=== PATIENT | male | born 1950 | race Caucasian/White ===

== ENCOUNTER 2023-12-10 13:59 | Outpatient (AMB) | payer OTHER, SELFPAY ==
--- NOTE | 2023-12-10 14:03 | HO.NEPHOV ---
Vital Signs 12/10/23 14:15 Height 5 ft 7 in Weight 185 lb BMI 29.0 Intake Visit Reasons: Gorge'carlos 12/02 missed appt Allergies No Known Allergies Allergy (Verified 12/10/23 14:18) HPI Comments Details: I had the privilege of seeing Thomas by tele health in of his chronic kidney disease and nephrolithiasis. He has not had any renal function blood work done for some time. His blood sugar control is not optimal. He follows up with Urology for his renal stone disease. He denies any nausea, vomiting, diarrhea hematuria, chest pain, shortness of, pedal edema or orthostatic symptoms. [facility] He maintains good hydration and avoids nonsteroidal anti-inflammatories. There were no new active issues at the time this tele health visit. [facility]LY [facility] Medical History (Updated 12/10/23 @ 14:32 by Ramy Diaz MD) Essential (primary) hypertension Chronic kidney disease, stage 3a Renal stone Surgical History (Updated 12/10/23 @ 14:17 by Aneta Fletcher MA) H/O hemorrhoidectomy H/O colonoscopy Family History (Updated 12/10/23 @ 14:18 by Aneta Fletcher MA) Mother Cancer Father Heart disease Brother Heart disease Social History (Updated 12/10/23 @ 14:16 by Aneta Fletcher MA) Alcohol intake: never Patient Tobacco Use Status: Former Tobacco user Use of substances other than those prescribed or required for medical reasons: No Physical Exam Vital Signs: BMI result Body Mass Index 29.0 Telehealth Telehealth Telehealth Platform: Telephone Location of provider rendering services: practice address Location of patient: address on file Patient Identification confirmed using: Name, : Yes Telehealth method: voice only Patient verbally consented to treatment: Yes Patient verbally consented to billing insurance company: Yes Patient informed of any privacy concerns related to visit: No Minutes spent on Phone/Video with Pt.: 10 Results Reviewed Nephrology Results: No Data to Display Assessment & Plan Assessment & Plan (1) Renal stone: Code(s): N20.0 - Calculus of kidney Category: Medical (2) Chronic kidney disease, stage 3a: Code(s): N18.31 - Chronic kidney disease, stage 3a Category: Medical Plan Thomas has CKD stage 3 at baseline. His renal functions had been stable as per the patient. He has not had any renal function blood work for some time which I ordered. He avoids nonsteroidal anti-inflammatories. His blood pressure has been at goal. He should maintain better blood sugar control. He is not on any thiazides. He was encouraged to maintain good hydration and avoid nonsteroidal anti-inflammatories. I did not make any medication changes today but rather ordered follow-up blood work and urine studies. Answered all questions. Follow-up appointment given. Orders: Orders Electrolytes Today I10 - Essential (primary) hypertension, N18.31 - Chronic kidney disease, stage 3a, N20.0 - Calculus of kidney Calcium Today I10 - Essential (primary) hypertension, N18.31 - Chronic kidney disease, stage 3a, N20.0 - Calculus of kidney Blood Urea Nitrogen Today I10 - Essential (primary) hypertension, N18.31 - Chronic kidney disease, stage 3a, N20.0 - Calculus of kidney Complete Blood Count Auto Diff Today I10 - Essential (primary) hypertension, N18.31 - Chronic kidney disease, stage 3a, N20.0 - Calculus of kidney Protein Creatinine Ratio, Ur Today I10 - Essential (primary) hypertension, N18.31 - Chronic kidney disease, stage 3a, N20.0 - Calculus of kidney Creatinine Today I10 - Essential (primary) hypertension, N18.31 - Chronic kidney disease, stage 3a, N20.0 - Calculus of kidney Hemoglobin A1c Today I10 - Essential (primary) hypertension, N18.31 - Chronic kidney disease, stage 3a, N20.0 - Calculus of kidney Coding Level of Care Code Tele Est Pt Level 4 (70976) Diagnoses Renal stone N20.0 Chronic kidney disease, stage 3a N18.31
[2023-12-10 14:15] VITALS: BMI 29.0
== END 2023-12-10 15:22 | disposition home or self-care (01) ==
PROVIDERS: Visit Provider Internal Medicine Nephrology
DX: N20.0 Calculus of kidney (principal); N18.31 Chronic kidney disease, stage 3a
CPT/HCPCS: 99214

== ENCOUNTER → 2023-12-10 13:59 | Outpatient (BNVA) | payer OTHER, SELFPAY | PROVIDERS: Visit Provider Internal Medicine Nephrology ==

== ENCOUNTER 2024-03-25 09:17 | Outpatient (REF) | payer OTHER, SELFPAY ==
[2024-03-25 17:35] LABS: MANUAL DIFF FLAG NO
[2024-03-25 17:38] LABS: Basophils Percent Auto 0.6 % (0-2); Eosinophils Absolute Auto 0.2 X10*3/uL (0.0-0.4); Eosinophils Percent Auto 3.1 % (0-4); Hematocrit 36.7 % (42.0-52.0); Hemoglobin 12.5 g/dl (14.0-18.0); Imm Gran Abs Auto 0.01 X10*3/uL (0.00-0.03); Imm Gran Pct Auto 0.2 % (0.0-0.4); Lymphocytes Absolute Auto 1.4 X10*3/uL (1.2-4.9); Lymphocytes Percent Auto 27.3 % (20-40); Mean Corpuscular HGB Conc 34.1 g/dl (31.0-36.0); Mean Corpuscular Hemoglobin 31.5 pg (27.0-33.0); Mean Corpuscular Volume 92.4 fL (80.0-98.0); Mean Platelet Volume 10.4 fL (9.4-12.4); Monocytes Absolute Auto 0.3 X10*3/uL (0.1-1.2); Monocytes Percent Auto 6.6 % (2-11); Neutrophils Absolute Auto 3.2 x10*3/uL (2.0-8.3); Neutrophils Percent Auto 62.2 % (45-73); Platelet Count 211 X10*3/uL (160-400); Red Blood Count 3.97 X10*6/uL (4.60-5.80); White Blood Count 5.2 X10*3/uL (4.8-10.8)
[2024-03-25 17:49] LABS: Anion Gap 12 (12-20); Blood Urea Nitrogen 19 mg/dL (9-16); Calcium 9.2 mg/dL (8.4-10.2); Carbon Dioxide 26 mmol/L (22-29); Chloride 106 mmol/L (96-108); Estimated Glomerular Filt Rate 51; Potassium 4.1 mmol/L (3.3-5.1); Sodium 140 mmol/L (135-145)
[2024-03-25 18:06] LABS: Creatinine Urine 188.73 mg/dL; Protein/Creatinine Ratio, Ur 0.12 (<0.2); Total Protein Urine Random 22 mg/dL (<12)
[2024-03-26 07:29] LABS: Estimated Average Glucose 128 mg/dL; Hemoglobin A1c % 6.1 % (<6.0)
== END 2024-03-25 09:18 | disposition home or self-care (01) ==
LOC: HO.HKASLDS 09:17
PROVIDERS: Visit Provider Internal Medicine Nephrology
DX: I12.9 Hypertensive chronic kidney disease with stage 1 through stage 4 chronic kidney disease, or unspecified chronic kidney disease (principal); N18.31 Chronic kidney disease, stage 3a; N20.0 Calculus of kidney
CPT/HCPCS: 36415; 80051; 82310; 82565; 82570; 83036; 84156; 84520; 85025

== ENCOUNTER 2024-03-31 10:55 | Outpatient (AMB) | payer OTHER, SELFPAY ==
[2024-03-31 11:05] VITALS: BP 130/64; PULSE 74; O2SAT 98; BMI 27.4
--- NOTE | 2024-03-31 11:05 | HO.NEPHOV_ITS ---
Vital Signs 03/31/24 11:05 Height 5 ft 7 in Weight 175 lb BMI 27.4 BP 130/64 Blood Pressure Location Lt brachial Position Sitting Pulse 74 Pulse Source Pulse Oximeter Pulse Oximetry (%) 98 Oxygen Delivery Method Room Air Intake Visit Reasons: 4 Months- Conf Tug Master Required: No Accompanied by: Self / Same As Patient Allergies No Known Allergies Allergy (Verified 03/31/24 11:07) HPI Comments Details: I had the privilege of seeing Thomas in of his chronic kidney disease and nephrolithiasis. His blood sugar control is not optimal. He used to follow up with Urology for his renal stone disease. He denies any nausea, vomiting, diarrhea hematuria, chest pain, shortness of, pedal edema or orthostatic symptoms. [facility] He maintains good hydration and avoids nonsteroidal anti-inflammatories. There were no new active issues at the time PENDING SALE TO [facility] Medical History (Updated 12/10/23 @ 14:32 by Ramy Diaz MD) Essential (primary) hypertension Chronic kidney disease, stage 3a Renal stone Surgical History H/O hemorrhoidectomy H/O colonoscopy Family History Mother Cancer Father Heart disease Brother Heart disease Social History Alcohol intake: never Patient Tobacco Use Status: Former Tobacco user Review of Systems Const All systems reviewed & are unremarkable except as noted in HPI and below Physical Exam Vital Signs: Last Vital Signs Pulse 74 03/31/24 11:05 BP 130/64 03/31/24 11:05 Pulse Ox 98 03/31/24 11:05 Oxygen Delivery Method Room Air 03/31/24 11:05 BMI result Body Mass Index 27.4 Const General: comfortable and no acute distress Orientation/consciousness: patient oriented x3 HEENT Head: Yes normocephalic Mouth: Normal oral and palatal mucosa present Eyes EOM: EOMs intact bilaterally Neck Neck: Yes supple Resp Auscultation: clear to auscultation bilaterally Cardio Jugular venous distension: no JVD Rate: regular rate GI Palpation (GI): Soft to palpation Auscultation: normal bowel sounds General: Yes no CVA tenderness Back/Spine/Pelvis Back: no CVA tenderness Skin General skin exam: no rashes or lesions noted Neuro General: patient oriented x3 and moves all extremities Extrem General: Yes no pedal edema Results Reviewed Nephrology Results: Hgb 12.5 g/dl (14.0-18.0) L 03/25/24 WBC 5.2 X10*3/uL (4.8-10.8) 03/25/24 Plt Count 211 X10*3/uL (160-400) 03/25/24 Sodium 140 mmol/L (135-145) 03/25/24 Potassium 4.1 mmol/L (3.3-5.1) 03/25/24 Chloride 106 mmol/L (96-108) 03/25/24 Carbon Dioxide 26 mmol/L (22-29) 03/25/24 BUN 19 mg/dL (9-16) H 03/25/24 Creatinine 1.37 mg/dL (0.5-1.4) 03/25/24 Calcium 9.2 mg/dL (8.4-10.2) 03/25/24 Urine Creatinine 188.73 mg/dL 03/25/24 Protein/Creatinin Ratio 0.12 (<0.2) 03/25/24 Assessment & Plan Assessment & Plan (1) Chronic kidney disease, stage 3a: Code(s): N18.31 - Chronic kidney disease, stage 3a Category: Medical (2) Essential (primary) hypertension: Code(s): I10 - Essential (primary) hypertension Category: Medical (3) Renal stone: Code(s): N20.0 - Calculus of kidney Category: Medical Plan Thomas has CKD stage 3 at baseline. His renal functions had been stable. He is a great candidate for SGLT2 i. He avoids nonsteroidal anti-inflammatories. His blood pressure has been at goal. He should maintain better blood sugar control. He was encouraged to maintain good hydration and avoid nonsteroidal anti- inflammatories. I did not make any medication changes today but rather ordered follow-up blood work and urine studies. Answered all questions. Follow-up appointment given. Orders: Orders Electrolytes Today I10 - Essential (primary) hypertension, N18.31 - Chronic kidney disease, stage 3a, N20.0 - Calculus of kidney Creatinine Today I10 - Essential (primary) hypertension, N18.31 - Chronic ki dney disease, stage 3a, N20.0 - Calculus of kidney Blood Urea Nitrogen Today I10 - Essential (primary) hypertension, N18.31 - Chronic kidney disease, stage 3a, N20.0 - Calculus of kidney Coding Level of Care Code Est Pt Level 4 (21791) Diagnoses Chronic kidney disease, stage 3a N18.31 Essential (primary) hypertension I10 Renal stone N20.0
== END 2024-03-31 11:19 | disposition home or self-care (01) ==
PROVIDERS: Visit Provider Internal Medicine Nephrology
DX: N18.31 Chronic kidney disease, stage 3a (principal); I10 Essential (primary) hypertension; N20.0 Calculus of kidney
CPT/HCPCS: 99214

== ENCOUNTER → 2024-03-31 10:55 | Outpatient (BNVA) | payer OTHER, SELFPAY | PROVIDERS: Visit Provider Internal Medicine Nephrology | DX: I12.9 Hypertensive chronic kidney disease with stage 1 through stage 4 chronic kidney disease, or unspecified chronic kidney disease (principal); N18.31 Chronic kidney disease, stage 3a; N20.0 Calculus of kidney | CPT/HCPCS: 99212 ==

== ENCOUNTER 2024-09-10 10:23 | Outpatient (REF) | payer OTHER, SELFPAY ==
--- OUTSIDE RECORDS SUMMARY | 2024-09-10 11:32 | XMS_ITS | Encounter Summary ---
Author Name [facility] Organization [facility] Address [address] [place] [address] Care Team Providers Care Chief Compliance Officer Name Role Phone FIDENCIO RUSH Primary Care Provider Unavailabl e Insurance Providers: All historical and current Section Date Range: From patient's date of to the date document was created. This section includes the names of all active insurance providers for the patient. Insurance Provider Type of Coverage Plan Name Start of Policy Coverage End of Policy Coverage Group Number Member ID Insurance Provider's Telephone Number Policy Harden's Name Patient's Relationship to Policy Harden [employer] [facility] MEDICARE ADVANTAGE [place] ID[place] Oct 21, 2023 [id number] [phone] Thelma GERMAN PATIENT [facility]UARDO [facility] ([place]) MEDICARE ADVANTAGE [facility] Jul 22, 2020 [id number] Thelma GERMAN PATIENT MEDICAID MEDICAID [facility] Jul 22, 2012 MEDICAI D [id number] Thelma GERMAN PATIENT Selected Encounter This section includes the information on record at [place] for the Encounter. Date/Time Encounter Type Encounter Description Reason Provider Source Jun 26, 2024 08:30 AM OFFICE O/P EST MOD 30 MIN PRIMARY CARE/MEDICINE ICD-10-CM G31.84 Mild cognitive impairment of uncertain or unknown etiology FIDENCIO RUSH [place] Encounter Template Text not used by [facility] Assessments - Encounter Diagnoses This section includes the primary and secondary diagnoses documented for the Encounter. Date/Time Primary/Secondary Diagnosis Diagnosis Name Provider Source Jun 30, 2024 02:04 PM PRIMARY Mild cognitive impairment of uncertain or unknown etiology FIDENCIO RUSH [place] Jun 30, 2024 02:04 PM SECONDARY Chronic kidney disease, stage 3 unspecified FIDENCIO RUSH [place] Jun 30, 2024 02:04 PM SECONDARY Essential (primary) hypertension FIDENCIO RUSH [place] Jun 30, 2024 02:04 PM SECONDARY Mixed hyperlipidemia FIDENCIO RUSH [place] Jun 30, 2024 02:04 PM SECONDARY Type 2 diabetes mellitus without complications FIDENCIO RUSH [place] Jun 30, 2024 02:04 PM SECONDARY Ulcerative colitis, unspecified with other complication NIMA RUSHRA Ledezma [place] Plan of Treatment: Future Appointments (+ 6 months) and Future Tests (+/- 45 days) The Plan of Treatment section includes [facility] care [facility] the [facility] This section includes future appointments and future orders which are active, pending or scheduled. Future Appointments This section includes appointments that were scheduled to occur 6 months from the date of the Encounter, up to a maximum of 20 appointments. The data comes from all [place] treatment facilities. Appointment Date/Time Appointment Type Appointme nt Facility Name Jul 17, 2024 09:45 AM AMBULATORY - MEDICINE [facility] Sep 17, 2024 09:30 AM AMBULATORY MEDICINE [facility] Dec 25, 2024 09:30 AM AM[facility]ORY - MEDICINE [facility] Lab Results: +/- 30 days of the encounter This section includes the Chemistry and Hematology Lab Results on record with [place] for the patient. Radiology Reports and Pathology Reports are provided separately, in subsequent sections. Lab Results This section contains the Chemistry/Hematology Results that were resulted 30 days before or 30 daysafter the date of the Encounter. Date/Time Source Result Type Result - Unit Interpretation Reference Range Comment Jun 22, 2024 09:11 AM [place] HEMOGLOBIN A1C PANEL Specimen Type: BLOOD Comment: Values obtained from A1C measurements can vary. For atypical A1C assays, a reported value of 7.0 could actually be between 6.72 and 7.28 if measured by a reference method. A reported value of 9.0 could actually be between 8.73 and 9.27. Ref: http://www.ngs p.org/CAPdata. asp Ordering Provider: HIPOLITO HECK Report Released Date/Time: Mar 30, 2024 07:54 AM Reporting Lab: [address] [address] Performing Lab: [facility] [address] [address] HEMOGLOBIN A1C 5.8 H 4.0-5.6 Jun 22, 2024 09:11 AM [place] TSH Specimen Type: SERUM No comment entered. Ordering Provider: HIPOLITO HECK Report Released Date/Time: Mar 30, 2024 07:54 AM Reporting Lab: [address] [address] Performing Lab: [address] [address] TSH 1.83 u[IU]/mL 0.35-5.00 Jun 22, 2024 09:11 AM [facility] LIPID PANEL FASTING Specimen Type: SERUM No comment entered. Ordering Provider: HIPOLITO HECK Report Released Date/Time: Mar 30, 2024 07:54 AM Reporting Lab: [address] [address] Performing Lab: [address] [address] CHOLESTEROL 161 mg/dL TRIGLYCERIDE 74 mg/dL 0-150 LDL calculated 101 mg/dL 0-129 CHOL/HDL 3.6 HDL CHOLESTEROL 45 mg/dL 40-60 Jun 22, 2024 09:11 AM [facility] BASIC METABOLIC PANEL (fasting) Specime n Type: SERUM No comment entered. Ordering Provider: HIPOLITO HECK Report Released Date/Time: Mar 30, 2024 07:54 AM Reporting Lab: [address] [address] Performing Lab: [address] [address] UREA NITROGEN 20 mg/dL 7-25 GLUCOSE 137 mg/dL H 65-100 SODIUM 140 mmol/L 135-145 POTASSIUM 4.5 mmol/L 3.5-5.0 CHLORIDE 106 mmol/L 100-110 CO2 24 meq/L 20-30 CREATININE, Serum 1.41 mg/dL H 0.50-1.40 eGFR(CKD-EPI 2020) 53 mL/min L >60 Jun 22, 2024 09:11 AM [place] LIVER FUNCTION Specimen Type: SERUM No comment entered. Ordering Provider: HIPOLITO HECK Report Released Date/Time: Mar 30, 2024 07:54 AM Reporting Lab: [address] [address] Performing Lab: [address] [address] PROTEIN,TOTAL 6.6 g/dL 6.0-8.3 ALBUMIN 3.6 g/dL 3.5-5.0 ALKALINE PHOSPHATASE 78 U/L 40-150 AST 12 U/L 5-34 ALT 15 U/L BILIRUBIN, TOTAL 0.5 mg/dL 0.2-1.2 Jun 22, 2024 09:11 AM [place] MICROALBUMIN CREATININE RATIO PANEL Spe cimen Type: URINE No comment entered. Ordering Provider: HIPOLITO HECK Report Released Date/Time: Mar 30, 2024 07:54 AM Reporting Lab: [address] [address] Performing Lab: [address] [address] MICROALBUMIN/C REATININE RATIO 6.2 mg/g 0-29.9 MICROALBUMIN,Q UANTITATIVE 0.9 mg/dL RR UNAVAIL CREATININE URINE 146.34 mg/dL Jun 22, 2024 09:11 AM [place] CBC AND DIFF (AUTO) Specimen Type: BLOOD No comment entered. Ordering Provider: HIPOLITO HECK Report Released Date/Time: Mar 30, 2024 07:54 AM Reporting Lab: [address] [phone] Performing Lab: [address] [address] WBC 4.72 10*3/uL 4.50-11.00 RBC 3.61 10*6/uL [...] 0.4 0.0-0.7 IMMATURE GRAN, ABS 0.02 10*3/uL 0.00-0.06 NRBC % 0.0 0.0-0.0 NRBC, ABS 0.00 10*3/uL 0.00-0.00 Jun 22, 2024 09:10 AM [place] VITAMIN D (25-OH) Specimen Type: SERUM No comment entered. Ordering Provider: FIDENCIO RUSH Report Released Date/Time: Jun 09, 2024 10:10 AM Reporting Lab: [facility] [address] [facility] [address] Performing Lab: [address] [address] VITAMIN D (25-OH) 46 ng/mL 20-50 Vital [...] and tobacco- related health factors from the [place] facility where the Encounter took place. Current Smoking Status This section includes the most current smoking, or tobacco-related health factor, from the [place] facility where the Encounter took place. Date/Time Current Smoking Status Comment Josie ity Nov 04, 2023 08:30 AM VA-TOBACCO FORMER USER [facility] Tobacco Use History This section includes a history of the smoking, or tobacco-related health factors, that were collected on or before the date of the Encounter. The data comes from the [place] facility where the Encounter took place. Date/Time Smoking Status/Tobacco Use Comment F acyesenia Nov 04, 2023 08:30 AM VA-TOBACCO QUIT 15 YRS OR MORE [place] November 30, 2022 10:00 AM VA-TOBACCO FORMER USER [place] November 30, 2022 10:00 AM VA-TOBACCO QUIT 15 YRS OR MORE [place] Aug 24, 2021 01:00 PM VA-TOBACCO FORMER USER [place] Aug 24, 2021 01:00 PM VA-TOBACCO QUIT 15 YRS OR MORE [place] Aug 23, 2020 10:00 AM VA-TOBACCO FORMER USER [place] Aug 23, 2020 10:00 AM VA-TOBACCO QUIT 15 YRS OR MORE [place] Feb 02, 2019 10:41 AM VA-TOBACCO FORMER USER [place] Feb 02, 2019 10:41 AM VA-TOBACCO QUIT 15 YRS OR MORE [place] Jun 16, 2018 02:13 PM VA-TOBACCO FORMER USER [place] Jun 16, 2018 02:13 PM VA-TOBACCO QUIT 15 YRS OR MORE [place] Jan 23, 2017 09:31 AM QUIT TOBACCO USE > 7 YEARS AGO reports quitting 25/30 years ago [place] Jan 19, 2016 01:51 PM QUIT TOBACCO USE > 7 YEARS AGO [place] Apr 14, 2010 08:37 AM QUIT TOBACCO USE > 7 YEARS AGO stopped tobacco 30 years ago [place] Advance Directives: All historical and current Section Date Range: From patient's date of to the date document was created. This section includes ALL of a patient's completed or amended [place] Advance and Rescinded Directives. The entries below indicate that a directive exists for the patient, but an actual copy is not included with this document. The data comes from all [facility]. Date Advance Directives Provider Source November 19, [...] LPN LPN Signed: 06/26/2024 08:41 PERLA BELL Jun 26, 2024 08:17 AM PRIMARY CARE NURSE PRACTITIONER OUTPATIENT NOTE: LOCAL TITLE: NURSE PRACTITIONER OUTPATIENT NOTE STANDARD TITLE: PRIMARY CARE NURSE PRACTITIONER OUTPATIENT NOTE DATE OF NOTE: JUN 26, 2024@08:17 ENTRY DATE: JUN 26, 2024@08:17:25 AUTHOR: FIDENCIO RUSH EXP COSIGNER: URGENCY: STATUS: COMPLETED PRIMARY CARE VISIT DAWIT GERMAN, is a 74 y/o WHITE MALE who presents today at the [facility]. TYPE OF VISIT: Face to face [...] PCP GI HISTORY: PERIOD OF SERVICE - [facility] FROM Jul TO Jul COMBAT SERVICE INDICATED: [...] diet. Continue Rx 4. Hypertension (SNOMED CT [id number]) - stable, continue Rx 5. Mixed hyperlipidaemia [...] Home Information Source: FROM PATIENT'S RECALL Comment: [facility] provided vaccine Medication Reconciliation: Outpatient: Has the patient been taking medications as documented in the EMLR? YES: The patient has been taking medications as documented in the EMLR. Essential Medication List for Review used to complete this medication reconciliation. INCLUDED IN THIS LIST: Alphabetical list of active outpatient prescriptions dispensed from this [place] (local) and dispensed from another [place] or [facility] facility (remote) as well as inpatient orders [...] CERTIFIED NURSE PRACTITIONER Signed: 06/30/2024 14:04 FIDENCIO RUSHFIELD
--- OUTSIDE RECORDS SUMMARY | 2024-09-10 11:33 | XMS_ITS | Encounter Summary ---
Author Name [facility] [place] [facility] [place] Address [address] [place] [address] Care Team Providers Care Salvage Engineering Technician Name Role Phone FIDENCIO RUSH Primary Care [...] Name Patient's Relationship to Policy H[place] AETNA [facility] MEDICARE [place]VANTAGE [place] IDUAL [place] Oct 21, 2023 [id number] [phone] Thelma GERMAN PATIENT EDUARDO MCR (R) MEDICARE ADVANTAGE [facility] Jul 22, 2020 [id number] Thelma GERMAN PATIENT MEDICAID MEDICAID [facility] Jul 22, 2012 MEDICAI D [id number] Thelma GERMAN PATIENT Selected Encounter This section includes the information on record at [place] for the Encounter. Date/Time Encounter Type Encounter Description Reason Provider Source Nov 04, 2023 08:30 AM OFFICE O/P EST MOD 30 MIN PRIMARY CARE/MEDICINE ICD-10-CM I10 Essential (primary) hypertension HIPOLITO HECK Encounter Template Text not used by [facility] Assessments - Encounter Diagnoses This section includes the primary and secondary diagnoses documented for the Encounter. Date/Time Primary/Secondary Diagnosis Diagnosis Name Provider Source Nov 04, 2023 09:28 AM PRIMARY Essential (primary) hypertension HIPOLITO HECK [facility] Nov 04, 2023 09:28 AM SECONDARY Hyperlipidemia, unspecified HIPOLITO HECK [facility] Nov 04, 2023 09:28 AM SECONDARY Type 2 diabetes mellitus without complications HIPOLITO HECK [facility] Nov 04, 2023 09:28 AM SECONDARY Ulcerative colitis, unspecified with other complication HIPOLITO HECK [facility] Plan of Treatment: Future Appointments (+ 6 months) and Future Tests (+/- 45 days) The Plan of Treatment section includes future care activities for the [facility] [place] [facility] This section includes future appointments and future orders which are active, pending or scheduled. Future Appointments This section includes appointments that were scheduled to occur 6 months from the date of the Encounter, up to a maximum of 20 appointments. The data comes from all [place] treatment facilities. Appointment Date/Time Appointment Type Appointme nt Facility Name November 27, 2023 09:00 AM AMBULATORY - MEDICINE [facility] November 27, 2023 09:15 AM AMBULATORY - MEDICINE [facility] December 02, 2023 10:00 AM AMBULATORY MEDICINE [facility] December 10, 2023 02:15 PM [facility] MEDICINE [facility] Jan 28, 2024 01:00 PM AMBULATORY - MEDICINE [facility] Lab Results: +/- 30 days of the encounter This section includes the Chemistry and Hematology Lab Results on record with [place] for the patient. Radiology Reports and Pathology Reports are provided separately, in subsequent sections. Lab Results This section contains the Chemistry/Hematology Results that were resulted 30 days before or 30 daysafter the date of the Encounter. Date/Time Source Result Type Result - Unit Interpretation Reference Range Comment November 27, 2023 09:53 AM [facility] VITAMIN K, PLASMA Specimen Type: PLASMA Comment: This test was developed and its analytical performance characteristics have been determined by [employer]. It has not been cleared or approved by the U.S. Food and Drug Administration. This assay has been validated pursuant to the CLIA regulations and is used for clinical purposes. Test Performed by Lakeisha Nye, [facility], [address] [place], [place] Thomas Pinzon M.D., Ph.D., Director of Laboratories , [place] [id number] TEST PERFORMED AT: , Ordering Provider: FIDENCIO RUSH Report Released Date/Time: November 27, 2023 09:48 AM Reporting Lab: [facility] [address] [facility] [address] Performing Lab: [facility] [address] [facility], [address] [place] [address] VITAMIN K, PLASMA 646 pg/mL 130-1500 November 27, 2023 09:53 AM [facility] FOLATE (WROX) Specimen Type: SERUM No comment entered. Ordering Provider: FIDENCIO RUSH Report Released Date/Time: November 27, 2023 09:48 AM Reporting Lab: [facility] [address] [facility] [address] Performing Lab: [facility] [address] [facility] [address] FOLATE (WROX) 7.95 ng/mL >5.2 November 27, 2023 09:53 AM [facility] FERRITIN Specimen Type: SERUM No comment entered. Ordering Provider: FIDENCIO RUSH Report Released Date/Time: November 27, 2023 09:48 AM Reporting Lab: [facility] [address] [facility] [address] Performing Lab: [facility] [address] [address] FERRITIN 24 ng/mL 20-300 November 27, 2023 09:53 AM [facility] PTT Specimen Type: PLASMA No comment entered. Ordering Provider: FIDENCIO RUSH Report Released Date/Time: November 27, 2023 09:48 AM Reporting Lab: [facility] [address] [facility] [address] Performing Lab: [facility] [address] [facility] [address] PTT 32.6 s 26.0-36.0 November 27, 2023 09:53 AM [facility] IRON & TIBC PANEL Specimen Type: SERUM No comment entered. Ordering Provider: FIDENCIO RUSH Report Released Date/Time: November 27, 2023 09:48 AM Reporting Lab: [address] [address] Performing Lab: [address] [address] TIBC 286 ug/dL 204-475 IRON 64 ug/dL 40-160 Transferrin Saturation 22.3 20.0-50.0 November 27, 2023 09:53 AM [facility] VITAMIN B12 Specimen Type: SERUM No comment entered. Ordering Provider: FIDENCIO RUSH Report Released Date/Time: November 27, 2023 09:48 AM Reporting Lab: [address] [address] Performing Lab: [address] [address] VITAMIN B12 872 pg/mL 200-900 November 27, 2023 09:53 AM [facility] PT & INR (PROTIME) Specimen Type: PLASMA No comment entered. Ordering Provider: FIDENCIO RUSH Report Released Date/Time: November 27, 2023 09:48 AM Reporting Lab: [address] [address] Performing Lab: [address] [address] INR 1.0 PROTIME 11.7 s 10.0-13.1 November 27, 2023 09:53 AM [facility] CBC AND DIFF (AUTO) Specimen Type: BLOOD No comment entered. Ordering Provider: FIDENCIO RUSH Report Released Date/Time: November 27, 2023 09:48 AM Reporting Lab: [address] [address] Performing Lab: [address] [address] WBC 5.32 10*3/uL 4.50-11.00 RBC 3.73 10*6/uL L 4.23-5.66 HGB 11.4 g/dL L 12.8-17 HCT 33.8 L 39.2-50.4 MCV 90.6 fL 82-99 MCHC 33.7 g/dL 30.8-35.1 PLT 247 10*3/uL 140-360 RDW-CV 13.0 12.0-16.0 [place], Abs 0.30 10*3/uL 0.30-1.10 MCH 30.6 pg 26.2-32.6 Neut % 63.1 43.7-75.8 Lymph % 26.7 14.0-42.3 [place] % 5.6 5.1-13.7 Eos % 3.6 0.4-6.8 Baso % 0.6 0.1-2.0 Neut, Abs 3.36 10*3/uL 2.20-7.60 Lymph, Abs 1.42 10*3/uL 1.00-3.20 Eos, Abs 0.19 10*3/uL 0.03-0.44 Baso, Abs 0.03 10*3/uL 0.01-0.13 Immature Gran % 0.4 0.0-0.7 Immature Gran, Abs 0.02 10*3/uL 0.00-0.06 Nov 04, 2023 09:10 AM [facility] VITAMIN D 25-OH (Therapy monitor) Speci men Type: SERUM Comment: Vitamin D, 25-Hydroxy reports concentrations of two common forms, 25-OHD2 and 25-OHD3. 25-OHD3 indicates both endogenous production and supplementation. 25-OHD2 is an indicator of exogenous sources such as diet or supplementation. Therapy is based on measurement of Total 25-OHD, with levels <20 ng/mL indicative of Vitamin D deficiency, while levels between 20 ng/mL and 30 ng/mL suggest insufficiency. Optimal levels are > or = 30 ng/mL. For additional information, please refer to http://education .[employer].[facility]/faq/ZYN269 (This link is being provided for informational/ educational purposes only.) This test was developed and its analytical performance characteristics have been determined by [employer] [place], [place]. It has not been cleared or approved by the U.S. Food and Drug Administration. This assay has been validated pursuant to the CLIA regulations and is used for clinical purposes. This test was developed and its analytical performance characteristics have been determined by [employer]. It has not been cleared or approved by the U.S. Food and Drug Administration. This assay has been validated pursuant to the CLIA regulations and is used for clinical purposes. Test Performed by [facility], [facility], [address] [place] [address] Thomas Pinzon M.D., Ph.D., Director of Laboratories , CLIA [id number] TEST PERFORMED AT: , Ordering Provider: HIPOLITO HECK Report Released Date/Time: Sep 26, 2023 09:36 AM Reporting Lab: [facility] [address] [facility] [address] Performing Lab: [facility] [address] [address] VITAMIN D, 25-OH, TOTAL 41 ng/mL 30-100 VITAMIN D, 25-OH, D3 41 ng/mL VITAMIN D, 25-OH, D2 <4 ng/mL Nov 04, 2023 09:10 AM [facility] HEMOGLOBIN A1C PANEL Specimen Type: BLOOD Comment: Values obtained from A1C measurements can vary. For atypical A1C assays, a reported value of 7.0 could actually be between 6.72 and 7.28 if measured by a reference method. A reported value of 9.0 could actually be between 8.73 and 9.27. Ref: http://www.ngsp. org/CAPdata.asp Ordering Provider: HIPOLITO HECK Report Released Date/Time: Sep 26, 2023 09:36 AM Reporting Lab: [facility] [address] [facility] [address] Performing Lab: [facility] [address] [facility] [address] HEMOGLOBIN A1C 6.4 H 4.0-5.6 Nov 04, 2023 09:10 AM [facility] BASIC METABOLIC PANEL (fasting) Specime n Type: SERUM No comment entered. Ordering Provider: HIPOLITO HECK Report Released Date/Time: Sep 26, 2023 09:36 AM Reporting Lab: [address] [address] Performing Lab: [facility] [address] [facility] [address] UREA NITROGEN 13 mg/dL 7-25 GLUCOSE 153 mg/dL H 65-100 SODIUM 138 mmol/L 135-145 POTASSIUM 4.2 mmol/L 3.5-5.0 CHLORIDE 104 mmol/L 100-110 CO2 23 meq/L 20-30 CREATININE, Serum 1.37 mg/dL 0.50-1.40 eGFR(CKD-EPI 2020) 54 mL/min L >60 Nov 04, 2023 09:10 AM [facility] VITAMIN B12 Specimen Type: SERUM No comment entered. Ordering Provider: HIPOLITO HECK Report Released Date/Time: Sep 26, 2023 09:36 AM Reporting Lab: [address] [address] Performing Lab: [address] [address] VITAMIN B12 779 pg/mL 200-900 Nov 04, 2023 09:10 AM [facility] LIPID PANEL FASTING Specimen Type: SERUM No comment entered. Ordering Provider: HIPOLITO HECK Report Released Date/Time: Sep 26, 2023 09:36 AM Reporting Lab: [address] [address] Performing Lab: [address] [address] CHOLESTEROL 224 mg/dL H TRIGLYCERIDE 154 mg/dL H 0-150 LDL calculated 146 mg/dL H 0-129 CHOL/HDL 4.8 HDL CHOLESTEROL 47 mg/dL 40-60 Nov 04, 2023 09:10 AM [facility] LIVER FUNCTION Specimen Type: SERUM No comment entered. Ordering Provider: HIPOLITO HECK Report Released Date/Time: Sep 26, 2023 09:36 AM Reporting Lab: [address] [address] Performing Lab: [address] [address] PROTEIN,TOTAL 7.1 g/dL 6.0-8.3 ALBUMIN 3.9 g/dL 3.5-5.0 ALKALINE PHOSPHATASE 75 U/L 40-150 AST 9 U/L 5-34 ALT 11 U/L BILIRUBIN, TOTAL 0.7 mg/dL 0.2-1.2 Vital Signs: All taken on the encounter date This section contains inpatient and outpatient Vital Signs collected on the date of the Encounter. Date/Time Temperature Pulse Blood Pressure Respiratory Rate SP02 Pain Height Weight Body Mass Index Source Nov 04, 2023 08:32 AM 69 137/80 93 178 29 [place] Social History: Smoking Status (Most current) and Tobacco Use (All prior to encounter date) This section includes the most current, and the historical, smoking and tobacco- related health factors from the [place] facility where the Encounter took place. Current Smoking Status This section includes the most current smoking, or tobacco-related health factor, from the [place] facility where the Encounter took place. Date/Time Current Smoking Status Comment Facil ity Nov 04, 2023 08:30 AM VA-TOBACCO FORMER USER [facility] Tobacco Use History This section includes a history of the smoking, or tobacco-related health factors, that were collected on or before the date of the Encounter. The data comes from the [place] facility where the Encounter took place. Date/Time Smoking Status/Tobacco Use Comment F acility Nov 04, 2023 08:30 AM VA-TOBACCO QUIT 15 YRS OR MORE [facility] November 30, 2022 10:00 AM VA-TOBACCO FORMER USER [facility] November 30, 2022 10:00 AM VA-TOBACCO QUIT 15 YRS OR MORE [facility] Aug 24, 2021 01:00 PM VA-TOBACCO FORMER USER [facility] Aug 24, 2021 01:00 PM VA-TOBACCO QUIT 15 YRS OR MORE [facility] Aug 23, 2020 10:00 AM VA-TOBACCO FORMER USER [facility] Aug 23, 2020 10:00 AM VA-TOBACCO QUIT 15 YRS OR MORE [facility] Feb 02, 2019 10:41 AM VA-TOBACCO FORMER USER [facility] Feb 02, 2019 10:41 AM VA-TOBACCO QUIT 15 YRS OR MORE [facility] Jun 16, 2018 02:13 PM VA-TOBACCO FORMER USER [facility] Jun 16, 2018 02:13 PM VA-TOBACCO QUIT 15 YRS OR MORE [facility] Jan 23, 2017 09:31 AM QUIT TOBACCO USE > 7 YEARS AGO reports quitting 25/30 years ago [facility] Jan 19, 2016 01:51 PM QUIT TOBACCO USE > 7 YEARS AGO [facility] Apr 14, 2010 08:37 AM QUIT TOBACCO USE > 7 YEARS AGO stopped tobacco 30 years ago [facility] Advance Directives: All historical and current Section Date Range: From patient's date of to the date document was created. This section includes ALL of a patient's completed or amended VA Advance and Rescinded Directives. The entries below indicate that a directive exists for the patient, but an actual copy is not included with this document. The data comes from all [place] facilities. Date Advance Directives Provider Source November 19, 2017 ADVANCE DIRECTIVE [place] Encounter Notes: All associated encounter notes This section contains the clinical notes associated to the Encounter. Date/Time Encounter Note(s) Provider Source Nov 04, 2023 08:35 AM PREVENTIVE MEDICIN E NURSING NOTE: LOCAL TITLE: CLINICAL REMINDERS/NURSING STANDARD TITLE: PREVENTIVE MEDICINE NURSING NOTE DATE OF NOTE: NOV 04, 2023@08:35 ENTRY DATE: NOV 04, 2023@08:35:09 AUTHOR: ESCOBAR LIVE COSIGNER: URGENCY: STATUS: COMPLETED Advance Directive Screen MH AD: Patient has an Advance Directive on file at this [facility]. No updates are needed at this time. The patient received education about Advance Directives and written notification of his/her rights. Suicide Screen: C-SSRS Screening [place] Suicide Severity Rating Scale (C-SSRS) screener 1. Over the past month, have you wished you were or wished you could go to sleep and not wake up? No 2. Over the past month, have you had any actual thoughts of killing yourself? No 3. Over the past month, have you been thinking about how you might do this? Response not required due to responses to other questions. 4. Over the past month, have you had these thoughts and had some intention of acting on them? Response not required due to responses to other questions. 5. Over the past month, have you started to work out or worked out the details of how to kill yourself? Response not required due to responses to other questions. 6. If yes, at any time in the past month did you intend to carry out this plan? Response not required due to responses to other questions. 7. In your lifetime, have you ever done anything, started to do anything, or prepared to do anything to end your life (for example, collected pills, obtained a gun, gave away valuables, went to the roof but didn't jump)? No 8. If YES, was this within the past 3 months? Response not required due to responses to other questions. Depression Screening: Perform PHQ-2 A PHQ-2 screen was performed. The score was 0 which is a negative screen for depression. Over the past two weeks, how often have you been bothered by the following problems? 1. Little interest or pleasure in doing things Not at all 2. Feeling down, depressed, or hopeless Not at all Tobacco Use Screening: The patient is a former tobacco user. The patient quit fifteen or more years ago. Alcohol Use Screen (AUDIT-C): Alcohol Screen: SCREEN FOR ALCOHOL (AUDIT-C) An alcohol screening test (AUDIT-C) was negative (score=0). 1. How often did you have a drink containing alcohol in the past year? Consider a drink to be a 12 ounce can or bottle of regular beer, 8 ounces of malt liquor, a 5 ounce glass of table wine, or a 1.5 ounce shot of liquor (like scotch, gin, or vodka). Never 2. How many drinks containing alcohol did you have on a typical day when you were drinking in the past year? Response not required due to responses to other questions. 3. How often did you have six or more drinks on one occasion in the past year? Response not required due to responses to other questions. Sexual Orientation: The patient thinks of their sexual orientation as: Straight or Heterosexual Prefer not to answer RHS Screen: RHS Screen Environmental Check Upon inquiry, the individual reports that the environment is safe to proceed. Informed Consent to Screen and Document The individual consents to proceed with screening. The individual consents to documentation of responses. PRIMARY SCREEN: In the past 12 months, how often did a current or former intimate partner (e.g., boyfriend, girlfriend, , , sexual partner): 1. Scream or curse at you Never 2. Insult or talk down to you Never 3. Threaten you with harm Never 4. Physically hurt you Never 5. Force or pressure you to have sexual contact against your will, or when you were unable to say no Never ?? The HITS tool (items 1-4 above) is [place] copyright protected by Rosales Candelario MD, and the user has full rights to use it throughout the [place] system. PRIMARY SCREEN RESULT: The Primary Screen is NEGATIVE. The individual answered never to all forms of IPV above (i.e., answered never to all 5 items) The individual accepts education and/or resources: No EDUCATION: The individual indicated readiness to learn. Education offered during this session as noted above. The individual indicated understanding by asking relevant questions and making appropriate comments. No barriers to learning were observed or identified. PAVE Foot Check: Patient declined limb care exam. Comment: Vet DECLINED stated will book appt with The patient was advised the [place] mandates all patients with diabetes mellitus, end stage renal disease, peripheral vascular disease, or sensory neuropathy should have a complete foot check completed annually. This includes a visual exam of the skin, pedal pulses and a sensory exam. Patients with any abnormality noted during the foot check should be referred to a specialist. Colonoscopy GAP Reminder: Recommendations are needed in the clinical reminder system following the patient's most recent colorectal cancer screening/surveillance test (Colonoscopy, Sigmoidoscopy or CT Colonography) Screening is due now. Colonoscopy consult has been ordered. See orders tab for details. /harvey/ ESCOBAR LIVE LPN Licensed Practical Nurse Signed: 11/04/2023 08:52 ESCOBAR LIVE [facility] Nov 04, 2023 08:35 AM PHYSICIAN NOTE: LOCAL TITLE: MD NOTE STANDARD TITLE: PHYSICIAN NOTE DATE OF NOTE: NOV 04, 2023@08:35 ENTRY DATE: NOV 04, 2023@08:35:31 AUTHOR: HIPOLITO HECK COSIGNER: URGENCY: STATUS: COMPLETED HISTORY OF PRESENT ILLNESS: THOMAS GERMAN, is a 73 yo MALE , who presents at the [facility] for follow up visit for chronic medical conditions. labs- pending, but the will have the blood work done today prior to leave the office; the [place] states did not eat or drink anything in the morning; he states did not take his meds today Active problems - Computerized Problem List is the source for the followin- HTN 2- HLP 3- DM type 2 4- Osteopenia 5- UC The following VA and Non-VA meds were reconciled with patient: Active Outpatient Medications (including Supplies): Issue Date Status Last Fill Active Outpatient Medications Refills Expiration 1) ACCU-CHEK GUIDE (GLUCOSE) TEST STRIP ACTIVE Issu:03-28-23 Qty: 50 for 90 days Sig: USE 1 STRIP Refills: 1 Last:03-28-23 TO TEST BLOOD SUGARS EVERY OTHER DAY Expr:03-28-24 2) ALOGLIPTIN 12.5MG TAB Qty: 90 for 90 ACTIVE Issu:06-07-23 days Sig: TAKE ONE TABLET BY MOUTH Refills: 1 Last:06-17-23 ONCE DAILY Expr:06-07-24 3) AMLODIPINE BESYLATE 2.5MG TAB Qty: 90 ACTIVE Issu:05-17-23 for 90 days Sig: TAKE ONE TABLET BY Refills: 0 Last:09-04-23 MOUTH ONCE DAILY FOR HIGH BLOOD Expr:05-17-24 PRESSURE FOR BLOOD PRESSURE/HEART, DO NOT TAKE WITH GRAPEFRUIT JUICE 4) ATORVASTATIN CALCIUM 40MG TAB Qty: 45 ACTIVE Issu:12-13-22 for 90 days Sig: TAKE ONE-HALF TABLET Refills: 1 Last:06-25-23 BY MOUTH AT BEDTIME FOR HIGH Expr:12-14-23 CHOLESTEROL 5) BUDESONIDE 9MG SA TAB Qty: 30 for 30 ACTIVE Issu:06-24-23 days Sig: TAKE ONE TABLET BY MOUTH Refills: 1 Last:06-26-23 EVERY MORNING FOR 2 MONTHS Expr:06-24-24 6) CALCIUM 500MG/VITAMIN D 200 UNT TAB ACTIVE Issu:06-07-23 Qty: 60 for 60 days Sig: TAKE 1 Refills: 3 Last:06-07-23 TABLET BY MOUTH ONCE DAILY Expr:06-07-24 7) CHOLECALCIF 50MCG (D3-2,000UNIT) TAB ACTIVE Issu:11-23-22 Qty: 100 for 90 days Sig: TAKE ONE Refills: 1 Last:03-01-23 TABLET BY MOUTH ONCE DAILY FOR VITAMIN Expr:11-24-23 SUPPLEMENTATION 8) CYANOCOBALAMIN 500MCG TAB Qty: 100 for ACTIVE Issu:12-13-22 90 days Sig: TAKE ONE TABLET BY MOUTH Refills: 1 Last:03-03-23 ONCE DAILY FOR PREVENTION OF VITAMIN Expr:12-14-23 B12 DEFICIENCY 9) FERROUS SULFATE 325MG TAB Qty: 100 for ACTIVE Issu:01-15-23 90 days Sig: TAKE ONE TABLET BY MOUTH Refills: 3 Last:01-21-23 ONCE DAILY TO SUPPLEMENT IRON Expr:01-16-24 10) FEXOFENADINE HCL 180MG TAB Qty: 90 for ACTIVE Issu:04-12-23 90 days Sig: TAKE ONE TABLET BY MOUTH Refills: 2 Last:05-22-23 ONCE DAILY FOR ALLERGIES Expr:04-12-24 11) FLUTICASONE PROP 50MCG 120D NASAL INHL ACTIVE Issu:11-30-22 Qty: 3 for 90 days Sig: INSTILL 2 Refills: 2 Last:06-25-23 SPRAYS INTO EACH NOSTRIL ONCE DAILY Expr:12-01-23 FOR ALLERGIC RHINITIS 12) LANCET,SOFTCLIX Qty: 100 for 90 days ACTIVE Issu:03-28-23 Sig: USE 1 LANCET DIRECTED EVERY Refills: 3 Last:03-28-23 OTHER DAY TO TEST BLOOD SUGAR Expr:03-28-24 13) NUTR SUPL GLUCERNA THER NUTR SHAKE VAN ACTIVE Issu:03-02-23 Qty: 72 for 30 days Sig: DRINK 1 CAN Refills: 3 Last:03-06-23 BY MOUTH TWICE DAILY STRAWBERRY Expr:03-02-24 14) USTEKINUMAB 90MG/ML INJ 1ML SYR Qty: 1 ACTIVE Issu:07-04-23 for 56 days Sig: INJECT 90MG (1ML) Refills: 3 Last:08-29-23 SUBCUTANEOUSLY EVERY 8 WEEKS Expr:07-04-24 ALLERGIES: ========= [facility] LAB HISTORY: Labs pending HISTORY: PERIOD OF SERVICE - [facility] FROM Jul TO Jul COMBAT SERVICE INDICATED: No REVIEW OF SYSTEMS: No fever, chills, positive for chronic fatigue No chest pain shortness of breath or palpitations No abdominal pain nausea or vomiting; sometimes diarheea, with no blood No dysuria No joints pain No headaches or dizziness PHYSICAL EXAMINATION: WD/overweight [place] seems to be in nonacute distress at the moment of examination S1-S2 positive, RRR NIDIA, CTA bilateral Abdomen soft nontender to palpation No edema lower extremities AAO x3; ambulates without help ASSESSMENT/PLAN: 1- HTN-blood pressure controlled today in office Continue current medications He admits of not monitoring his blood pressure He admits of not watching his diet or exercising but he states I feel good 2- HLP-continue statins I advised to watch his diet for healthy choices and start exercising at least walking 150 minutes weekly 3- DM type 2-continue current medications Blood work pending See #2 4- Osteopenia- -on calcium and vitamin D DEXA scan was done in August 2022(see GI note in fall 2022) 5- UC -continue Stelara and with desonide prescribed by his GI he was supposed to have colonoscopy in 2023 based on his GI- note in fall 2022 He has upcoming appointment in November with his GI *-He will follow-up with our PACT clinical pharmacist to check all the medications-he will bring his medications bottle this week to the pharmacy FOLLOW UP: ========= RTC -6 months fu for htn, hlp, dm Today's documentation was made using voice recognition software. This note may contain spelling/grammatical errors secondary to this software. Every effort is made to correct errors, but if mistakes are found they need to be taken in context. UPCOMING APPOINTMENTS: 09/17/2024 09:30 CWM/NO/OPTOMETRY/MERHAR No barriers; Patient understands and agrees to current treatment plan. If pt has any questions, concerns, or changes in current health status he[facility]she will call [facility] Medication Reconciliation: Outpatient: Has the patient been taking medications as documented in the EMLR? YES: The patient has been taking medications as documented in the EMLR. Essential Medication List for Review used to complete this medication reconciliation. INCLUDED IN THIS LIST: Alphabetical list of active outpatient prescriptions dispensed from this [facility] (local) and dispensed from another [place] or [facility] facility (remote) as well as inpatient orders [...] whether with a VA or non-VA provider. JLV Link Data on this list may not be complete. Please check JLV. Allergies/ADRs (Tool #5) FACILITY ALLERGY/ADR -------- [facility] [place] [facility] NO KNOWN ALLERGIES Med Recon NoGlossary (Tool #1) INCLUDED IN THIS LIST: Alphabetical list of active outpatient prescriptions dispensed from this [facility] (local) and dispensed from another [place] or [facility] facility (remote) as well as inpatient orders (local pending and active), local clinic medications, locally documented non-VA medications, and local prescriptions that have or been discontinued in the past 90 days. Non-VA Meds Last Documented On: Mar 10, 2013 NOTE The display of VA prescriptions dispensed from another [place] or [facility] facility (remote) is limited to active outpatient prescription entries matched to National Drug File at the originating site and may not include some items such as investigational drugs, compounds, etc. NOT INCLUDED IN THIS LIST: Medications self-entered by the patient into personal health records (i.e. [employer]) are NOT included in this list. Non-VA medications documented outside this [place], remote inpatient orders (regardless of status) and remote clinic medications are NOT included in this list. The patient and provider must always discuss medications the patient is taking, regardless of where the medication was dispensed or obtained. OUTPT ALOGLIPTIN 12.5MG TAB (Status = Active) TAKE ONE TABLET BY MOUTH ONCE DAILY Rx# [id number] Last Released: 06/21/23 Qty/Days Supply: Rx Expiration Date: 06/07/24 Refills Remainin Indication: FOR TYPE 2 DIABETES MELLITUS OUTPT AMLODIPINE BESYLATE 2.5MG TAB (Status = Active) TAKE ONE TABLET BY MOUTH ONCE DAILY FOR HIGH BLOOD PRESSURE FOR BLOOD PRESSURE/HEART, DO NOT TAKE WITH GRAPEFRUIT JUICE Rx# [id number] Last Released: 09/09/23 Qty/Days Supply: Rx Expiration Date: 05/17/24 Refills Remainin Indication: FOR HIGH BLOOD PRESSURE OUTPT ATORVASTATIN CALCIUM 40MG TAB (Status = Active) TAKE ONE-HALF TABLET BY MOUTH AT BEDTIME FOR HIGH CHOLESTEROL Rx# [id number] Last Released: 07/01/23 Qty/Days Supply: Rx Expiration Date: 12/14/23 Refills Remainin Indication: FOR HIGH CHOLESTEROL OUTPT BUDESONIDE 9MG SA TAB (Status = Active) TAKE ONE TABLET BY MOUTH EVERY MORNING FOR 2 MONTHS Rx# [id number] Last Released: 06/27/23 Qty/Days Supply: Rx Expiration Date: 06/24/24 Refills Remainin Indication: FOR ULCERATIVE COLITIS OUTPT CALCIUM 500MG/VITAMIN D 200 UNT TAB (Status = Active) TAKE 1 TABLET BY MOUTH ONCE DAILY Rx# [id number] Last Released: 11/04/23 Qty/Days Supply: 60/60 Rx Expiration Date: 06/07/24 Refills Remainin OUTPT CHOLECALCIF 50MCG (D3-2,000UNIT) TAB (Status = Active) TAKE ONE TABLET BY MOUTH ONCE DAILY FOR VITAMIN SUPPLEMENTATION Rx# [id number] Last Released: 03/04/23 Qty/Days Supply: 100 Rx Expiration Date: 11/24/23 Refills Remainin Indication: FOR VITAMIN D DEFICIENCY OUTPT CYANOCOBALAMIN 500MCG TAB (Status = Active) TAKE ONE TABLET BY MOUTH ONCE DAILY FOR PREVENTION OF VITAMIN B12 DEFICIENCY Rx# [id number] Last Released: 03/04/23 Qty/Days Supply: 100 Rx Expiration Date: 12/14/23 Refills Remainin Indication: FOR PREVENTION OF VITAMIN B12 DEFICIENCY OUTPT FERROUS SULFATE 325MG TAB (Status = Active) TAKE ONE TABLET BY MOUTH ONCE DAILY TO SUPPLEMENT IRON Rx# [id number] Last Released: 01/28/23 Qty/Days Supply: 100 Rx Expiration Date: 01/16/24 Refills Remainin OUTPT FEXOFENADINE HCL 180MG TAB (Status = Active) TAKE ONE TABLET BY MOUTH ONCE DAILY FOR ALLERGIES Rx# [id number] Last Released: 05/15/23 Qty/Days Supply: Rx Expiration Date: 04/12/24 Refills Remainin Indication: FOR ALLERGIES OUTPT FLUTICASONE PROP 50MCG 120D NASAL INHL (Status = Active) INSTILL 2 SPRAYS INTO EACH NOSTRIL ONCE DAILY FOR ALLERGIC RHINITIS Rx# [id number] Last Released: 06/25/23 Qty/Days Supply: Rx Expiration Date: 12/01/23 Refills Remainin Indication: ALLERGIC RHINITIS OUTPT NUTR SUPL GLUCERNA THER NUTR SHAKE VAN (Status = Active) DRINK 1 CAN BY MOUTH TWICE DAILY STRAWBERRY Rx# [id number] Last Released: 03/07/23 Qty/Days Supply: Rx Expiration Date: 03/02/24 Refills Remainin OUTPT USTEKINUMAB 90MG/ML INJ 1ML SYR (Status = Active) INJECT 90MG (1ML) SUBCUTANEOUSLY EVERY 8 WEEKS Rx# [id number] Last Released: 08/20/23 Qty/Days Supply: Rx Expiration Date: 07/04/24 Refills Remainin SUPPLIES OUTPT ACCU-CHEK GUIDE (GLUCOSE) TEST STRIP (Status = Active) USE 1 STRIP TO TEST BLOOD SUGARS EVERY OTHER DAY Rx# [id number] Last Released: 03/28/23 Qty/Days Supply: 50/90 Rx Expiration Date: 03/28/24 Refills Remainin OUTPT LANCET,SOFTCLIX (Status = Active) USE 1 LANCET DIRECTED EVERY OTHER DAY TO TEST BLOOD SUGAR Rx# [id number] Last Released: 03/28/23 Qty/Days Supply: 100/90 Rx Expiration Date: 03/28/24 Refills Remainin /harvey/ HIPOLITO HECK MD PRIMARY CARE PHYSICIAN Signed: 11/04/2023 09:29 [facility]EC[facility]
--- OUTSIDE RECORDS SUMMARY | 2024-09-10 11:33 | XMS_ITS | Encounter Summary ---
Author Name [facility] [place] [facility] [place] [facility] [place] Address [address] [place] [address] Care Team Providers Care Milk Vendor Name Role Phone FIDENCIO RUSH Primary Care [...] Name Patient's Relationship to Policy Harden AETNA [facility] MEDICARE ADVANTAGE [place] INDIV IDUAL - [place] Oct 21, 2023 [id number] [phone] Thelma GERMAN PATIENT EDUARDO [facility] MEDICARE ADVANTAGE [facility] Jul 22, 2020 [id number] Thelma GERMAN PATIENT MEDICAID MEDICAID [facility] Jul 22, 2012 MEDICAI D [id number] Thelma GERMAN PATIENT Selected Encounter This section includes the information on record at [place] for the Encounter. Date/Time Encounter Type Encounter Description Reason Provider Source Jan 28, 2024 01:00 PM OFFICE O/P EST MOD 30 MIN PRIMARY CARE/MEDICINE ICD-10-CM E78.5 Hyperlipidemia, unspecified STELEA,HIPOLITO F IHE Encounter Template Text not used by VA Assessments - Encounter Diagnoses This section includes the primary and secondary diagnoses documented for the Encounter. Date/Time Primary/Secondary Diagnosis Diagnosis Name Provider Source Jan 28, 2024 01:31 PM PRIMARY Hyperlipidemia, unspecified DELONBLESSINGHIPOLITO Stanford [place] Jan 28, 2024 01:31 PM SECONDARY Essential (primary) hypertension HIPOLITO HECK [place] Jan 28, 2024 01:31 PM SECONDARY Type 2 diabetes mellitus without complications HIPOLITO HECK [place] Jan 28, 2024 01:31 PM SECONDARY Ulcerative colitis, unspecified with other complication DELONBLESSINGHIPOLITO Stanford [place] Plan of Treatment: Future Appointments (+ 6 months) and Future Tests (+/- 45 days) The Plan of Treatment section includes future care activities for the patient from all [place] treatment[facility]. This section includes future appointments and future orders which are active, pending or scheduled. Future Appointments This section includes appointments that were scheduled to occur 6 months from the date of the Encounter, up to a maximum of 20 appointments. The data comes from all [place] treatment facilities. Appointment Date/Time Appointment Type Appointme nt Facility Name Jun 26, 2024 08:30 AM AMBULATORY - MEDICINE [facility] Jul 17, 2024 09:45 AM AMBULATORY - MEDICINE [facility] Lab Results: +/- 30 days of the encounter This section includes the Chemistry and Hematology Lab Results on record with [place] for the patient. Radiology Reports and Pathology Reports are provided separately, in subsequent sections. Lab Results This section contains the Chemistry/Hematology Results that were resulted 30 days before or 30 daysafter the date of the Encounter. Date/Time Source Result Type Result - Unit Interpretation Reference Range Comment Jan 20, 2024 07:49 AM [place] LIPID PANEL FASTING Specimen Type: SERUM No comment entered. Ordering Provider: HIPOLITO HECK Report Released Date/Time: Jan 16, 2024 08:35 AM Reporting Lab: [facility] [address] [facility] [address] Performing Lab: [facility] [address] [facility] [address] CHOLESTEROL 203 mg/dL H TRIGLYCERIDE 198 mg/dL H 0-150 LDL calculated 121 mg/dL 0-129 CHOL/HDL 4.8 HDL CHOLESTEROL 42 mg/dL 40-60 Jan 20, 2024 07:49 AM [place] BASIC METABOLIC PANEL (fasting) Specime n Type: SERUM No comment entered. Ordering Provider: HIPOLITO HECK Report Released Date/Time: Jan 16, 2024 08:35 AM Reporting Lab: [address] [address] Performing Lab: [address] [address] UREA NITROGEN 16 mg/dL 7-25 GLUCOSE 151 mg/dL H 65-100 SODIUM 136 mmol/L 135-145 POTASSIUM 4.2 mmol/L 3.5-5.0 CHLORIDE 104 mmol/L 100-110 CO2 22 meq/L 20-30 CREATININE, Serum 1.32 mg/dL 0.50-1.40 eGFR(CKD-EPI 2020) 57 mL/min L >60 Jan 20, 2024 07:49 AM [place] LIVER FUNCTION Specimen Type: SERUM No comment entered. Ordering Provider: HIPOLITO HECK Report Released Date/Time: Jan 16, 2024 08:35 AM Reporting Lab: [address] [address] Performing Lab: [address] [address] PROTEIN,TOTAL 7.0 g/dL 6.0-8.3 ALBUMIN 3.9 g/dL 3.5-5.0 ALKALINE PHOSPHATASE 78 U/L 40-150 AST 10 U/L 5-34 ALT 11 U/L BILIRUBIN, TOTAL 0.8 mg/dL 0.2-1.2 Jan 20, 2024 07:49 AM [place] HEMOGLOBIN A1C PANEL Specimen Type: BLOOD Comment: Values obtained from A1C measurements can vary. For atypical A1C assays, a reported value of 7.0 could actually be between 6.72 and 7.28 if measured by a reference method. A reported value of 9.0 could actually be between 8.73 and 9.27. Ref: http://www.ngs p.org/CAPdata. asp Ordering Provider: HIPOLITO HECK Report Released Date/Time: Jan 16, 2024 08:35 AM Reporting Lab: [address] [address] Performing Lab: [address] [place] [address] HEMOGLOBIN A1C 6.0 H 4.0-5.6 Jan 20, 2024 07:49 AM [place] TSH Specimen Type: SERUM No comment entered. Ordering Provider: HIPOLITO HECK Report Released Date/Time: Jan 16, 2024 08:35 AM Reporting Lab: [facility] [address] [address] Performing Lab: [facility] [address] [address] TSH 1.97 u[IU]/mL 0.35-5.00 Jan 20, 2024 07:49 AM [place] CBC AND DIFF (AUTO) Specimen Type: BLOOD No comment entered. Ordering Provider: HIPOLITO HECK Report Released Date/Time: Jan 16, 2024 08:35 AM Reporting Lab: [address] [address] Performing Lab: [address] [address] WBC 6.21 10*3/uL 4.50-11.00 RBC 4.27 10*6/uL 4.23-5.66 HGB 13.1 g/dL 12.8-17 HCT 38.7 L 39.2-50.4 MCV 90.6 fL 82-99 MCHC 33.9 g/dL 30.8-35.1 PLT 242 10*3/uL 140-360 RDW-CV 13.1 12.0-16.0 MONO, ABS 0.35 10*3/uL 0.30-1.10 MCH 30.7 pg 26.2-32.6 NEUT % 58.9 43.7-75.8 LYMPH % 30.8 14.0-42.3 MONO % 5.6 5.1-13.7 EOS % 3.9 0.4-6.8 BASO % 0.5 0.1-2.0 NEUT, ABS 3.66 10*3/uL 2.20-7.60 LYMPH, ABS 1.91 10*3/uL 1.00-3.20 EOS, ABS 0.24 10*3/uL 0.03-0.44 BASO, ABS 0.03 10*3/uL 0.01-0.13 IMMATURE GRAN % 0.3 0.0-0.7 IMMATURE GRAN, ABS 0.02 10*3/uL 0.00-0.06 NRBC % 0.0 0.0-0.0 NRBC, ABS 0.00 10*3/uL 0.00-0.00 Vital Signs: All taken on the encounter date This section contains inpatient and outpatient Vital Signs collected on the date of the Encounter. Date/Time Temperature Pulse Blood Pressure Respiratory Rate SP02 Pain Height Weight Body Mass Index Source Jan 28, 2024 12:59 PM 70 117/80 98 174 28 [facility] Social History: Smoking Status (Most current) and Tobacco Use (All prior to encounter date) This section includes the most current, and the historical, smoking and tobacco- related health factors from the [place] facility where the Encounter took place. Current Smoking Status This section includes the most current smoking, or tobacco-related health factor, from the [place] facility where the Encounter took place. Date/Time Current Smoking Status Comment Josie dwyer Nov 04, 2023 08:30 AM VA-TOBACCO QUIT 15 YRS OR MORE [place] Tobacco Use History This section includes a history of the smoking, or tobacco-related health factors, that were collected on or before the date of the Encounter. The data comes from the [place] facility where the Encounter took place. Date/Time Smoking Status/Tobacco Use Comment F acyesenia Nov 04, 2023 08:30 AM VA-TOBACCO QUIT 15 YRS OR MORE [place] November 30, 2022 10:00 AM VA-TOBACCO FORMER USER [place] November 30, 2022 10:00 AM VA-TOBACCO QUIT 15 YRS OR MORE [place] Aug 24, 2021 01:00 PM VA-TOBACCO FORMER USER [place] Aug 24, 2021 01:00 PM VA-TOBACCO QUIT 15 YRS OR MORE [place] Aug 23, 2020 10:00 AM VA-TOBACCO FORMER USER [place] Aug 23, 2020 10:00 AM VA-TOBACCO QUIT 15 YRS OR MORE [place] Feb 02, 2019 10:41 AM VA-TOBACCO FORMER USER [place] Feb 02, 2019 10:41 AM VA-TOBACCO QUIT 15 YRS OR MORE [place] Jun 16, 2018 02:13 PM VA-TOBACCO FORMER USER [place] Jun 16, 2018 02:13 PM VA-TOBACCO QUIT 15 YRS OR MORE [place] Jan 23, 2017 09:31 AM QUIT TOBACCO USE > 7 YEARS AGO reports quitting 25/30 years ago [place] Jan 19, 2016 01:51 PM QUIT TOBACCO USE > 7 YEARS AGO [place] Apr 14, 2010 08:37 AM QUIT TOBACCO USE > 7 YEARS AGO stopped tobacco 30 years ago [place] Advance Directives: All historical and current Section Date Range: From patient's date of to the date document was created. This section includes ALL of a patient's completed or amended VA Advance and Rescinded Directives. The entries below indicate that a directive exists for the patient, but an actual copy is not included with this document. The data comes from all [place] facilities. Date Advance Directives Provider Source November 19, 2017 ADVANCE DIRECTIVE CRYSTAL BYERS IELD Encounter Notes: All associated encounter notes This section contains the clinical notes associated to the Encounter. Date/Time Encounter Note(s) Provider Source Jan 28, 2024 01:07 PM PHYSICIAN NOTE: LOCAL TITLE: MD NOTE STANDARD TITLE: PHYSICIAN NOTE DATE OF NOTE: JAN 28, 2024@13:07 ENTRY DATE: JAN 28, 2024@13:07:53 AUTHOR: HIPOLITO HECK EXP COSIGNER: URGENCY: STATUS: COMPLETED HISTORY OF PRESENT ILLNESS: DAWIT GERMAN, is a 73 yo MALE , who presents at the [facility] for follow up visit for chronic medical conditions. Non- VA providers GI- Dr Bradshaw Urology- [facility] Active problems - Computerized Problem List is the source for the following: -Essential hypertension -Hyperlipidemia -Diabetes mellitus type 2 -Ulcerative colitis -Osteopenia The following VA and Non-VA meds were [...] Sig: TAKE ONE TABLET BY MOUTH Refills: 0 Last:11-26-23 ONCE DAILY Expr:06-07-24 3) AMLODIPINE BESYLATE 2.5MG TAB Qty: 90 ACTIVE Issu:05-17-23 for 90 days Sig: TAKE ONE TABLET BY Refills: 0 Last:09-04-23 MOUTH ONCE DAILY FOR HIGH BLOOD Expr:05-17-24 PRESSURE FOR BLOOD PRESSURE/HEART, DO NOT TAKE WITH GRAPEFRUIT JUICE 4) ATORVASTATIN CALCIUM 80MG TAB Qty: 45 ACTIVE Issu:11-21-23 for 90 days Sig: TAKE ONE-HALF TABLET Refills: 3 Last:11-21-23 BY MOUTH AT BEDTIME FOR HIGH Expr:11-21-24 CHOLESTEROL WILL REPLACE THE 20 MG BY MOUTH AT BEDTIME 5) BUDESONIDE 9MG SA TAB Qty: 30 for 30 ACTIVE Issu:06-24-23 days Sig: TAKE ONE TABLET BY MOUTH Refills: 1 Last:06-26-23 EVERY MORNING FOR 2 MONTHS Expr:06-24-24 6) CALCIUM 500MG/VITAMIN D 200 UNT TAB ACTIVE Issu:06-07-23 Qty: 60 for 60 days Sig: TAKE 1 Refills: 2 Last:11-04-23 TABLET BY MOUTH ONCE DAILY Expr:06-07-24 7) FEXOFENADINE HCL 180MG TAB Qty: 90 for ACTIVE Issu:04-12-23 90 days Sig: TAKE ONE TABLET BY MOUTH Refills: 2 Last:05-22-23 ONCE DAILY FOR ALLERGIES Expr:04-12-24 8) LANCET,SOFTCLIX Qty: 100 for 90 days ACTIVE Issu:03-28-23 Sig: USE 1 LANCET DIRECTED EVERY Refills: 3 Last:03-28-23 OTHER DAY TO TEST BLOOD SUGAR Expr:03-28-24 9) NUTR SUPL GLUCERNA THER NUTR SHAKE VAN ACTIVE Issu:03-02-23 Qty: 72 for 30 days Sig: DRINK 1 CAN Refills: 3 Last:03-06-23 BY MOUTH TWICE DAILY STRAWBERRY Expr:03-02-24 10) USTEKINUMAB 90MG/ML INJ 1ML SYR Qty: 1 ACTIVE Issu:07-04-23 for 56 days Sig: INJECT 90MG (1ML) Refills: 2 Last:11-26-23 SUBCUTANEOUSLY EVERY 8 WEEKS Expr:07-04-24 ALLERGIES: ========= [facility] HISTORY: CBC, TSH, LFTsnormal limits Glucose level 151 with hemoglobin A1c 6 Triglycerides 198 with total cholesterol 203 and LDL 121 PMH: Essential hypertension, hypercholesterolemia, diabetes mellitus type 2, ulcerative colitis, vitamin D deficiency, depression, nephrolithiasis, SURGICAL HISTORY: Bilateral cataract surgery FAMILY HISTORY: mother- father- SOCIAL HISTORY: single with no children Smoking denies- quit more than 30 years ago Drugs denies Alcohol denies HISTORY: PERIOD OF SERVICE - [employer] FROM Jul TO Jul COMBAT SERVICE INDICATED: No REVIEW OF SYSTEMS: No fever, chills, No chest pain shortness of breath at rest or with exertion No cough or wheezing No abdominal pain nausea or vomiting; no diarrhea No headaches or dizziness PHYSICAL EXAMINATION: WD/overweight [place] seems to be in NAD S1-S2 positive, RRR NIDIA, CTA bilateral Abdomen soft nontender to palpation No edema lower extremities AAO x3; ambulates without help ASSESSMENT/PLAN: -Essential hypertension-blood pressure controlled today in office Continue current medications Advised to keep low-salt diet and exercise as tolerated he admits of not exercising or watching his diet He admits of not monitoring blood pressure at home and he is not interesting to start doing it -Hyperlipidemia-not at goal with worsening triglycerides and LDL Increase atorvastatin to 80 mg p.o. nightly Advised to keep healthy diet and exercise as tolerated We will repeat blood work with next appointment the end of April -Diabetes mellitus type 2-continue alogliptin Advised to decrease carbohydrates in diet and start exercising He admits of not checking his glucose level at home and he is not interesting in starting doing it -Ulcerative colitis -managed by his GI He had last colonoscopy done on December 02, 2023Next colonoscopy will be per GI recommendation -Osteopenia-continue calcium vitamin D supplements-monitor by his GI I advised him to start walking at least 150 minutes daily -The [place] states he does not take fluticasone, Halie B12 and vitamin D supplements and he would like the medications to be discontinued from his list FOLLOW UP: ========= RTC - 6 months follow up for htn, hlp, osteopenia, dm with fasting labs Today's documentation was made using voice recognition software. This note may contain spelling/grammatical errors secondary to this software. Every effort is made to correct errors, but if mistakes are found they need to be taken in context. UPCOMING APPOINTMENTS: 05/05/2024 09:00 CWM/SO/PACT EIGHT 09/17/2024 09:30 CWM/NO/OPTOMETRY/MERHAR No barriers; Patient understands [...] of active outpatient prescriptions dispensed from this [place] (local) and dispensed from another [place] or [place] facility (remote) as well as [...] FACILITY ALLERGY/ADR -------- [facility] [place] [facility] NO KNOWN ALLERGIES Med Recon NoGlossary (Tool #1) INCLUDED IN THIS LIST: Alphabetical list of active outpatient prescriptions dispensed from this [place] (local) and dispensed from another [place] or [facility] facility (remote) as well as inpatient orders (local pending and active), local clinic medications, locally documented non-VA medications, and local prescriptions that have or been discontinued in the past 90 days. Non-VA Meds Last Documented On: Mar 10, 2013 NOTE The display of VA prescriptions dispensed from another [place] or [facility] facility (remote) is limited to active outpatient prescription entries matched to National Drug File at the originating site and may not include some items such as investigational drugs, compounds, etc. NOT INCLUDED IN THIS LIST: Medications self-entered by the patient into personal health records (i.e. [employer]) are NOT included in this list. Non-VA medications documented outside this [place], remote inpatient orders (regardless of status) and remote clinic medications are NOT included in this list. The patient and provider must always discuss medications the patient is taking, regardless of where the medication was dispensed or obtained. OUTPT ALOGLIPTIN 12.5MG TAB (Status = Active) TAKE ONE TABLET BY MOUTH ONCE DAILY Rx# [id number] Last Released: 11/26/23 Qty/Days Supply: Rx Expiration Date: 06/07/24 Refills Remainin Indication: FOR TYPE 2 DIABETES MELLITUS OUTPT AMLODIPINE BESYLATE 2.5MG TAB (Status = Active) TAKE ONE TABLET BY MOUTH ONCE DAILY FOR HIGH BLOOD PRESSURE FOR BLOOD PRESSURE/HEART, DO NOT TAKE WITH GRAPEFRUIT JUICE Rx# [id number] Last Released: 09/09/23 Qty/Days Supply: 90 Rx Expiration Date: 05/17/24 Refills Remainin Indication: FOR HIGH BLOOD PRESSURE OUTPT ATORVASTATIN CALCIUM 40MG TAB (Status = Discontinued) TAKE ONE-HALF TABLET BY MOUTH AT BEDTIME FOR HIGH CHOLESTEROL Rx# [id number] Last Released: 07/01/23 Qty/Days Supply: 45 Rx Expiration Date: 12/14/23 Refills Remainin Indication: FOR HIGH CHOLESTEROL OUTPT ATORVASTATIN CALCIUM 80MG TAB (Status = Active) TAKE ONE-HALF TABLET BY MOUTH AT BEDTIME FOR HIGH CHOLESTEROL WILL REPLACE THE 20 MG BY MOUTH AT BEDTIME Rx# [id number] Last Released: 11/25/23 Qty/Days Supply: 45 Rx Expiration Date: 11/21/24 Refills Remainin Indication: FOR HIGH CHOLESTEROL OUTPT BUDESONIDE 9MG SA TAB (Status = Active) TAKE ONE TABLET BY MOUTH EVERY MORNING FOR 2 MONTHS Rx# [id number] Last Released: 06/27/23 Qty/Days Supply: Rx Expiration Date: 06/24/24 Refills Remainin Indication: FOR ULCERATIVE COLITIS OUTPT CALCIUM 500MG/VITAMIN D 200 UNT TAB (Status = Active) TAKE 1 TABLET BY MOUTH ONCE DAILY Rx# [id number] Last Released: 11/04/23 Qty/Days Supply: 60/60 Rx Expiration Date: 06/07/24 Refills Remainin OUTPT CHOLECALCIF 50MCG (D3-2,000UNIT) TAB (Status = ) TAKE ONE TABLET BY MOUTH ONCE DAILY FOR VITAMIN SUPPLEMENTATION Rx# [id number] Last Released: 03/04/23 Qty/Days Supply: 100/90 Rx Expiration Date: 11/24/23 Refills Remainin Indication: FOR VITAMIN D DEFICIENCY OUTPT CYANOCOBALAMIN 500MCG TAB (Status = ) TAKE ONE TABLET BY MOUTH ONCE DAILY FOR PREVENTION OF VITAMIN B12 DEFICIENCY Rx# [id number] Last Released: 03/04/23 Qty/Days Supply: Rx Expiration Date: 12/14/23 Refills Remainin Indication: FOR PREVENTION OF VITAMIN B12 DEFICIENCY OUTPT FERROUS SULFATE 325MG TAB (Status = ) TAKE ONE TABLET BY MOUTH ONCE DAILY TO SUPPLEMENT IRON Rx# [id number] Last Released: 01/28/23 Qty/Days Supply: Rx Expiration Date: 01/16/24 Refills Remainin OUTPT FEXOFENADINE HCL 180MG TAB (Status = Active) TAKE ONE TABLET BY MOUTH ONCE DAILY FOR ALLERGIES Rx# [id number] Last Released: 05/15/23 Qty/Days Supply: Rx Expiration Date: 04/12/24 Refills Remainin Indication: FOR ALLERGIES OUTPT FLUTICASONE PROP 50MCG 120D NASAL INHL (Status = ) INSTILL 2 SPRAYS INTO EACH NOSTRIL ONCE DAILY FOR ALLERGIC RHINITIS Rx# [id number] Last Released: 11/26/23 Qty/Days Supply: Rx Expiration Date: 12/01/23 Refills Remainin Indication: ALLERGIC RHINITIS OUTPT NUTR SUPL GLUCERNA THER NUTR SHAKE VAN (Status = Active) DRINK 1 CAN BY MOUTH TWICE DAILY STRAWBERRY Rx# [id number] Last Released: 03/07/23 Qty/Days Supply: Rx Expiration Date: 03/02/24 Refills Remainin OUTPT USTEKINUMAB 90MG/ML INJ 1ML SYR (Status = Active) INJECT 90MG (1ML) SUBCUTANEOUSLY EVERY 8 WEEKS Rx# [id number] Last Released: 11/27/23 Qty/Days Supply: Rx Expiration Date: 07/04/24 Refills Remainin SUPPLIES OUTPT ACCU-CHEK GUIDE (GLUCOSE) TEST STRIP (Status = Active) USE 1 STRIP TO TEST BLOOD SUGARS EVERY OTHER DAY Rx# [id number] Last Released: 03/28/23 Qty/Days Supply: 50/90 Rx Expiration Date: 03/28/24 Refills Remainin OUTPT LANCET,SOFTCLIX (Status = Active) USE 1 LANCET DIRECTED EVERY OTHER DAY TO TEST BLOOD SUGAR Rx# [id number] Last Released: 03/28/23 Qty/Days Supply: 100/90 Rx Expiration Date: 03/28/24 Refills Remainin Diabetes: Kidney Health Evaluation: Last eGFR: EGFR Collection DT Specimen Test Name Result Units Ref Range 01/20/2024 07:49 SERUM eGFR(CKD-EPI 2020 57 L mL/min Ref: >=60 Last uACR: No uACR found within the past year uACR (Urine Albumin-Creatinine Ratio) Quantitative urine creatinine and quantitative urine albumin lab tests were ordered. /harvey/ HIPOLITO HECK MD PRIMARY CARE PHYSICIAN Signed: 01/28/2024 13:31 HIPOLITO HECK [facility] Jan 28, 2024 12:59 PM PREVENTIVE MEDICIN E NURSING NOTE: LOCAL TITLE: CLINICAL REMINDERS/NURSING STANDARD TITLE: PREVENTIVE MEDICINE NURSING NOTE DATE OF NOTE: JAN 28, 2024@12:59 ENTRY DATE: JAN 28, 2024@12:59:44 AUTHOR: ESCOBAR LIVE COSIGNER: URGENCY: STATUS: COMPLETED Homelessness/Food Insecurity Screen: In the past 2 months, have you been living in stable housing that you own, rent, or stay in as part of a household? Yes - Living in stable housing. Are you worried or concerned that in the next 2 months you may NOT have stable housing that you own, rent, or stay in as part of a household? No - Not worried about housing near future [facility] [place] reports the following: Within the past 12 months, you worried whether your food would run out before you got money to buy more. Never true Within the past 12 months, the food you bought just didn't last and you didn't have money to get more. Never true COVID-19 Immunization: Refused Moderna Monovalent COVID-19 vaccine Immunization: COVID-19 (MODERNA), MRNA, LNP-S, PF, 50 MCG/0.5 ML (AGES 12+ YEARS) Refusal Reason: PATIENT DECISION Patient refuses all immunization(s) in the COVID-19 group Date Documented: 01/28/24 13:00 PAVE Foot Check: A complete foot check was completed at this encounter. VISUAL INSPECTION: Includes inspection for skin breaks, deformity, erythema, trauma, pallor on elevation, dependent rubor, nail deformities, extensive callus and pitting edema. Visual exam results: Normal PEDAL PULSES: Includes palpation of dorsalis and posterior tibial pulses and signs/symptoms of vascular compromise like pain, pallor, parasthesia or paralysis. Present (even if diminished) SENSORY CHECK: Includes 10 gram Monofilament ([place]-Melva) test of sensation. Intact (Greater than or equal to 80% of sites checked) Abnormal (Less than 80% of sites checked): Intact LOW-RISK: LOW RISK INFORMATION PROVIDED: 1. Advised patient not to walk barefoot. 2. Explained the importance of daily foot checks for changes. 3. Stressed the importance of daily foot hygiene, including bathing and complete drying. /harvey/ ESCOBAR LIVE LPN Licensed Practical Nurse Signed: 01/28/2024 13:00 ESCOBAR LIVE
--- OUTSIDE RECORDS SUMMARY | 2024-09-10 11:33 | XMS_ITS | Continuity of Care Document ---
Author Name [facility] Organization [facility] Care Team Providers Care Recording Studio Set Up Worker Name Role Phone [facility] Unavailable Unavailable Problems Combined list of problems from Department of Defense and Veterans Affairs facilities. It does not include entries that were removed or entered in error. Problem Status Onset Date Problem Type Date of Resolution Comments Source PEDOPHILIA Inactive 969 Condition 03/12/2012 Mar 12, 2012 Entered By: ASHLEY SPEARS Comment: Reports no current urges or activity MOBILE Allergic Rhinitis (SCT [id number]) Active Condition [place] Anaemia Active Condition Jun 19 Entered By: FIDENCIO RUSH Comment: 01/20/24 HGB 11.4Dec 2023 Entered By: FIDENCIO RUSH Comment: 06/22/24 HGB 11.4 MOBILE CKD stage 3 Active Condition Jun 19, 2024 Entered By: FIDENCIO RUSH Comment: 01/20/24 GFR 57Dec 2023 Entered By: FIDENCIO RUSH Comment: 06/22/24 GFR 53 [facility] Depression Active Condition MOBILE Diabetes mellitus type 2 Active Condition Aug 17, 2016 Entered By: BARB DE LOS SANTOS Comment: Diagnosed via HbA1c in July Entered By: FIDENCIO RUSH Comment: 01/20/24 A1c 6.0Dec 2023 Entered By: FIDENCIO RUSH Comment: 06/22/24 A1c 5.8 [place] [facility] [place] [facility] Family medical history Active Condition Apr 14, 2010 Entered By: NIKO GARRIDO Comment: CAD MOBILE History of surgery Active Condition Jun 19, 2024 Entered By: FIDENCIO RUSH Comment: bilateral cataract extractionJun 19, 2024 Entered By: FIDENCIO RUSH Comment: excision BCC 2009Jun 19, 2024 Entered By: FIDENCIO URSH Comment: hemorrhoidectomy MOBILE Hypertension (SNOMED CT 13632039) Active Condition MOBILE Mild cognitive impairment Active Condition Jun 30, 2024 Entered By: FIDENCIO RUSH Comment: lives alone, independent with ADL, IADL [facility] [place] [facility] Mixed hyperlipidaemia Active Condition [facility] [place] Pes planus Active Condition MOBILE Screening for malignant neoplasm of colon done Active Condition Jan 01, 2012 Entered By: NIKO GARRIDO Comment: 11-23-11: Polypectomy x 2: Tubular AdenomaJan 01, 2012 Entered By: NIKO GARRIDO Comment: Repeat Colonoscopy 5 yearsFe2022 Entered By: JAKY ISSA Comment: Sigmoidoscopy 2023 Entered By: FIDENCIO RUSH Comment: LAST COLONOSCOPY 12/02/23 ( #9 polyps) at [facility] - repeat 2026 MOBILE Ulcerative colitis Active Condition Jun 30, 2024 Entered By: FIDENCIO RUSH Comment: followed by GI Dr. Begum MOBILE 1979: Left middle Finger Avulsion Inactive Condition 08/01/2021 [place] 2001: Colonoscopy: Normal Inactive Condition 08/01/2021 MOBILE 12-27-08:Excision Nodular Basal Carcinoma of Back Inactive Condition 08/01/2021 [facility] IELD Bereavement Inactive Condition 08/01/2021 Mar 03, 2012 Entered By: NIKO GARRIDO Comment: Turbo Generator Oiler of 35 yrs 03-02-12 MOBILE Calculus of Kidney Inactive Condition 06/19/2024 MOBILE Fungal dermatitis Inactive Condition 06/19/2024 MOBILE Gross Hematuria Inactive Condition 08/01/2021 [facility] Hypokalaemia Inactive Condition 06/19/2024 [facility] Obesity Inactive Condition 08/01/2021 [facility] Other Malaise and Fatigue Inactive Condition 08/01/2021 MOBILE Other Seborrheic Keratosis Inactive Condition 06/19/2024 MOBILE Prediabetes Inactive Condition 08/17/2016 [facility] Proteinuria * (ICD-9-CM 791.0) Inactive Condition 06/19/2024 [facility] ELD SRB: Cristel PAZ: SRB: [id number] Inactive Condition 08/01/2021 MOBILE Diagnosis: ICD-10-CM G31.84 Mild cognitive impairment of uncertain or unknown etiology Active Diagnosis [facility] ELD Diagnosis: ICD-10-CM Z04.89 Encounter for examination and observation for oth reasons Active Diagnosis [facility] [place] [facility] Diagnosis: ICD-10-CM E78.5 Hyperlipidemia, unspecified Active Diagnosis MOBILE Diagnosis: ICD-10-CM T14.8XXA Other injury of unspecified body region, initial encounter Active Diagnosis MOBILE Diagnosis: ICD-10-CM Z91.81 History of falling Active Diagnosis MOBILE Diagnosis: ICD-10-CM E11.9 Type 2 diabetes mellitus without complications Active Diagnosis MOBILE Diagnosis: ICD-10-CM I10 Essential (primary) hypertension Active Diagnosis MOBILE Diagnosis: ICD-10-CM R05.9 Cough, unspecified Active Diagnosis MOBILE Diagnosis: ICD-10-CM Z46.0 Encounter for fit/adjst of spectacles and contact lenses Active Diagnosis [facility] [place] [facility] Diagnosis: ICD-10-CM Z23 Encounter for immunization Active Diagnosis MOBILE Medications Combined list of outpatient medications from Department of Defense and Veterans Affairs facilities.Medications provided include 1) outpatient medications from the last 15 months, and 2) patient-reported medications. Medication Details Route Status Patient Instructions Prescription Expires Prescription Number Last Dispense Date Ordering Provider Order Date Order Qty Source ALOGLIPTIN 12.5MG TAB TAKE ONE TABLET BY MOUTH ONCE DAILY ORAL DISCONT INUED BY PROVIDE R 06/07/2024 [id number] TIFFANY HECK RMDAWOOD F [address] [place] [address] IELD AMLODIPINE BESYLATE 2.5MG TAB TAKE ONE TABLET BY MOUTH ONCE DAILY FOR BLOOD PRESSURE /HEART, DO NOT TAKE WITH GRAPEFRU IT JUICE ORAL ACTIVE 06/27/2025 [id number] Pineda RUSH 2023 90 [facility] IELD AMLODIPINE BESYLATE 2.5MG TAB TAKE ONE TABLET BY MOUTH ONCE DAILY FOR BLOOD PRESSURE /HEART, DO NOT TAKE WITH GRAPEFRU IT JUICE ORAL DISCONT INUED 01/28/2025 [id number] TIFFANY HECK RMEN F 2023 90 [facility] IELD AMLODIPINE BESYLATE 2.5MG TAB TAKE ONE TABLET BY MOUTH ONCE DAILY FOR HIGH BLOOD PRESSURE FOR BLOOD PRESSURE /HEART, DO NOT TAKE WITH GRAPEFRU IT JUICE ORAL DISCONT INUED 05/17/2024 [id number] TIFFANY HECK F 2022 90 [place] ATORVASTATI N CA 40MG TAB TAKE ONE-HALF TABLET BY MOUTH AT BEDTIME FOR HIGH CHOLESTE ROL ORAL DISCONT INUED (EDIT) 12/14/2023 [id number] TIFFANY HECK F 2022 45 [place] ATORVASTATI N CA 80MG TAB TAKE ONE TABLET BY MOUTH AT BEDTIME FOR HIGH CHOLESTE ROL ORAL ACTIVE 01/28/2025 [id number] TIFFANY HECK F 2023 90 [place] ATORVASTATI N CA 80MG TAB TAKE ONE-HALF TABLET BY MOUTH AT BEDTIME FOR HIGH CHOLESTE ROL WILL REPLACE THE 20 MG BY MOUTH AT BEDTIME ORAL DISCONT INUED (EDIT) 11/21/2024 [id number] TIFFANY HECK F 2023 45 [place] BUDESONIDE 9MG TAB,SA TAKE ONE TABLET BY MOUTH EVERY MORNING FOR 2 MONTHS ORAL 06/24/2024 [id number] OTTO BEGUMIA 2022 30 [facility] CALCIUM 500MG/VITAM IN D 200UNT TAB TAKE 1 TABLET BY MOUTH ONCE DAILY ORAL ACTIVE 06/27/2025 [id number] Pineda RUSH 2023 90 [place] CALCIUM 500MG/VITAM IN D 200UNT TAB TAKE 1 TABLET BY MOUTH ONCE DAILY ORAL DISCONT INUED 06/07/2024 [id number] OTTO BEGUMIA 2022 60 [place] FLUTICASONE PROPIONATE 50MCG/SPRAY SOLN,NASAL, 16GM INSTILL 2 SPRAYS INTO EACH NOSTRIL ONCE DAILY FOR ALLERGIC RHINITIS NASAL DISCONT INUED BY PROVIDE R 12/01/2023 [id number] TIFFANY HECK F 2022 3 [place] GLUCERNA THERAPEUTIC NUTRITION SHAKE LIQUID STRAWBERRY DRINK 1 CAN BY MOUTH TWICE DAILY FOR NUTRITIO NAL SUPPLEME NTATION ORAL ACTIVE 04/25/2025 [id number] TIFFANY HECKEN F 2023 72 [place] SITAGLIPTIN (EQV-ZITUVI O) 100MG TAB TAKE ONE TABLET BY MOUTH ONCE DAILY THIS REPLACES ALOGLIPT IN ORAL ACTIVE 01/31/2025 [id number] KRISTINA LOPEZ 2023 90 [facility] USTEKINUMAB 90MG/ML INJ,SYR,1ML INJECT 90MG (1ML) SUBCUTAN EOUSLY EVERY 8 WEEKS SUBCUT ANEOUS ACTIVE 07/22/2025 [id number] 5 OTTO BEGUM BI 2024 1 [place] USTEKINUMAB 90MG/ML INJ,SYR,1ML INJECT 90MG (1ML) SUBCUTAN EOUSLY EVERY 8 WEEKS SUBCUT ANEOUS DISCONT INUED 06/27/2025 [id number] 4 Pineda RUSH 2023 1 [place] USTEKINUMAB 90MG/ML INJ,SYR,1ML INJECT 90MG (1ML) SUBCUTAN EOUSLY EVERY 8 WEEKS SUBCUT ANEOUS DISCONT INUED 07/04/2024 [id number] SHYOTTO BI 2023 1 [place] USTEKINUMAB 90MG/ML INJ,SYR,1ML INJECT 90MG (1ML) SUBCUTAN EOUSLY EVERY 8 WEEKS SUBCUT ANEOUS DISCONT INUED 11/22/2023 [id number] ERIOTTO Jnuior BI 2022 1 [facility] [employer] [facility] Allergies, Adverse Reactions, Alerts Combined list of allergies from Department of Defense and Veterans Affairs facilities. It does not include entries that were removed or entered in error. Substance Category Reaction Severity Reaction type Status Date Reported Comments Source METFORMIN Propensity to adverse reactions to drug (finding) active 1 [facility] Immunizations Combined list of available immunizations from the Department of Defense and Veterans Affairs facilities. Immunization Series Date Given Administered By Site Reaction Lot Number CVX Code Drug Behavioral Health Care Coordinator Status Comments Source INFLUENZA, UNSPECIFIED FORMULATION 2023 88 complet ed [facility] provided vaccine [facility] INFLUENZA, UNSPECIFIED FORMULATION 2023 88 complet ed [place] [facility] [place] [facility] COVID-19 (MODERNA), MRNA, LNP-S, PF, 50 MCG/0.5 ML (AGES 12+ YEARS) 1 2022 RAFAEL STILES RIGHT DELTO ID [id number] 312 complet ed [facility] IELD INFLUENZA, HIGH-DOSE, QUADRIVALENT 2022 ESCOBAR LIVE LEFT DELTO ID [id number] 197 complet ed [facility] IELD COVID-19 (MODERNA), MRNA, LNP-S, BIVALENT BOOSTER, PF, 50 MCG/0.5 ML OR 25MCG/0.25 ML DOSE 5 2022 ALBINA MARTINEZ RIGHT DELTO ID [id number] 229 complet ed [facility] IELD INFLUENZA, INJECTABLE, QUADRIVALENT, PRESERVATIVE FREE 2022 ARSH PARRISH LEFT DELTO ID [id number] 150 complet ed [facility] IELD COVID-19 (MODERNA), MRNA, LNP-S, PF, 100 MCG/0.5ML DOSE OR 50 MCG/0.25ML DOSE 3 2021 207 complet ed MOD; [id number]; 2 [facility] IELD COVID-19 (MODERNA), MRNA, LNP-S, PF, 100 MCG OR 50 MCG DOSE 3 2021 207 complet ed MOD; [id number]; 2 [facility] IELD INFLUENZA VACCINE, QUADRIVALENT, ADJUVANTED 2020 205 complet ed [place] TDAP 2020 115 complet ed [facility] IELD COVID-19 (MODERNA), MRNA, LNP-S, PF, 100 MCG/0.5 ML DOSE 2 2020 207 complet ed MOD; [id number]; 1 [facility] IELD COVID-19 (MODERNA), MRNA, LNP-S, PF, 100 MCG/0.5 ML DOSE 1 2020 207 complet ed MOD; [id number]; 1 [place] INFLUENZA, SEASONAL, INJECTABLE 2018 141 complet ed [facility] [place] [facility] INFLUENZA, INJECTABLE, QUADRIVALENT 2017 158 complet ed Site: Right Deltoid [place] ZOSTER RECOMBINANT 2 2017 187 complet ed [place] ZOSTER RECOMBINANT 1 2017 187 complet ed [place] INFLUENZA, SEASONAL, INJECTABLE 2016 141 complet ed Site: Left Deltoid [place] PNEUMOCOCCAL POLYSACCHARID E PPV23 2016 33 complet ed [place] FLU,3 YRS (HISTORICAL) 2016 88 complet ed Site: Left Deltoid [place] PNEUMOCOCCAL CONJUGATE PCV 13 2016 133 complet ed [place] FLU,3 YRS (HISTORICAL) 2014 88 complet ed Site: Left Deltoid [place] ZOSTER LIVE 2012 SIRISHA GODWIN 121 complet ed [place] FLU,3 YRS (HISTORICAL) 2011 88 complet ed Site: Left Deltoid [place] DTAP, UNSPECIFIED FORMULATION 2010 107 complet ed Site: Right Deltoid [place] FLU,3 YRS (HISTORICAL) 2010 88 complet ed Site: Left Deltoid [place] Results Combined list of recent chemistry, hematology and other laboratory results from Department of Defense and Veterans Affairs, ranging from 15 months to all on record, depending upon the facility. Order Name Results Value Reference Range Date Interpretation Specimen Comments Source HEMOGLOBI N A1C PANEL HEMOGLOBIN A1C/HEMOGLO BIN.TOTAL IN BLOOD BY HPLC 5.8 4.0 - 5.6 06/22 H Specimen Type: BLOOD Comment: Values obtained from A1C measurement s can vary. For atypical A1C assays, a reported value of 7.0 could actually be between 6.72 and 7.28 if measured by a reference method. A reported value of 9.0 could actually be between 8.73 and 9.27. Ref: [email or web address]://[email or web address] ngsp.org/[place] Pdata.asp Ordering Provider: YUMIKO HECK Report Released Date/Time: Mar 30, 2024 07:54 AM Reporting Lab: [facility] [address] [address] Performing Lab: [facility] [address] [address] [address] [place] TSH THYROTROPIN [UNITS/VOLU ME] IN SERUM OR PLASMA 1.83 u[IU]/ mL 0.35 - 5.00 06/22 Specimen Type: SERUM No comment entered. Ordering Provider: YUMIKO HECK Report Released Date/Time: Mar 30, 2024 07:54 AM Reporting Lab: [facility] [address] [address] Performing Lab: [facility] [address] [address] [address] [place] LIPID PANEL FASTING CHOLESTEROL [MASS/VOLUM E] IN SERUM OR PLASMA 161 mg/dL 06/22 Specimen Type: SERUM No comment entered. Ordering Provider: YUMIKO HECK Report Released Date/Time: Mar 30, 2024 07:54 AM Reporting Lab: [facility] [address] [address] Performing Lab: [facility] [address]ITALRR[facility]ITALN [facility]ENUSE[address] [address] [place] LIPID PANEL FASTING TRIGLYCERID E [MASS/VOLUM E] IN SERUM OR PLASMA 74 mg/dL 0 - 150 06/22 Specimen Type: SERUM No comment entered. Ordering Provider: YUMIKO HECK Report Released Date/Time: Mar 30, 2024 07:54 AM Reporting Lab: [facility]ENUSE[address] [address] Performing Lab: [facility]ITALRR[facility]ITALN [facility]ENUSE[address] [address] [place] LIPID PANEL FASTING CHOLESTEROL IN LDL [MASS/VOLUM E] IN SERUM OR PLASMA BY CALCULATION 101 mg/dL 0 - 129 06/22 Specimen Type: SERUM No comment entered. Ordering Provider: YUMIKO HECK Report Released Date/Time: Mar 30, 2024 07:54 AM Reporting Lab: [facility]ENUSE[address] [address] Performing Lab: [facility] [address]RL W[facility]N [facility]EN[facility]ETS [address] [address] [place] LIPID PANEL FASTING CHOLESTEROL .TOTAL/CHOL ESTEROL IN HDL [MASS RATIO] IN SERUM OR PLASMA 3.6 06/22 Specimen Type: SERUM No comment entered. Ordering Provider: YUMIKO HECK Report Released Date/Time: Mar 30, 2024 07:54 AM Reporting Lab: [facility] [address] [address] Performing Lab: [facility] [address] [address] [place] LIPID PANEL FASTING CHOLESTEROL IN HDL [MASS/VOLUM E] IN SERUM OR PLASMA 45 mg/dL 40 - 60 06/22 Specimen Type: SERUM No comment entered. Ordering Provider: YUMIKO HECK Report Released Date/Time: Mar 30, 2024 07:54 AM Reporting Lab: [facility] [address] [address] Performing Lab: [facility]EN[facility] [address] [address] [place] LIVER FUNCTION PROTEIN [MASS/VOLUM E] IN SERUM OR PLASMA 6.6 g/dL 6.0 - 8.3 06/22 Specimen Type: SERUM No comment entered. Ordering Provider: YUMIKO HECK Report Released Date/Time: Mar 30, 2024 07:54 AM Reporting Lab: [facility] [address] [address] Performing Lab: [facility] [address] [address] [address] [place] LIVER FUNCTION ALBUMIN [MASS/VOLUM E] IN SERUM OR PLASMA 3.6 g/dL 3.5 - 5.0 06/22 Specimen Type: SERUM No comment entered. Ordering Provider: YUMIKO HECK Report Released Date/Time: Mar 30, 2024 07:54 AM Reporting Lab: [facility] [address] [address] Performing Lab: [facility] [place] [facility] [address] [facility] [address] [place] LIVER FUNCTION ALKALINE PHOSPHATASE [ENZYMATIC ACTIVITY/VO LUME] IN SERUM OR PLASMA 78 U/L 40 - 150 06/22 Specimen Type: SERUM No comment entered. Ordering Provider: YUMIKO HECK Report Released Date/Time: Mar 30, 2024 07:54 AM Reporting Lab: [facility] [place] [address] [address] Performing Lab: [facility] [place] [address] [address] [place] LIVER FUNCTION ASPARTATE AMINOTRANSF ERASE [ENZYMATIC ACTIVITY/VO LUME] IN SERUM OR PLASMA 12 U/L 5 - 34 06/22 Specimen Type: SERUM No comment entered. Ordering Provider: YUMIKO HECK Report Released Date/Time: Mar 30, 2024 07:54 AM Reporting Lab: [facility] [place] [address] [address] Performing Lab: [facility] [place] [address] [address] [place] LIVER FUNCTION ALANINE AMINOTRANSF ERASE [ENZYMATIC ACTIVITY/VO LUME] IN SERUM OR PLASMA 15 U/L 06/22 Specimen Type: SERUM No comment entered. Ordering Provider: YUMIKO HECK Report Released Date/Time: Mar 30, 2024 07:54 AM Reporting Lab: [facility] [place] [address] [address] Performing Lab: [facility] [place] [address] [address] [place] LIVER FUNCTION BILIRUBIN.T OTAL [MASS/VOLUM E] IN SERUM OR PLASMA 0.5 mg/dL 0.2 - 1.2 06/22 Specimen Type: SERUM No comment entered. Ordering Provider: YUMIKO HECK Report Released Date/Time: Mar 30, 2024 07:54 AM Reporting Lab: [facility] [address] [address] Performing Lab: [facility]ITALRTAN[facility] ALABAMATRN [address] [address] [place] MICROALBU MIN CREATININ E RATIO PANEL MICROALBUMI N/CREATININ E [MASS RATIO] IN URINE 6.2 mg/g 0 - 29.9 06/22 Specimen Type: URINE No comment entered. Ordering Provider: YUMIKO HECK Report Released Date/Time: Mar 30, 2024 07:54 AM Reporting Lab: [facility]RT[facility] AL[facility]AMATRN [facility]ENUSE[address] [address] Performing Lab: [facility] [address]ITALRRMC [facility]N [address] [address] [place] MICROALBU MIN CREATININ E RATIO PANEL MICROALBUMI N [MASS/VOLUM E] IN URINE 0.9 mg/dL 06/22 Specimen Type: URINE No comment entered. Ordering Provider: YUMIKO HECK Report Released Date/Time: Mar 30, 2024 07:54 AM Reporting Lab: [facility] ALABAMATRN [address] [address] Performing Lab: [facility] [address]RT[facility] ALABAMATRN [address] [address] [place] MICROALBU MIN CREATININ E RATIO PANEL CREATININE [MASS/VOLUM E] IN URINE 146.34 mg/dL 06/22 Specimen Type: URINE No comment entered. Ordering Provider: YUMIKO HECK Report Released Date/Time: Mar 30, 2024 07:54 AM Reporting Lab: [facility] ALABAMATRN [address] [address] Performing Lab: [facility] [address]ITALRRMC [facility]ITALN [address] [address] [place] BASIC METABOLIC PANEL (fasting) UREA NITROGEN [MASS/VOLUM E] IN SERUM OR PLASMA 20 mg/dL 7 - 25 06/22 Specimen Type: SERUM No comment entered. Ordering Provider: YUMIKO HECK Report Released Date/Time: Mar 30, 2024 07:54 AM Reporting Lab: [facility]ITALRRMC [facility]N [address] [address] Performing Lab: [facility] [address]ITALRTAN[facility] ALABAMATRN [facility]DRENUS[facility] [address] [facility] [address] [place] BASIC METABOLIC PANEL (fasting) GLUCOSE [MASS/VOLUM E] IN SERUM OR PLASMA 137 mg/dL 65 - 100 06/22 H Specimen Type: SERUM No comment entered. Ordering Provider: YUMIKO HECK Report Released Date/Time: Mar 30, 2024 07:54 AM Reporting Lab: [facility]ITALRT[facility] AL[facility]AMATRN [facility]ENUSEGRE[facility] [address] [facility] [address] Performing Lab: [facility] [address]ITALRL TRN [facility] CHILDRENUSE[address] [address] [place] BASIC METABOLIC PANEL (fasting) SODIUM [MOLES/VOLU ME] IN SERUM OR PLASMA 140 mmol/L 135 - 145 06/22 Specimen Type: SERUM No comment entered. Ordering Provider: YUMIKO HECK Report Released Date/Time: Mar 30, 2024 07:54 AM Reporting Lab: [facility]RT[facility] ALABAMATRN [address] [address] Performing Lab: [facility]ITALRL TRN [facility] CHILDRENUSE[address] [address] [place] BASIC METABOLIC PANEL (fasting) POTASSIUM [MOLES/VOLU ME] IN SERUM OR PLASMA 4.5 mmol/L 3.5 - 5.0 06/22 Specimen Type: SERUM No comment entered. Ordering Provider: YUMIKO HECK Report Released Date/Time: Mar 30, 2024 07:54 AM Reporting Lab: [facility]N [facility]IL[facility]ENUSE[address] [address] Performing Lab: [facility]ITALRTAN[facility] EAST ALABAMATRN [facility]ILDRENUSE[address] [address] [place] BASIC METABOLIC PANEL (fasting) CHLORIDE [MOLES/VOLU ME] IN SERUM OR PLASMA 106 mmol/L 100 - 110 06/22 Specimen Type: SERUM No comment entered. Ordering Provider: YUMIKO HECK Report Released Date/Time: Mar 30, 2024 07:54 AM Reporting Lab: [facility]RT[facility] EAST ALABAMATRN [address] [address] Performing Lab: [facility] [address] [address] [place] BASIC METABOLIC PANEL (fasting) CARBON DIOXIDE, TOTAL [MOLES/VOLU ME] IN SERUM OR PLASMA 24 meq/L 20 - 30 06/22 Specimen Type: SERUM No comment entered. Ordering Provider: YUMIKO HECK Report Released Date/Time: Mar 30, 2024 07:54 AM Reporting Lab: [facility] [address] [address] Performing Lab: [address] [address] [place] BASIC METABOLIC PANEL (fasting) CREATININE [MASS/VOLUM E] IN SERUM OR PLASMA 1.41 mg/dL 0.50 - 1.40 06/22 H Specimen Type: SERUM No comment entered. Ordering Provider: YUMIKO HECK Report Released Date/Time: Mar 30, 2024 07:54 AM Reporting Lab: [facility] [address] [address] Performing Lab: [address] [address] [place] BASIC METABOLIC PANEL (fasting) GLOMERULAR FILTRATION RATE/1.73 SQ M.PREDICTED [VOLUME RATE/AREA] IN SERUM, PLASMA OR BLOOD BY CREATININE- BASED FORMULA (CKD-EPI 2020) 53 mL/min 60 06/22 L Specimen Type: SERUM No comment entered. Ordering Provider: YUMIKO HECK Report Released Date/Time: Mar 30, 2024 07:54 AM Reporting Lab: [address] [address] Performing Lab: [address] [address] [place] CBC AND DIFF (AUTO) LEUKOCYTES [#/VOLUME] IN BLOOD BY AUTOMATED COUNT 4.72 10*3/u L 4.50 - 11.00 06/22 Specimen Type: BLOOD No comment entered. Ordering Provider: YUMIKO HECK Report Released Date/Time: Mar 30, 2024 07:54 AM Reporting Lab[facility]AMATRN [address] [address] Performing Lab: [facility]ILDRENUSE[address] [address] [place] CBC AND DIFF (AUTO) ERYTHROCYTE S [#/VOLUME] IN BLOOD BY AUTOMATED COUNT 3.61 10*6/u L 4.23 - 5.66 06/22 L Specimen Type: BLOOD No comment entered. Ordering Provider: YUMIKO HECK Report Released Date/Time: Mar 30, 2024 07:54 AM Reporting Lab: [facility] [address] [address] Performing Lab: [facility] [address] [address] [place] CBC AND DIFF (AUTO) HEMOGLOBIN [MASS/VOLUM E] IN BLOOD 11.4 g/dL 12.8 - 17 06/22 L Specimen Type: BLOOD No comment entered. Ordering Provider: YUMIKO HECK Report Released Date/Time: Mar 30, 2024 07:54 AM Reporting Lab: [facility] [address] [address] Performing Lab: [facility] [address]ITALRRMC [facility]N [facility]ENUSETS [address] [address] [place] CBC AND DIFF (AUTO) HEMATOCRIT [VOLUME FRACTION] OF BLOOD BY AUTOMATED COUNT 34.1 39.2 - 50.4 06/22 L Specimen Type: BLOOD No comment entered. Ordering Provider: YUMIKO HECK Report Released Date/Time: Mar 30, 2024 07:54 AM Reporting Lab: [facility] [address] [address] Performing Lab: [facility]ILDRENUSE[address] [address] [place] CBC AND DIFF (AUTO) MCV [ENTITIC VOLUME] BY AUTOMATED COUNT 94.5 fL 82 - 99 06/22 Specimen Type: BLOOD No comment entered. Ordering Provider: STELEA,YUMIKO EN F Report Released Date/Time: Mar 30, 2024 07:54 AM Reporting Lab: [facility]ITAL[facility]ENUSETS [address] [address] Performing Lab: [facility] [address] [address] [place] CBC AND DIFF (AUTO) MCHC [MASS/VOLUM E] BY AUTOMATED COUNT 33.4 g/dL 30.8 - 35.1 06/22 Specimen Type: BLOOD No comment entered. Ordering Provider: YUMIKO HECK EN F Report Released Date/Time: Mar 30, 2024 07:54 AM Reporting Lab: [facility]ITAL[facility] [address] [address] Performing Lab: [facility] [address]OSPITALRL TRN [facility]ILDRENUSE[address] [address] [place] CBC AND DIFF (AUTO) PLATELETS [#/VOLUME] IN BLOOD BY AUTOMATED COUNT 193 10*3/u L 140 - 360 06/22 Specimen Type: BLOOD No comment entered. Ordering Provider: YUMIKO HECK EN F Report Released Date/Time: Mar 30, 2024 07:54 AM Reporting Lab: [facility]ITALRL TRN [facility] [address] [address] Performing Lab: [facility]ITALRL TRN [facility] [address] [address] [place] CBC AND DIFF (AUTO) ERYTHROCYTE DISTRIBUTIO N WIDTH [RATIO] BY AUTOMATED COUNT 12.7 12.0 - 16.0 06/22 Specimen Type: BLOOD No comment entered. Ordering Provider: YUMIKO HECK EN F Report Released Date/Time: Mar 30, 2024 07:54 AM Reporting Lab: [facility] [address] [address] Performing Lab: [facility]ITALRL [facility] [address] [address] [place] CBC AND DIFF (AUTO) MONOCYTES [#/VOLUME] IN BLOOD BY AUTOMATED COUNT 0.38 10*3/u L 0.30 - 1.10 06/22 Specimen Type: BLOOD No comment entered. Ordering Provider: YUMIKO HECK Report Released Date/Time: Mar 30, 2024 07:54 AM Reporting Lab: [facility] [place] [place] [address] [address] Performing Lab: [facility] [place] [address] [address] [place] CBC AND DIFF (AUTO) MCH [ENTITIC MASS] BY AUTOMATED COUNT 31.6 pg 26.2 - 32.6 06/22 Specimen Type: BLOOD No comment entered. Ordering Provider: YUMIKO HECK Report Released Date/Time: Mar 30, 2024 07:54 AM Reporting Lab: [facility] [place] [address] [address] Performing Lab: [facility] [place] [address] [address] [place] CBC AND DIFF (AUTO) NEUTROPHILS /100 LEUKOCYTES IN BLOOD BY AUTOMATED COUNT 57.4 43.7 - 75.8 06/22 Specimen Type: BLOOD No comment entered. Ordering Provider: YUMIKO HECK Report Released Date/Time: Mar 30, 2024 07:54 AM Reporting Lab: [facility] [place] [address] [address] Performing Lab: [facility] [place] [address] [address] [place] CBC AND DIFF (AUTO) LYMPHOCYTES /100 LEUKOCYTES IN BLOOD BY AUTOMATED COUNT 29.7 14.0 - 42.3 06/22 Specimen Type: BLOOD No comment entered. Ordering Provider: YUMIKO HECK Report Released Date/Time: Mar 30, 2024 07:54 AM Reporting Lab: [facility] [place] [address] [address] Performing Lab: [facility] [place] [address] [address] [place] CBC AND DIFF (AUTO) MONOCYTES/1 00 LEUKOCYTES IN BLOOD BY AUTOMATED COUNT 8.1 5.1 - 13.7 06/22 Specimen Type: BLOOD No comment entered. Ordering Provider: YUMIKO HECK Report Released Date/Time: Mar 30, 2024 07:54 AM Reporting Lab: [facility]ITALRL [facility]N [facility]CH[facility] [address] [address] Performing Lab: [facility]EN[facility] [address] [address] [place] CBC AND DIFF (AUTO) EOSINOPHILS /100 LEUKOCYTES IN BLOOD BY AUTOMATED COUNT 4.0 0.4 - 6.8 06/22 Specimen Type: BLOOD No comment entered. Ordering Provider: YUMIKO HECK Report Released Date/Time: Mar 30, 2024 07:54 AM Reporting Lab: [facility]ITALR [facility]ENUSE[address] [address] Performing Lab: [facility] HOSPITALRTANNER [facility]AST ALABAMATRN [address] [address] [place] CBC AND DIFF (AUTO) BASOPHILS/1 00 LEUKOCYTES IN BLOOD BY AUTOMATED COUNT 0.4 0.1 - 2.0 06/22 Specimen Type: BLOOD No comment entered. Ordering Provider: YUMIKO HECK Report Released Date/Time: Mar 30, 2024 07:54 AM Reporting Lab: [facility]OSPITALRTANNER [facility] ALABAMATRN [facility]ENUS[facility] [address] [address] Performing Lab: [facility] [address] [address] [place] CBC AND DIFF (AUTO) NEUTROPHILS [#/VOLUME] IN BLOOD BY AUTOMATED COUNT 2.71 10*3/u L 2.20 - 7.60 06/22 Specimen Type: BLOOD No comment entered. Ordering Provider: YUMIKO HECK Report Released Date/Time: Mar 30, 2024 07:54 AM Reporting Lab: [facility]ITALRL [facility]N [facility] [address] [address] Performing Lab: [facility] [address]OSPITALRL TRN [facility] [address] [address] [place] CBC AND DIFF (AUTO) LYMPHOCYTES [#/VOLUME] IN BLOOD BY AUTOMATED COUNT 1.40 10*3/u L 1.00 - 3.20 06/22 Specimen Type: BLOOD No comment entered. Ordering Provider: YUMIKO HECK Report Released Date/Time: Mar 30, 2024 07:54 AM Reporting Lab: [facility] [address] [address] Performing Lab: [facility] [address] [address] [place] CBC AND DIFF (AUTO) EOSINOPHILS [#/VOLUME] IN BLOOD BY AUTOMATED COUNT 0.19 10*3/u L 0.03 - 0.44 06/22 Specimen Type: BLOOD No comment entered. Ordering Provider: YUMIKO HECK F Report Released Date/Time: Mar 30, 2024 07:54 AM Reporting Lab: [facility] [address] [address] Performing Lab: [facility]ILDRENUSE[address] [address] [place] CBC AND DIFF (AUTO) BASOPHILS [#/VOLUME] IN BLOOD BY AUTOMATED COUNT 0.02 10*3/u L 0.01 - 0.13 06/22 Specimen Type: BLOOD No comment entered. Ordering Provider: YUMIKO HECK Report Released Date/Time: Mar 30, 2024 07:54 AM Reporting Lab: [facility] [address] [address] Performing Lab: [facility] [address] [address] [place] CBC AND DIFF (AUTO) IMMATURE GRANULOCYTE S/100 LEUKOCYTES IN BLOOD BY AUTOMATED COUNT 0.4 0.0 - 0.7 06/22 Specimen Type: BLOOD No comment entered. Ordering Provider: YUMIKO HECK Report Released Date/Time: Mar 30, 2024 07:54 AM Reporting Lab: [facility] [address] [address] Performing Lab: [facility] [address] [address] [place] CBC AND DIFF (AUTO) IMMATURE GRANULOCYTE S [#/VOLUME] IN BLOOD 0.02 10*3/u L 0.00 - 0.06 06/22 Specimen Type: BLOOD No comment entered. Ordering Provider: YUMIKO HECK Report Released Date/Time: Mar 30, 2024 07:54 AM Reporting Lab: [facility]OSPITALRRMC [facility]ITALN [address] [address] Performing Lab: [facility] [address] [address] [place] CBC AND DIFF (AUTO) NRBC % 0.0 0.0 - 0.0 06/22 Specimen Type: BLOOD No comment entered. Ordering Provider: YUMIKO HECK Report Released Date/Time: Mar 30, 2024 07:54 AM Reporting Lab: [address] [address] Performing Lab: [address] [address] [place] CBC AND DIFF (AUTO) NRBC, ABS 0.00 10*3/u L 0.00 - 0.00 06/22 Specimen Type: BLOOD No comment entered. Ordering Provider: YUMIKO HECK Report Released Date/Time: Mar 30, 2024 07:54 AM Reporting Lab: [address] [address] Performing Lab: [address] [address] [place] VITAMIN D (25-OH) 25-HYDROXYV ITAMIN D3 [MASS/VOLUM E] IN SERUM OR PLASMA 46 ng/mL 20 - 50 06/22 Specimen Type: SERUM No comment entered. Ordering Provider: THAD RUSH Report Released Date/Time: Jun 09, 2024 10:10 AM Reporting Lab: [address] [address] Performing Lab: [address] [address] [place] BASIC METABOLIC PANEL (fasting) UREA NITROGEN [MASS/VOLUM E] IN SERUM OR PLASMA 16 mg/dL 7 - 25 01/19 Specimen Type: SERUM No comment entered. Ordering Provider: YUMIKO HECK Report Released Date/Time: Jan 16, 2024 08:35 AM Reporting Lab: [facility]OSPITALRTANNER [facility] E[facility] ALABAMATRN [facility] [address] [facility] [address] Performing Lab: [facility]OSPITALRL TRN [facility] [address] [facility] [facility] [address] [place] BASIC METABOLIC PANEL (fasting) GLUCOSE [MASS/VOLUM E] IN SERUM OR PLASMA 151 mg/dL 65 - 100 01/19 H Specimen Type: SERUM No comment entered. Ordering Provider: YUMIKO HECK Report Released Date/Time: Jan 16, 2024 08:35 AM Reporting Lab: [facility]ITALRRMC [facility]OSPITALN [facility] [address] [facility] [address] Performing Lab: [facility]OSPITALRRMC [facility]ITALN [address] [address] [place] BASIC METABOLIC PANEL (fasting) SODIUM [MOLES/VOLU ME] IN SERUM OR PLASMA 136 mmol/L 135 - 145 01/19 Specimen Type: SERUM No comment entered. Ordering Provider: YUMIKO HECK Report Released Date/Time: Jan 16, 2024 08:35 AM Reporting Lab: [facility]ITALRRMC [facility]OSPITALN [facility] [address] [facility] [address] Performing Lab: [facility] HOSPITALRL TRN [facility]ILDRENUSE[address] [address] [place] BASIC METABOLIC PANEL (fasting) POTASSIUM [MOLES/VOLU ME] IN SERUM OR PLASMA 4.2 mmol/L 3.5 - 5.0 01/19 Specimen Type: SERUM No comment entered. Ordering Provider: YUMIKO HECK Report Released Date/Time: Jan 16, 2024 08:35 AM Reporting Lab: [facility]OSPITALRTANNER [facility] EAST ALABAMATRN [facility]DRENUSETS [facility] [address] [facility] [facility] [address] Performing Lab: [facility] [address] HOSPITALRL TRN [facility] CHILDRENUSE[address] [address] [place] BASIC METABOLIC PANEL (fasting) CHLORIDE [MOLES/VOLU ME] IN SERUM OR PLASMA 104 mmol/L 100 - 110 01/19 Specimen Type: SERUM No comment entered. Ordering Provider: YUMIKO HECK Report Released Date/Time: Jan 16, 2024 08:35 AM Reporting Lab: [facility]OSPITALRL WSTRN [facility]DRENUSEGRE[facility] [address] [facility] [address] Performing Lab: [facility]ENUSETS [facility] [address] [facility] [address] [place] BASIC METABOLIC PANEL (fasting) CARBON DIOXIDE, TOTAL [MOLES/VOLU ME] IN SERUM OR PLASMA 22 meq/L 20 - 30 01/19 Specimen Type: SERUM No comment entered. Ordering Provider: YUMIKO HECK Report Released Date/Time: Jan 16, 2024 08:35 AM Reporting Lab: [facility]OSPITALRL WSTRN [address] [address] Performing Lab: [facility]OSPITALRL TRN [facility]ILDRENUSE[address] [address] [place] BASIC METABOLIC PANEL (fasting) CREATININE [MASS/VOLUM E] IN SERUM OR PLASMA 1.32 mg/dL 0.50 - 1.40 01/19 Specimen Type: SERUM No comment entered. Ordering Provider: YUMIKO HECK Report Released Date/Time: Jan 16, 2024 08:35 AM Reporting Lab: [facility]OSPITALRL TRN [facility]DRENUSETS [address] [address] Performing Lab: [facility] [address]OSPITALRL TRN [facility] CHILDRENUSE[address] [address] [place] BASIC METABOLIC PANEL (fasting) GLOMERULAR FILTRATION RATE/1.73 SQ M.PREDICTED [VOLUME RATE/AREA] IN SERUM, PLASMA OR BLOOD BY CREATININE- BASED FORMULA (CKD-EPI 2020) 57 mL/min 60 01/19 L Specimen Type: SERUM No comment entered. Ordering Provider: YUMIKO HECK Report Released Date/Time: Jan 16, 2024 08:35 AM Reporting Lab: [facility]ITALRL WSTRN [facility]ENUS[facility] [address] [address] Performing Lab: [facility]OSPITALRRMC [facility] HOSPITALN [facility] CHILDRENUSE[address] [address] [place] LIPID PANEL FASTING CHOLESTEROL [MASS/VOLUM E] IN SERUM OR PLASMA 203 mg/dL 01/19 H Specimen Type: SERUM No comment entered. Ordering Provider: YUMIKO HECK Report Released Date/Time: Jan 16, 2024 08:35 AM Reporting Lab: [facility] [address] [facility] [address] Performing Lab: [address] [address] [place] LIPID PANEL FASTING TRIGLYCERID E [MASS/VOLUM E] IN SERUM OR PLASMA 198 mg/dL 0 - 150 01/19 H Specimen Type: SERUM No comment entered. Ordering Provider: YUMIKO HECK Report Released Date/Time: Jan 16, 2024 08:35 AM Reporting Lab: [address] [address] Performing Lab: [address] [address] [place] LIPID PANEL FASTING CHOLESTEROL IN LDL [MASS/VOLUM E] IN SERUM OR PLASMA BY CALCULATION 121 mg/dL 0 - 129 01/19 Specimen Type: SERUM No comment entered. Ordering Provider: YUMIKO HECK Report Released Date/Time: Jan 16, 2024 08:35 AM Reporting Lab: [address] [address] Performing Lab: [address] [address] [place] LIPID PANEL FASTING CHOLESTEROL .TOTAL/CHOL ESTEROL IN HDL [MASS RATIO] IN SERUM OR PLASMA 4.8 01/19 Specimen Type: SERUM No comment entered. Ordering Provider: YUMIKO HECK Report Released Date/Time: Jan 16, 2024 08:35 AM Reporting Lab: [address] [address] Performing Lab: [address] [address] [place] LIPID PANEL FASTING CHOLESTEROL IN HDL [MASS/VOLUM E] IN SERUM OR PLASMA 42 mg/dL 40 - 60 01/19 Specimen Type: SERUM No comment entered. Ordering Provider: YUMIKO HECK Report Released Date/Time: Jan 16, 2024 08:35 AM Reporting Lab: [facility] [address] [facility] [address] Performing Lab: [facility] [address] [facility] [facility] [address] [facility] Vital Signs Combined list of inpatient and outpatient Vital Signs from Department of Defense and Veterans Affairs, ranging from 12 months to all on record, depending upon the facility. Vital Sign Value Date Comments Source SYSTOLIC BLOOD PRESSURE 139 06/26/2024 08:39:11 MOBILE DIASTOLIC BLOOD PRESSURE 70 06/26/2024 08:39:11 MOBILE PULSE OXIMETRY 98 06/26/2024 08:39:11 [place] WEIGHT 173.2 06/26/2024 08:39:11 [place] BMI 28 kg/m2 06/26/2024 08:39:11 [place] PAIN 0 06/26/2024 08:39:11 [place] HEIGHT 66 06/26/2024 08:39:11 [place] TEMPERATURE 97.6 06/26/2024 08:39:11 [place] PULSE 67 06/26/2024 08:39:11 [place] RESPIRATION 20 06/26/2024 08:39:11 [place] SYSTOLIC BLOOD PRESSURE 117 01/28/2024 12:59:14 MOBILE DIASTOLIC BLOOD PRESSURE 80 01/28/2024 12:59:14 MOBILE PULSE OXIMETRY 98 01/28/2024 12:59:14 [place] WEIGHT 174 01/28/2024 12:59:14 [place] BMI 28 kg/m2 01/28/2024 12:59:14 [place] PULSE 70 01/28/2024 12:59:14 [place] SYSTOLIC BLOOD PRESSURE 130 11/27/2023 09:45:43 MOBILE DIASTOLIC BLOOD PRESSURE 77 11/27/2023 09:45:43 MOBILE PULSE OXIMETRY 94 11/27/2023 09:45:43 [place] TEMPERATURE 97.6 11/27/2023 09:45:43 [place] PULSE 76 11/27/2023 09:45:43 SHANEKA MACIAS SYSTOLIC BLOOD PRESSURE 137 11/04/2023 08:32:14 MOBILE DIASTOLIC BLOOD PRESSURE 80 11/04/2023 08:32:14 MOBILE PULSE OXIMETRY 93 11/04/2023 08:32:14 [place] WEIGHT 178 11/04/2023 08:32:14 SHANEKA MACIAS BMI 29 kg/m2 11/04/2023 08:32:14 SHANEKA MACIAS PULSE 69 11/04/2023 08:32:14 SHANEKA MACIAS Encounters Combined list of: 1) Encounters from Department of Veterans Affairs facilities going backup to the last 18 months, not all VA inpatient encounters are included; 2) Encounters from the Department of [facility] facilities going backup to 280 months. Location Location Details Encounter Type Encounter Number Reason For Visit Attending Provider ADM Date DC Date Status Disposition Source [facility] Encounter [id number] 03/15 [facility] En[facility] [id number] CAROL SHAH SA, RN 03/21 [facility] En[facility] [id number] 03/21 [facility] Encounter [id number] 03/21 [facility] Encounter [id number] DOUGLAS CONNOR 03/21 [facility] En[facility] [id number] 03/22 [facility] En[facility] [id number] 03/27 [facility] [place] MTMS BY PHARM ADDL 15 MIN [id number] Diagnos is: ICD-10- CM E11.9 Type 2 diabete s mellitu s without complic ations MIRNA,WILL CHANTAL VILLARREAL 03/28 [place] [facility] Encounter [id number] 03/29 [facility] En[facility] [id number] 04/08 [facility] [place] MTMS BY PHARM ADDL 15 MIN [id number] Diagnos is: ICD-10- CM E11.9 Type 2 diabete s mellitu s without complic ations MIRNA,WILL CHANTAL VILLARREAL 04/11 [place] [facility] En[facility] [id number] 04/12 [facility] [place] OFF[place] O/P EST MOD 30-39 MIN [id number] Diagnos is: ICD-10- CM I10 Essenti al (primar y) hyperte nsion STELEA,CAR MEN F 04/12 [place] [facility] En[facility] [id number] 04/12 [facility] [place] QNHP OL DIG ASSMT&MGMT 5-10 [id number] Diagnos is: ICD-10- CM E11.9 Type 2 diabete s mellitu s without complic ations MIRNA,WILL CHANTAL VILLARREAL 04/17 [place] [facility] En[facility] [id number] 04/18 [facility] En[facility] [id number] 04/18 [facility] En[facility] [id number] 04/18 [facility] [id number] 04/19 [facility] En[facility] [id number] 04/22 [facility] En[facility] [id number] 05/09 [facility] En[facility] [id number] 05/09 [facility]P EST LOW 20-29 MIN [id number] Diagnos is: ICD-10- CM I10 Essenti al (primar y) hyperte nsion STELEA,CAR MEN F 05/17 [place] [facility] En[facility] [id number] 05/21 [facility] En[facility] [id number] 05/22 [facility] En[facility] [id number] 05/26 [facility] En[facility] [id number] 06/02 [facility] En[facility] [id number] 06/03 [facility] En[facility] [id number] 06/03 [facility] [id number] 06/03 [facility] En[facility] [id number] 06/04 [facility] [place]/OP EST NOVEMBER X REQ PHY/QHP [id number] Diagnos is: ICD-10- CM Z23 Encount er for immuniz ation LINSEY,NI JOSHUA R 06/04 [place] [facility] Encounter [id number] 06/06 [facility] En[facility] [id number] 06/06 [facility] En[facility] [id number] 06/10 [facility] En[facility] [id number] 06/12 [facility] [id number] 06/14 [facility] [id number] 06/14 [facility] [id number] 06/18 [facility] [id number] 06/26 [facility] [id number] 07/05 [facility] [id number] 07/22 [facility] [id number] 07/29 [facility] [place] Out[place] [facility] [id number] 08/09 [place] [facility] [id number] 08/09 [facility] [id number] 08/12 [facility] En[facility] [id number] 08/16 [facility] [place] OFF/OP EST NOVEMBER X REQ PHY/QHP [id number] Diagnos is: ICD-10- CM I10 Essenti al (primar y) hyperte nsion WHITNEY MARTINEZ 08/16 [place] [facility] Encounter [id number] KEVIN BALL 08/19 [facility] [id number] 08/19 [facility] En[facility] [id number] 08/24 [facility] COMPRE OPH EXAM EST PT [id number]/ [id number] Diagnos is: ICD-10- CM E11.9 Type 2 diabete s mellitu s without complic ations QUINCY SAPP 08/26 [facility] FIT SPECTACLES BIFOCAL [id number] Diagnos is: ICD-10- CM Z46.0 Encount er for fit/adj st of spectac les and contact lenses QUINCY SAPP 08/26 [facility] En[facility] [id number] 08/29 [facility] En[facility] [id number] 08/29 [facility] [place] OFF/OP EST NOVEMBER X REQ PHY/QHP [id number] Diagnos is: ICD-10- CM R05.9 Cough, unspeci fied WESLEY,ER IC K 08/30 [place] [facility] Out[facility] Encounter [id number] 08/30 [facility] En[facility] [id number] 09/03 [facility] Encounter [id number] KAREEN MOTAMaryanne MARIAM RINKU 09/10 [facility] Encounter [id number] 09/10 [facility] [facility] En[facility] [id number] 10/02 [facility] Encounter [id number] 10/12 [facility] Encounter [id number] 10/18 [facility] Encounter [id number] 10/29 [facility] Encounter [id number] 10/30 [facility] Encounter [id number] 11/03 [facility] [place] O/P EST MOD 30 MIN [id number] Diagnos is: ICD-10- CM I10 Essenti al (primar y) hyperte nsion STELEA,CAR MEN F 11/03 [place] [facility] Out[facility] Encounter [id number] 11/09 [facility] Encounter [id number] 11/12 [facility] Encounter [id number] 11/14 [facility] Encounter [id number] 11/20 [facility] Encounter [id number] 11/21 [facility] Encounter [id number] 11/24 [facility] Encounter [id number] 11/24 [facility] [place]/OP EST MAY X REQ PHY/QHP [id number] Diagnos is: ICD-10- CM E11.9 Type 2 diabete s mellitu s without complic ations WHITNEY MARTINEZ 11/25 [place]/OP EST MAY X REQ PHY/QHP [id number] Diagnos is: ICD-10- CM Z91.81 History of falling VIELKA-IRAJ VEGA 11/26 [place] [facility] Out[facility] Encounter [id number] 11/26 [facility] [place] O/P EST MOD 30 MIN [id number] Diagnos is: ICD-10- CM T14.8XX A Other injury of unspeci fied body region, initial encount er ELENA RUSH JIMMYA C 11/26 [place] [facility] Out[facility] Encounter [id number] Juhi BUCKLEY 11/26 [facility] Encounter [id number] 12/01 [facility] Encounter [id number] 12/01 [facility] Encounter [id number] 12/09 [facility] Encounter [id number] 12/09 [facility] Encounter [id number] 12/23 [facility] Encounter [id number] 12/30 [facility] Encounter [id number] 12/30 [facility] Encounter [id number] 01/15 [facility] Out[facility] Encounter [id number] 01/23 [facility] OFFICE O/P EST MOD 30 MIN [id number] Diagnos is: ICD-10- CM E78.5 Hyperli pidemia , unspeci fied MARIA RCAR STAR F 01/27 [place] [facility] Out[facility] Encounter [id number] 01/27 [facility] QNHP OL DIG ASSMT&MGMT 5-10 [id number] Diagnos is: ICD-10- CM Z04.89 Encount er for examina tion and observa tion for oth reasons KARLO LOPEZ 01/30 [facility] Encounter [id number] 02/03 [facility] Encounter [id number] 03/30 [facility] Out[facility] Encounter [id number] 04/22 [facility] Encounter [id number] 04/23 [facility] Out[facility] Encounter [id number] 05/05 [facility] Out[facility] Encounter [id number] 06/12 [facility] Out[facility] Encounter [id number] 06/19 [facility] OFFICE O/P EST MOD 30 MIN [id number] 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 VICTOR MANUELELENA Ledezma 06/26 [facility] [place] [facility] Outpatient Encounter [id number] [facility] Outpatient Encounter [id number] 07/18 [facility] Outpatient Encounter [id number] 07/21 [facility] Social History Combined list of available smoking, tobacco, and other social history from Department of Defense and Veterans Affairs facilities. Social History Type Response Date Comment Sour e Tobacco smoking status NDIS VA-TOBACCO FORMER USER 11/04/2023 MOBILE History of tobacco use CA-TOBACCO QUIT 15 YRS OR MORE 11/04/2023 MOBILE History of tobacco use VA-TOBACCO FORMER USER 11/30/2022 MOBILE History of tobacco use CA-TOBACCO QUIT 15 YRS OR MORE 08/24/2021 MOBILE History of tobacco use VA-TOBACCO FORMER USER 08/23/2020 MOBILE History of tobacco use CA-TOBACCO QUIT 15 YRS OR MORE 02/02/2019 MOBILE History of tobacco use CA-TOBACCO QUIT 15 YRS OR MORE 06/16/2018 MOBILE History of tobacco use QUIT TOBACCO USE > 7 YEARS AGO 01/23/2017 reports quitting 25/30 years ago MOBILE History of tobacco use QUIT TOBACCO USE > 7 YEARS AGO 01/19/2016 MOBILE History of tobacco use QUIT TOBACCO USE > 7 YEARS AGO 04/14/2010 stopped tobacco 30 years ago MOBILE Plan of Care List of future care activities from Department of Veterans Affairs facilities. Additional future care activities may be listed in the Assessment and Plan section. Date/Time Care Activity Care Activity Detail Facili ty 09/17/2024 AMBULATORY - MEDICINE [facility] [place] [facility] 12/25/2024 AMBULATORY - MEDICINE AMBULATORY - MEDICI [facility] Advance Directives List of completed, amended, or rescinded Advance Directives on record at Department of [facility] facilities. An actual copy of the Directive is not included. Date Advance Directive Provider Source 11/19/2017 ADVANCE DIRECTIVE CRYSTAL BYERS [place]
--- OUTSIDE RECORDS SUMMARY | 2024-09-10 11:33 | XMS_ITS | Encounter Summary ---
Author Organization [employer] Address [address] [place] [address] [place] [address] Care Team Providers Care Hair Designer Name Role Phone Unavailable Primary Care Provider Unavailabl e Encounter Details Date Type Department Care Team (Latest Contact Info) Description 05/30/2021 Abstract [facility] CONVERSIONS Dental, Provider, DDS Social History Tobacco Use Types Packs/Day Years Used Date Smoking Tobacco: Never Assessed Sex and Gender Information Value Date Recorded Sex Assigned at Male 05/21/2022 10:23 AM EDT Legal Sex Male 10:23 AM EDT Gender Identity Male 05/21/2022 10:23 AM EDT Sexual Orientation Straight 05/21/2022 10 :23 AM EDT documented as of this encounter Plan of Treatment Not on file documented as of this encounter Visit Diagnoses Not on filedocumented in this encounter
--- OUTSIDE RECORDS SUMMARY | 2024-09-10 11:33 | XMS_ITS | Encounter Summary ---
Author Name [facility] [place] [facility] Address [address] [place] [address] Care Team Providers Care Manager Asset Management Name Role Phone FIDENCIO RUSH Primary Care [...] Name Patient's Relationship to Policy Harden AETNA [facility] MEDICARE ADVANTAGE [place] IN[place] IDUAL - [place] Oct 21, 2023 [id number] [phone] Thelma GERMAN PATIENT EDUARDO [facility] MEDICARE ADVANTAGE [facility] Jul 22, 2020 [id number] Thelma GERMAN PATIENT MEDICAID MEDICAID [id number] Jul 22, 2012 MEDICAI D [id number] MONSERRATThelma KIMO PATIENT Selected Encounter This section includes the information on record at [place] for the Encounter. Date/Time Encounter Type Encounter Description Reason Provider Source November 27, 2023 09:00 AM OFF/OP EST NOVEMBER X REQ PHY/QHP PRIMARY CARE/MEDICINE ICD-10-CM Z91.81 History of falling VIELKA-MIREKU,ST EVEN IHE Encounter Template Text not used by [facility] Assessments - Encounter Diagnoses This section includes the primary and secondary diagnoses documented for the Encounter. Date/Time Primary/Secondary Diagnosis Diagnosis Name Provider Source November 27, 2023 10:28 AM PRIMARY History of falling DELON MOORE [facility] Plan of Treatment: Future Appointments (+ 6 months) and Future Tests (+/- 45 days) The Plan of Treatment section includes future care activities for the patient from all [place] treatmentfacilities. This section includes future appointments and future orders which are active, pending or scheduled. Future Appointments This section includes appointments that were scheduled to occur 6 months from the date of the Encounter, up to a maximum of 20 appointments. The data comes from all [place] treatment facilities. Appointment Date/Time Appointment Type Appointme nt Facility Name December 02, 2023 10:00 AM [facility]ORY [facility]IC[facility] December 10, 2023 02:15 PM [facility] Jan 28, 2024 01:00 PM AMBULATORY - MEDICINE [facility] Lab Results: +/- 30 days of the encounter This section includes the Chemistry and Hematology Lab Results on record with [place] for the patient. Radiology Reports and Pathology Reports are provided separately, in subsequent sections. Lab Results This section contains the Chemistry/Hematology Results that were resulted 30 days before or 30 daysafter the date of the Encounter. Date/Time Source Result Type Result - Unit Interpretation Reference Range Comment November 27, 2023 09:53 AM [facility] VITAMIN K, PLASMA Specimen Type: PLASMA Comment: This test was developed and its analytical performance characteristics have been determined by [facility] [place], [place]. It has not been cleared or approved by the U.S. Food and Drug Administration. This assay has been validated pursuant to the CLIA regulations and is used for clinical purposes. Test Performed by [facility], [facility], [address] [place] [address] Thomas Pinzon M.D., Ph.D., Director of Laboratories , CLIA [id number] TEST PERFORMED AT: , Ordering Provider: FIDENCIO RUSH Report Released Date/Time: November 27, 2023 09:48 AM Reporting Lab: [address] [address] Performing Lab: [facility] [address] [address] VITAMIN K, PLASMA 646 pg/mL 130-1500 November 27, 2023 09:53 AM [place] FOLATE (WROX) Specimen Type: SERUM No comment entered. Ordering Provider: FIDENCIO RUSH Report Released Date/Time: November 27, 2023 09:48 AM Reporting Lab: [facility] [address] [address] Performing Lab: [facility] [address] [address] [phone] FOLATE (WROX) 7.95 ng/mL >5.2 November 27, 2023 09:53 AM [place] FERRITIN Specimen Type: SERUM No comment entered. Ordering Provider: FIDENCIO RUSH Report Released Date/Time: November 27, 2023 09:48 AM Reporting Lab: [facility] [address] [address] Performing Lab: [address] [address] FERRITIN 24 ng/mL 20-300 November 27, 2023 09:53 AM [place] PTT Specimen Type: PLASMA No comment entered. Ordering Provider: FIDENCIO RUSH Report Released Date/Time: November 27, 2023 09:48 AM Reporting Lab: [facility] [address] [address] Performing Lab: [facility] [address] [address] PTT 32.6 s 26.0-36.0 November 27, 2023 09:53 AM [facility] IRON & TIBC PANEL Specimen Type: SERUM No comment entered. Ordering Provider: FIDENCIO RUSH Report Released Date/Time: November 27, 2023 09:48 AM Reporting Lab: [facility] [address] [address] Performing Lab: [address] [address] TIBC 286 ug/dL 204-475 IRON 64 ug/dL 40-160 Transferrin Saturation 22.3 20.0-50.0 November 27, 2023 09:53 AM [facility] PT & INR (PROTIME) Specimen Type: PLASMA No comment entered. Ordering Provider: FIDENCIO RUSH Report Released Date/Time: November 27, 2023 09:48 AM Reporting Lab: [address] [address] Performing Lab: [address] [address] INR 1.0 PROTIME 11.7 s 10.0-13.1 November 27, 2023 09:53 AM [place] VITAMIN B12 Specimen Type: SERUM No comment entered. Ordering Provider: FIDENCIO RUSH Report Released Date/Time: November 27, 2023 09:48 AM Reporting Lab: [address] [address] Performing Lab: [address] [address] VITAMIN B12 872 pg/mL 200-900 November 27, 2023 09:53 AM [facility] CBC AND DIFF (AUTO) Specimen Type: BLOOD No comment entered. Ordering Provider: FIDENCIO RUSH Report Released Date/Time: November 27, 2023 09:48 AM Reporting Lab: [address] [address] Performing Lab: [address] [address] WBC 5.32 10*3/uL 4.50-11.00 RBC 3.73 10*6/uL L 4.23-5.66 HGB 11.4 g/dL L 12.8-17 HCT 33.8 L 39.2-50.4 MCV 90.6 fL 82-99 MCHC 33.7 g/dL 30.8-35.1 PLT 247 10*3/uL 140-360 RDW-CV 13.0 12.0-16.0 [place], Abs 0.30 10*3/uL 0.30-1.10 MCH 30.6 pg 26.2-32.6 Neut % 63.1 43.7-75.8 Lymph % 26.7 14.0-42.3 [place] % 5.6 5.1-13.7 Eos % 3.6 0.4-6.8 Baso % 0.6 0.1-2.0 Neut, Abs 3.36 10*3/uL 2.20-7.60 Lymph, Abs 1.42 10*3/uL 1.00-3.20 Eos, Abs 0.19 10*3/uL 0.03-0.44 Baso, Abs 0.03 10*3/uL 0.01-0.13 Immature Gran % 0.4 0.0-0.7 Immature Gran, Abs 0.02 10*3/uL 0.00-0.06 Nov 04, 2023 09:10 AM [facility] VITAMIN D 25-OH (Therapy monitor) Speci men [...] For additional information, please refer to http://education .[employer]/faq/MTO227 (This link is being provided for informational/ educational purposes only.) This test was developed and its analytical performance characteristics have been determined by [employer] [place]. It has not been cleared or approved by the U.S. Food and Drug Administration. This assay has been validated pursuant to the CLIA regulations and is used for clinical purposes. This test was developed and its analytical performance characteristics have been determined by [facility] [place]. It has not been cleared or approved by the U.S. Food and Drug Administration. This assay has been validated pursuant to the CLIA regulations and is used for clinical purposes. Test Performed by [facility], [facility], [address] [place] [address] Thomas Pinzon M.D., Ph.D., Director of Laboratories , CLIA [id number] TEST PERFORMED AT: , Ordering Provider: HIPOLITO HECK Report Released Date/Time: Sep 26, 2023 09:36 AM Reporting Lab: [facility] [address] [address] Performing Lab: [facility] [address] [address] VITAMIN D, 25-OH, TOTAL 41 ng/mL 30-100 VITAMIN D, 25-OH, D3 41 ng/mL VITAMIN D, 25-OH, D2 <4 ng/mL Nov 04, 2023 09:10 AM [place] BASIC METABOLIC PANEL (fasting) Specime n Type: SERUM No comment entered. Ordering Provider: HIPOLITO HECK Report Released Date/Time: Sep 26, 2023 09:36 AM Reporting Lab: [facility] [address] [address] Performing Lab: [address] [address] UREA NITROGEN 13 mg/dL 7-25 GLUCOSE 153 mg/dL H 65-100 SODIUM 138 mmol/L 135-145 POTASSIUM 4.2 mmol/L 3.5-5.0 CHLORIDE 104 mmol/L 100-110 CO2 23 meq/L 20-30 CREATININE, Serum 1.37 mg/dL 0.50-1.40 eGFR(CKD-EPI 2020) 54 mL/min L >60 Nov 04, 2023 09:10 AM [facility] HEMOGLOBIN A1C PANEL Specimen Type: BLOOD Comment: [...] Sep 26, 2023 09:36 AM Reporting Lab: [facility] [address] [address] Performing Lab: [address] [address] HEMOGLOBIN A1C 6.4 H 4.0-5.6 Nov 04, 2023 09:10 AM [facility] VITAMIN B12 Specimen Type: SERUM No comment entered. Ordering Provider: HIPOLITO HECK Report Released Date/Time: Sep 26, 2023 09:36 AM Reporting Lab: [address] [address] Performing Lab: [address] [address] VITAMIN B12 779 pg/mL 200-900 Nov 04, 2023 09:10 AM [facility] LIPID PANEL FASTING Specimen Type: SERUM No comment entered. Ordering Provider: HIPOLITO HECK Report Released Date/Time: Sep 26, 2023 09:36 AM Reporting Lab: [address] [address] Performing Lab: [address] [address] CHOLESTEROL 224 mg/dL H TRIGLYCERIDE 154 mg/dL H 0-150 LDL calculated 146 mg/dL H 0-129 CHOL/HDL 4.8 HDL CHOLESTEROL 47 mg/dL 40-60 Nov 04, 2023 09:10 AM [facility] LIVER FUNCTION Specimen Type: SERUM No comment entered. Ordering Provider: HIPOLITO HECK Report Released Date/Time: Sep 26, 2023 09:36 AM Reporting Lab: [address] [address] Performing Lab: [address] [address] PROTEIN,TOTAL 7.1 g/dL 6.0-8.3 ALBUMIN 3.9 g/dL 3.5-5.0 ALKALINE PHOSPHATASE 75 U/L 40-150 AST 9 U/L 5-34 ALT 11 U/L BILIRUBIN, TOTAL 0.7 mg/dL 0.2-1.2 Vital Signs: All taken on the encounter date This section contains inpatient and outpatient Vital Signs collected on the date of the Encounter. Date/Time Temperature Pulse Blood Pressure Respiratory Rate SP02 Pain Height Weight Body Mass Index Source November 27, 2023 09:45 AM 97.6 76 130/77 94 [facility] [place] Social History: Smoking Status (Most current) and Tobacco Use (All prior to encounter date) This section includes the most current, and the historical, smoking and tobacco- related health factors from the [place] facility where the Encounter took place. Current Smoking Status This section includes the most current smoking, or tobacco-related health factor, from the [place] facility where the Encounter took place. Date/Time Current Smoking Status Comment Facil ity Nov 04, 2023 08:30 AM VA-TOBACCO FORMER USER [facility] Tobacco Use History This section includes a history of the smoking, or tobacco-related health factors, that were collected on or before the date of the Encounter. The data comes from the [place] facility where the Encounter took place. Date/Time Smoking Status/Tobacco Use Comment F acility Nov 04, 2023 08:30 AM VA-TOBACCO QUIT 15 YRS OR MORE [facility] November 30, 2022 10:00 AM VA-TOBACCO FORMER USER [facility] November 30, 2022 10:00 AM VA-TOBACCO QUIT 15 YRS OR MORE [facility] Aug 24, 2021 01:00 PM VA-TOBACCO FORMER USER [facility] Aug 24, 2021 01:00 PM VA-TOBACCO QUIT 15 YRS OR MORE [facility] Aug 23, 2020 10:00 AM VA-TOBACCO FORMER USER [facility] Aug 23, 2020 10:00 AM VA-TOBACCO QUIT 15 YRS OR MORE [facility] Feb 02, 2019 10:41 AM VA-TOBACCO FORMER USER [facility] Feb 02, 2019 10:41 AM VA-TOBACCO QUIT 15 YRS OR MORE [facility] Jun 16, 2018 02:13 PM VA-TOBACCO FORMER USER [facility] Jun 16, 2018 02:13 PM VA-TOBACCO QUIT 15 YRS OR MORE [facility] Jan 23, 2017 09:31 AM QUIT TOBACCO USE > 7 YEARS AGO reports quitting 25/30 years ago [facility] Jan 19, 2016 01:51 PM QUIT TOBACCO USE > 7 YEARS AGO [facility] Apr 14, 2010 08:37 AM QUIT TOBACCO USE > 7 YEARS AGO stopped tobacco 30 years ago [facility] Advance Directives: All historical and current Section Date Range: From patient's date of to the date document was created. This section includes ALL of a patient's completed or amended [place] Advance and Rescinded Directives. The entries below indicate that a directive exists for the patient, but an actual copy is not included with this document. The data comes from all [facility]. Date Advance Directives Provider Source November 19, 2017 ADVANCE DIRECTIVE CRYSTAL BYERS [place] Encounter Notes: All associated encounter notes This section contains the clinical notes associated to the Encounter. Date/Time Encounter Note(s) Provider Source November 27, 2023 10:22 AM PRIMARY CARE NOTE: LOCAL TITLE: WALK-IN NOTE PRIMARY CARE (T) STANDARD TITLE: PRIMARY CARE NOTE DATE OF NOTE: NOVEMBER 27, 2023@10:22 ENTRY DATE: NOVEMBER 27, 2023@10:22:56 AUTHOR: IRAJ MOORE COSIGNER: URGENCY: STATUS: COMPLETED <====Click to Start Nurse Data: 73year old MALE [place] reports to Primary Care clinic for Walk-In visit. 's PCP is HIPOLITO HECK Today Vet walks in to clinic with complaint of bruising easily. Last recorded Vital Signs are: Temperature:97.6 F [36.4 C] (11/27/2023 09:45) Pulse:76 (11/27/2023 09:45) Blood Pressure:130/77 (11/27/2023 09:45) Respiration:18 (03/13/2022 13:11) Pain:0 (03/13/2022 13:11) Current Medications from Active Med list include: Active Outpatient Medications (including Supplies): Active Outpatient Medications Status ========= 1) ACCU-CHEK GUIDE (GLUCOSE) TEST STRIP USE 1 STRIP TO ACTIVE TEST BLOOD SUGARS EVERY OTHER DAY 2) ALOGLIPTIN 12.5MG TAB TAKE ONE TABLET BY MOUTH ONCE ACTIVE DAILY 3) AMLODIPINE BESYLATE 2.5MG TAB TAKE ONE TABLET BY ACTIVE MOUTH ONCE DAILY FOR HIGH BLOOD PRESSURE FOR BLOOD PRESSURE/HEART, DO NOT TAKE WITH GRAPEFRUIT JUICE 4) ATORVASTATIN CALCIUM 80MG TAB TAKE ONE-HALF TABLET BY ACTIVE MOUTH AT BEDTIME FOR HIGH CHOLESTEROL WILL REPLACE THE 20 MG BY MOUTH AT BEDTIME 5) BUDESONIDE 9MG SA TAB TAKE ONE TABLET BY MOUTH EVERY ACTIVE MORNING FOR 2 MONTHS 6) CALCIUM 500MG/VITAMIN D 200 UNT TAB TAKE 1 TABLET BY ACTIVE MOUTH ONCE DAILY 7) CYANOCOBALAMIN 500MCG TAB TAKE ONE TABLET BY MOUTH ACTIVE ONCE DAILY FOR PREVENTION OF VITAMIN B12 DEFICIENCY 8) FERROUS SULFATE 325MG TAB TAKE ONE TABLET BY MOUTH ACTIVE ONCE DAILY TO SUPPLEMENT IRON 9) FEXOFENADINE HCL 180MG TAB TAKE ONE TABLET BY MOUTH ACTIVE ONCE DAILY FOR ALLERGIES 10) FLUTICASONE PROP 50MCG 120D NASAL INHL INSTILL 2 ACTIVE SPRAYS INTO EACH NOSTRIL ONCE DAILY FOR ALLERGIC RHINITIS 11) LANCET,SOFTCLIX USE 1 LANCET DIRECTED EVERY OTHER ACTIVE DAY TO TEST BLOOD SUGAR 12) NUTR SUPL GLUCERNA THER NUTR SHAKE VAN DRINK 1 CAN BY ACTIVE MOUTH TWICE DAILY STRAWBERRY 13) USTEKINUMAB 90MG/ML INJ 1ML SYR INJECT 90MG (1ML) ACTIVE SUBCUTANEOUSLY EVERY 8 WEEKS Response: had visible old bruises on bilateral arms. He states he has had several falls in the past and bruises easily. denied any pain, chest pain, SOB or dizziness at this time. Patrick Sandoval NP saw and attended to . /harvey/ IRAJ MOORE RN REGISTERED NURSE Signed: 11/27/2023 10:29 IRAJ MOORE
--- OUTSIDE RECORDS SUMMARY | 2024-09-10 11:33 | XMS_ITS | Continuity of Care Document ---
Author Organization [facility] Address [address] [place] [address]- Care Team Providers Care Egyptologist Name Role Phone Ramu Mccollum MD Primary Care Physician [phone] [place] [facility] [place](s): 07/17/24 - 08/16/24 [facility] [address] [place] [id number]- Attending Physician: Perfecto Tan Admitting Physician: Perfecto Tan Referring Physician: Perfecto Tan Encounter Type: Triage Allergies, Adverse Reactions, Alerts No Known Medication Allergies Immunizations Given and Recorded Vaccine Date Status Refusal Reason tetanus/diphtheria/pertussis, acel(Tdap) 03/17/22 Given Medications amLODIPine 2.5 mg oral tablet 2.5 mg, 1, tablet, By Mouth, Daily, # 90 tablet, Refills 0, Maintenance, 06/06/23 3:33:00 PM EST, Partial fill upon patient request if the prescription is for a schedule II opioid drug. Start Date: 06/06/23 Status: Ordered Quantity: 90.0 Unit: tablet Repeat number: 1 atorvastatin 40 mg oral tablet 0.5 tablet = 20 mg, By Mouth, Daily, # 30 tablet, 5 Refills, Maintenance, 06/06/23 3:34:00 PM EST, Tablet, Partial fill upon patient request if the prescription is for a schedule II opioid drug. Start Date: 06/06/23 Status: Ordered Quantity: 30.0 Unit: tablet Repeat number: 1 calcium (as carbonate)-vitamin D 500 mg-400 intl units oral tablet 1 tablet, By Mouth, Daily, # 90 tablet, 2 Refills, Maintenance, 06/06/23 3:35:00 PM EST, Tablet, [facility], Partial fill upon patient request if the prescription is for a schedule II opioid drug., 1 tablet By Mouth Daily, 168, cm, 06/06/23 15:05:00 EST, Height, 75, kg, 10/12/22 16:04:00 EDT, Dry Weight Start Date: 06/06/23 Status: Ordered Quantity: 90.0 Unit: tablet Repeat number: 3 calcium and vitamin D combination 500 mg-200 iu oral tablet 1 tablet, By Mouth, Daily, # 90 tablet, 2 Refills, Maintenance, 06/07/23 2:00:00 PM EST, [facility], Partial fill upon patient request if the prescription is for a schedule II opioid drug., 1 tablet By Mouth Daily, 168, cm, 06/06/23 15:05:00 EST, Height, 75, kg, 10/12/22 16:04:00 EDT, Dry Weight Start Date: 06/07/23 Status: Ordered Quantity: 90.0 Unit: tablet Repeat number: 3 ferrous sulfate 325 mg oral enteric coated tablet 325 mg, 1, tablet, By Mouth, Daily, # 30 tablet, Refills 5, Tot. Refills 5, Maintenance, 01/15/23 12:44:00 PM EDT, Route to Pharmacy Electronically, [facility], Partial fill upon patient request if the prescription is for a schedule II opioid drug., 168, cm, 10/12/22 18:19:00 EDT, Height, 75, kg, 10/12/22 16:04:00 EDT, Dry Weight Start Date: 01/15/23 Status: Ordered Quantity: 30.0 Unit: tablet Repeat number: 6 fexofenadine 180 mg oral tablet 1 tablet = 180 mg, By Mouth, Daily, # 30 tablet, 0 Refills, Maintenance, 06/06/23 3:33:00 PM EST, Tablet, Partial fill upon patient request if the prescription is for a schedule II opioid drug. Start Date: 06/06/23 Status: Ordered Quantity: 30.0 Unit: tablet Repeat number: 1 Insulin Aspart = 5 units, Subcutaneous Infusion, 3 times a day before meals, Take 5 units with meals, 0 Refills, Maintenance, 09/27/21 4:30:00 PM EST, Partial fill upon patient request if the prescription is for a schedule II opioid drug. Start Date: 09/27/21 Status: Ordered Repeat number: 1 NovoLOG 100 units/mL injectable solution Subcutaneous Infusion, 3 times a day before meals, 0 Refills, Maintenance, 05/04/22 8:35:00 AM EDT,Partial fill upon patient request if the prescription is for a schedule II opioid drug. Start Date: 05/04/22 Status: Ordered Repeat number: 1 Stelara PFS 90 mg/mL subcutaneous solution = 90 mg, Subcutaneous Injection, Every 8 Weeks, # 1 each, 5 Refills, Maintenance, 07/21/24 8:36:00 AM EST, [facility], Partial fill upon patient request if the prescription is for aschedule II opioid drug., 170, cm, 07/17/24 10:10:00 EST, Height, 75, kg, 10/12/22 16:04:00 EDT, Dry Weight Start Date: 07/21/24 Status: Ordered Quantity: 1.0 Unit: each Repeat number: 6 Uceris 9 mg oral tablet, extended release 1 tablet = 9 mg, By Mouth, Daily in AM, 1 tab daily x 2 months, please mail to patient, # 30 tablet, 1 Refills, Maintenance, 06/24/23 10:30:00 AM EST, ER Tablet, [facility], please mail to patient, 168, cm, 06/06/23 15:05:00 EST, Height, 75, kg, 10/12/22 16:04:00 EDT, Dry Weight Start Date: 06/24/23 Status: Ordered Quantity: 30.0 Unit: tablet Repeat number: 2 Vitamin D2 2000 intl units oral capsule 1 capsule = 50 mcg, By Mouth, Daily, with food, # 60 capsule, 0 Refills, Maintenance, 06/06/23 3:34:00 PM EST, Capsule, Partial fill upon patient request if the prescription is for a schedule II opioid drug. Start Date: 06/06/23 Status: Ordered Quantity: 60.0 Unit: capsule Repeat number: 1 Problem List Condition Confirmation Course Effective Dates Status H ealth Status Informant Cataract Confirmed Active COVID-19 1 Confirmed 12/01/21 Active Depression Confirmed Active Hyperlipidemia Confirmed Active Hypertension Confirmed Active Ischemic heart disease Confirmed Active Obesity Confirmed Active Colon polyps Confirmed Active Type 2 diabetes mellitus Confirmed Active Ulcerative colitis Confirmed Active 1Problem added by Discern Expert Social History Social History Type Response Smoking Status Former smoker, quit more than 30 days ago entered on: 06/12/21 Sex Sex Representation Male (finding) Patient Care team information Care Team Personnel Name: Manisha Mclain RN Position: [facility] SN RN Member Role: Primary Care Nurse Name: Avis Marshall RN Position: S RN Member Role: Primary Care Nurse Name: Izzy Bal Position: S RN Member Role: Primary Care Nurse Name: Ramy Diaz MD Position: [facility] Renal MD Member Role: Lifetime Consulting Physician Address: [address] [place] [address] [address] [place] [address]- Telecom: Name: George Thakkar RN Position: [facility] RN Member Role: Primary Care Nurse Name: Tonja Morales RN Position: [facility] RN Member Role: Primary Care Nurse Name: Harjinder Duke RN Position: S RN Member Role: Primary Care Nurse Name: Manisha Cotter RN Position: S RN Member Role: Primary Care Nurse Name: Ramu Mccollum MD Position: Reference Physician Member Role: PCP Address: [address] [place] [phone]- Telecom: Name: Makayla Smalls NP Position: [facility] PCO Associate Professional Member Role: Primary Care Nurse Address: [address] [place] [phone]- Telecom: Name: Jenny Gonzalez RN Position: [facility] XIAO Nurse Member Role: Primary Care Nurse Name: Steph Ruiz RN Position: [facility] RN Member Role: Primary Care Nurse Name: Heather Stark RN Position: [facility] RN Member Role: Primary Care Nurse Care Team Related Persons Name: CHANTELLE VALENZUELA Insurance Providers Guarantor name: [facility] Plan Information #: 1 Payer: [facility] Member Number: NA Policy Number: NA Group Number: [id number]
--- OUTSIDE RECORDS SUMMARY | 2024-09-10 11:33 | XMS_ITS | Clinical Summary ---
Author Organization [employer] Address [address] [place] [address] [address] [place] [address] Care Team Providers Care Egg Separator Name Role Phone Unavailable Primary Care Provider Unavailabl e Social History Tobacco Use Types Packs/Day Years Used Date Smoking Tobacco: Never Assessed Sex and Gender Information Value Date Recorded Sex Assigned at Male 05/21/2022 10:23 AM EDT Legal Sex Male 10:23 AM EDT Gender Identity Male 05/21/2022 10:23 AM EDT Sexual Orientation Straight 05/21/2022 10 :23 AM EDT Plan of Treatment Health Maintenance Due Date Last Done Comments CT Colonography 1951 Colonoscopy 1951 Colorectal Cancer Screening 1951 Depression Screening 1950 FIT DNA/Cologuard 1951 FIT 1951 FOBT 1951 Lipid Panel 1950 Sigmoidoscopy 1951 Alcohol/Substance Use Screening 1963 Tobacco Screening 1963 DTaP/Tdap/Td Vaccines (1 - Tdap) 1970 Pneumococcal Vaccine: 50+ Ye ars (1 of 1 - PCV) 2001 Zoster Vaccines (1 of 2) 2001 COVID-19 Vaccine ( - 2023-2 5 season) 2024 Influenza Vaccine (#1) 2024 RSV Patients and Pa tients Aged 60 years or older (1 - 1-dose 75+ series) 2026 HIB Vaccines Aged Out No longer eligi ble based on patient's age to complete this topic HPV Vaccines Aged Out No longer eligi ble based on patient's age to complete this topic Hepatitis A Vaccines Aged Out No long er eligible based on patient's age to complete this topic Hepatitis B Vaccines Aged Out No long er eligible based on patient's age to complete this topic IPV Vaccines Aged Out No longer eligi ble based on patient's age to complete this topic Meningococcal Vaccine Aged Out No dennys alexis eligible based on patient's age to complete this topic RSV under 20 months Aged Out No longe r eligible based on patient's age to complete this topic Rotavirus Vaccines Aged Out No longer eligible based on patient's age to complete this topic
--- OUTSIDE RECORDS SUMMARY | 2024-09-10 11:33 | XMS_ITS | Encounter Summary ---
Author Name [facility] [place] [facility] [place] [facility] [place] Address [address] [place] [address] Care Team Providers Care File Drawer Finisher Name Role Phone FIDENCIO RUSH Primary Care [...] Name Patient's Relationship to Policy Harden [employer] [facility] MEDICARE ADVANTAGE [place] [facility] [facility] [place] Oct 21, 2023 [id number] [phone] Thelma GERMAN PATIENT [facility] ([place] MEDICARE ADVANTAGE [facility] Jul 22, 2020 [id number] Thelma GERMAN PATIENT MEDICAID MEDICAID [facility] Jul 22, 2012 MEDICAI [id number] Thelma GERMAN PATIENT Selected Encounter This section includes the information on record at [place] for the Encounter. Date/Time Encounter Type Encounter Description Reason Provider Source November 27, 2023 09:15 AM OFFICE O/P EST MOD 30 MIN PRIMARY CARE/MEDICINE ICD-10-CM T14.8XXA Other injury of unspecified body region, initial encounter FIDENCIO RUSH Williams Encounter Template Text not used by [facility] Assessments - Encounter Diagnoses This section includes the primary and secondary diagnoses documented for the Encounter. Date/Time Primary/Secondary Diagnosis Diagnosis Name Provider Source November 27, 2023 10:41 AM PRIMARY Other injury of unspecified body region, initial encounter FIDENCIO RUSH Plan of Treatment: Future Appointments (+ 6 months) and Future Tests (+/- 45 days) The Plan of Treatment section includes future care activities for the patient from all [place] treatmentfacilities. This section includes future appointments and future orders which are active, pending or scheduled. Future Appointments This section includes appointments that were scheduled to occur 6 months from the date of the Encounter, up to a maximum of 20 appointments. The data comes from all [place] treatment facilities. Appointment Date/Time Appointment Type Appointme nt Facility Name December 02, 2023 10:00 AM [facility] December 10, 2023 02:15 PM [facility] Jan 28, 2024 01:00 PM [facility]AT[facility]ICINE [facility] Lab Results: +/- 30 days of the encounter This section includes the Chemistry and Hematology Lab Results on record with [place] for the patient. Radiology Reports and Pathology Reports are provided separately, in subsequent sections. Lab Results This section contains the Chemistry/Hematology Results that were resulted 30 days before or 30 daysafter the date of the Encounter. Date/Time Source Result Type Result - Unit Interpretation Reference Range Comment November 27, 2023 09:53 AM [facility] VITAMIN K, PLASMA Specimen Type: PLASMA Comment: This test was developed and its analytical performance characteristics have been determined by [facility] [place], [place]. It has not been cleared or approved by the U.S. Food and Drug Administration. This assay has been validated pursuant to the CLIA regulations and is used for clinical purposes. Test Performed by [facility], [facility] [place], [address] [place] [address] Thomas Pinzon M.D., Ph.D., Director of Laboratories , CLIA [id number] TEST PERFORMED AT: , Ordering Provider: FIDENCIO RUSH Report Released Date/Time: November 27, 2023 09:48 AM Reporting Lab: [address] [address] Performing Lab: [facility] [address] [address] VITAMIN K, PLASMA 646 pg/mL 130-1500 November 27, 2023 09:53 AM [facility] FOLATE (WROX) Specimen Type: SERUM No comment entered. Ordering Provider: FIDENCIO RUSH Report Released Date/Time: November 27, 2023 09:48 AM Reporting Lab: [facility] [address] [facility] [address] Performing [facility]: [facility] [address] [facility] [address] FOLATE (WROX) 7.95 ng/mL >5.2 November 27, 2023 09:53 AM [facility] FERRITIN Specimen Type: SERUM No comment entered. Ordering Provider: FIDENCIO RUSH Report Released Date/Time: November 27, 2023 09:48 AM Reporting Lab: [address] [address] Performing Lab: [facility] [address] FERRITIN 24 ng/mL 20-300 November 27, 2023 09:53 AM [facility] IRON & TIBC PANEL Specimen Type: SERUM No comment entered. Ordering Provider: FIDENCIO RUSH Report Released Date/Time: November 27, 2023 09:48 AM Reporting Lab: [address] [address] Performing Lab: [facility] [address] TIBC 286 ug/dL 204-475 IRON 64 ug/dL 40-160 Transferrin Saturation 22.3 20.0-50.0 November 27, 2023 09:53 AM [facility] PTT Specimen Type: PLASMA No comment entered. Ordering Provider: FIDENCIO RUSH Report Released Date/Time: November 27, 2023 09:48 AM Reporting Lab: [facility] [address] Performing Lab: [facility] [address] PTT 32.6 s 26.0-36.0 November 27, 2023 09:53 AM [facility] PT & INR (PROTIME) Specimen Type: PLASMA No comment entered. Ordering Provider: FIDENCIO RUSH Report Released Date/Time: November 27, 2023 09:48 AM Reporting Lab: [address] [address] Performing Lab: [address] [address] INR 1.0 PROTIME 11.7 s 10.0-13.1 November 27, 2023 09:53 AM [facility] VITAMIN B12 Specimen Type: SERUM No comment entered. Ordering Provider: FIDENCIO RUSH Report Released Date/Time: November 27, 2023 09:48 AM Reporting Lab: [address] [address] Performing Lab: [address] [address] VITAMIN B12 872 pg/mL 200-900 November 27, 2023 09:53 AM [facility] CBC AND DIFF (AUTO) Specimen Type: BLOOD No comment entered. Ordering Provider: FIDENCIO RUSH Report Released Date/Time: November 27, 2023 09:48 AM Reporting Lab: [address] [address] Performing Lab: [address] [address] WBC 5.32 10*3/uL 4.50-11.00 RBC 3.73 10*6/uL L 4.23-5.66 HGB 11.4 g/dL L 12.8-17 HCT 33.8 L 39.2-50.4 MCV 90.6 fL 82-99 MCHC 33.7 g/dL 30.8-35.1 PLT 247 10*3/uL 140-360 RDW-CV 13.0 12.0-16.0 [place], Abs 0.30 10*3/uL 0.30-1.10 MCH 30.6 pg 26.2-32.6 Neut % 63.1 43.7-75.8 Lymph % 26.7 14.0-42.3 [place] % 5.6 5.1-13.7 Eos % 3.6 0.4-6.8 Baso % 0.6 0.1-2.0 Neut, Abs 3.36 10*3/uL 2.20-7.60 Lymph, Abs 1.42 10*3/uL 1.00-3.20 Eos, Abs 0.19 10*3/uL 0.03-0.44 Baso, Abs 0.03 10*3/uL 0.01-0.13 Immature Gran % 0.4 0.0-0.7 Immature Gran, Abs 0.02 10*3/uL 0.00-0.06 Nov 04, 2023 09:10 AM [facility] VITAMIN D 25-OH (Therapy monitor) Speci men [...] For additional information, please refer to http://education .Impulsiv.Wynlink/faq/LFT460 (This link is being provided for informational/ educational purposes only.) This test was developed and its analytical performance characteristics have been determined by [facility]. It has not been cleared or approved by the U.S. Food and Drug Administration. This assay has been validated pursuant to the CLIA regulations and is used for clinical purposes. This test was developed and its analytical performance characteristics have been determined by [facility] [place], [place]. It has not been cleared or approved by the U.S. Food and Drug Administration. This assay has been validated pursuant to the CLIA regulations and is used for clinical purposes. Test Performed by [facility], [facility] [place], [address] [place] [address] Thomas Pinzon M.D., Ph.D., Director of Laboratories , CLIA [id number] TEST PERFORMED AT: , Ordering Provider: HIPOLITO HECK Report Released Date/Time: Sep 26, 2023 09:36 AM Reporting Lab: [facility] [address] [facility] [address] Performing Lab: [facility] [address] [address] VITAMIN D, 25-OH, TOTAL 41 ng/mL 30-100 VITAMIN D, 25-OH, D3 41 ng/mL VITAMIN D, 25-OH, D2 <4 ng/mL Nov 04, 2023 09:10 AM [facility] BASIC METABOLIC PANEL (fasting) Specime n Type: SERUM No comment entered. Ordering Provider: HIPOLITO HECK Report Released Date/Time: Sep 26, 2023 09:36 AM Reporting Lab: [address] [address] Performing Lab: [address] [address] UREA NITROGEN 13 mg/dL 7-25 GLUCOSE 153 mg/dL H 65-100 SODIUM 138 mmol/L 135-145 POTASSIUM 4.2 mmol/L 3.5-5.0 CHLORIDE 104 mmol/L 100-110 CO2 23 meq/L 20-30 CREATININE, Serum 1.37 mg/dL 0.50-1.40 eGFR(CKD-EPI 2020) 54 mL/min L >60 Nov 04, 2023 09:10 AM [facility] LIPID PANEL FASTING Specimen Type: SERUM No comment entered. Ordering Provider: HIPOLITO HECK Report Released Date/Time: Sep 26, 2023 09:36 AM Reporting Lab: [address] [address] Performing Lab: [address] [address] CHOLESTEROL 224 mg/dL H TRIGLYCERIDE 154 mg/dL H 0-150 LDL calculated 146 mg/dL H 0-129 CHOL/HDL 4.8 HDL CHOLESTEROL 47 mg/dL 40-60 Nov 04, 2023 09:10 AM [facility] VITAMIN B12 Specimen Type: SERUM No comment entered. Ordering Provider: HIPOLITO HECK Report Released Date/Time: Sep 26, 2023 09:36 AM Reporting Lab: [address] [address] Performing Lab: [address] [address] VITAMIN B12 779 pg/mL 200-900 Nov 04, 2023 09:10 AM [facility] LIVER FUNCTION Specimen Type: SERUM No comment entered. Ordering Provider: HIPOLITO HECK Report Released Date/Time: Sep 26, 2023 09:36 AM Reporting Lab: [address] [address] Performing Lab: [address] [address] PROTEIN,TOTAL 7.1 g/dL 6.0-8.3 ALBUMIN 3.9 g/dL 3.5-5.0 ALKALINE PHOSPHATASE 75 U/L 40-150 AST 9 U/L 5-34 ALT 11 U/L BILIRUBIN, TOTAL 0.7 mg/dL 0.2-1.2 Nov 04, 2023 09:10 AM [facility] HEMOGLOBIN A1C PANEL Specimen Type: BLOOD Comment: [...] Sep 26, 2023 09:36 AM Reporting Lab: [address] [address] Performing Lab: [address] [address] HEMOGLOBIN A1C 6.4 H 4.0-5.6 Vital Signs: All taken on the encounter date This section contains inpatient and outpatient Vital Signs collected on the date of the Encounter. Date/Time Temperature Pulse Blood Pressure Respiratory Rate SP02 Pain Height Weight Body Mass Index Source November 27, 2023 09:45 AM 97.6 76 130/77 94 [facility] Social History: Smoking Status (Most current) and Tobacco Use (All prior to encounter date) This section includes the most current, and the historical, smoking and tobacco- related health factors from the [place] facility where the Encounter took place. Current Smoking Status This section includes the most current smoking, or tobacco-related health factor, from the [place] facility where the Encounter took place. Date/Time Current Smoking Status Comment Facil ity Nov 04, 2023 08:30 AM VA-TOBACCO FORMER USER [facility] Tobacco Use History This section includes a history of the smoking, or tobacco-related health factors, that were collected on or before the date of the Encounter. The data comes from the [place] facility where the Encounter took place. Date/Time Smoking Status/Tobacco Use Comment F acility Nov 04, 2023 08:30 AM VA-TOBACCO QUIT 15 YRS OR MORE [facility] November 30, 2022 10:00 AM VA-TOBACCO FORMER USER [facility] November 30, 2022 10:00 AM VA-TOBACCO QUIT 15 YRS OR MORE [facility] Aug 24, 2021 01:00 PM VA-TOBACCO FORMER USER [facility] Aug 24, 2021 01:00 PM VA-TOBACCO QUIT 15 YRS OR MORE [facility] Aug 23, 2020 10:00 AM VA-TOBACCO FORMER USER [facility] Aug 23, 2020 10:00 AM VA-TOBACCO QUIT 15 YRS OR MORE [facility] Feb 02, 2019 10:41 AM VA-TOBACCO FORMER USER [facility] Feb 02, 2019 10:41 AM VA-TOBACCO QUIT 15 YRS OR MORE [facility] Jun 16, 2018 02:13 PM VA-TOBACCO FORMER USER [facility] Jun 16, 2018 02:13 PM VA-TOBACCO QUIT 15 YRS OR MORE [facility] Jan 23, 2017 09:31 AM QUIT TOBACCO USE > 7 YEARS AGO reports quitting 25/30 years ago [facility] Jan 19, 2016 01:51 PM QUIT TOBACCO USE > 7 YEARS AGO [facility] Apr 14, 2010 08:37 AM QUIT TOBACCO USE > 7 YEARS AGO stopped tobacco 30 years ago [facility] Advance Directives: All historical and current Section Date Range: From patient's date of to the date document was created. This section includes ALL of a patient's completed or amended [place] Advance and Rescinded Directives. The entries below indicate that a directive exists for the patient, but an actual copy is not included with this document. The data comes from all [facility]. Date Advance Directives Provider Source November 19, 2017 ADVANCE DIRECTIVE [facility] [place] Encounter Notes: All associated encounter notes This section contains the clinical notes associated to the Encounter. Date/Time Encounter Note(s) Provider Source December 02, 2023 09:52 AM ADDENDUM: LOCAL TITLE: Addendum STANDARD TITLE: ADDENDUM DATE OF NOTE: DECEMBER 02, 2023@09:52:40 ENTRY DATE: DECEMBER 02, 2023@09:52:41 AUTHOR: FIDENCIO RUSH EXP COSIGNER: URGENCY: STATUS: COMPLETED Please notify patient of lab results: A1c is 6.4, was 6.2. Cholesterol is minimally elevated. All other labs, including bleeding times, are normal /harvey/ JARRED MIDDLETON CERTIFIED NURSE PRACTITIONER Signed: 12/02/2023 09:53 Receipt Acknowledged By: 12/02/2023 14:33 /harvey/ SILVIA OLSON RN PRIMARY CARE RN --- Original Document --- 11/27/23 NURSE PRACTIONER/SICK VISIT: SICK CALL VISIT THOMAS GERMAN is a 73 y/o WHITE MALE who presents to [facility] sick call with c/o Bruises easily x years. Not on ASA, Plavix or blood thinner. Has fallen once but not a frequent micki. States any slight bump causes significant bruising. Medications reviewed. Hx anemia, on B12 and Fe+, no recent CBC on chart. [facility] PCP: ======= HIPOLITO HECK VITAL SIGNS: Temperature 97.6 F [36.4 C] (11/27/2023 09:45) Blood Pressure 130/77 (11/27/2023 09:45) Pulse 76 (11/27/2023 09:45) Respiration 18 (03/13/2022 13:11) Pain 0 (03/13/2022 13:11) BMI BMI: 28.8 Weight 178 lb [80.74 kg] (11/04/2023 08:32) Pulse Oximetry 94% (11/27/2023 09:45) REVIEW OF SYSTEMS: see HPI PHYSICAL EXAMINATION: General: Well-appearing [place] in no obvious distress. Mental Status: Alert and oriented x4. Neck: Supple. No lymphadenopathy. Thyroid unremarkable. Lungs: CTAB. Normal chest excursion. Eupneic respirations. CV: Heart tones S1, S2. RRR. No M/G/R. GI: Abdomen is soft and nontender. No palpable mass or organomegaly. Integument: multiple ecchymotic areas BUE Psych: Normal mood and affect. Normal judgment. Cooperative with exam, follows commands. ASSESSMENT/PLAN: 1. bruises easily - no definite medications seen as cause. Labs checked, including anemia profile, PTT, vitamin K level 2. ecchymosis - see above. MEDICATIONS reviewed with FOLLOW UP: Return to clinic 3-5 days if no improvement in symptoms. UPCOMING APPOINTMENTS: No data available /harvey/ JARRED MIDDLETON CERTIFIED NURSE PRACTITIONER Signed: 11/27/2023 10:41 FIDENCIO RUSH [facility] November 27, 2023 09:51 AM NURSE PRACTITIONER NOTE: LOCAL TITLE: NURSE PRACTIONER/SICK VISIT STANDARD TITLE: NURSE PRACTITIONER NOTE DATE OF NOTE: NOVEMBER 27, 2023@09:51 ENTRY DATE: NOVEMBER 27, 2023@09:51:25 AUTHOR: FIDENCIO RUSH EXP COSIGNER: URGENCY: STATUS: COMPLETED NURSE PRACTIONER/SICK VISIT Has ADDENDA SICK CALL VISIT THOMASOLVIN GERMAN is a 73 y/o WHITE MALE who presents to [facility] sick call with c/o Bruises easily x years. Not on ASA, Plavix or blood thinner. Has fallen once but not a frequent micki. States any slight bump causes significant bruising. Medications reviewed. Hx anemia, on B12 and Fe+, no recent CBC on chart. [place] PCP: ======= HIPOLITO HECK VITAL SIGNS: Temperature 97.6 F [36.4 C] (11/27/2023 09:45) Blood Pressure 130/77 (11/27/2023 09:45) Pulse 76 (11/27/2023 09:45) Respiration 18 (03/13/2022 13:11) Pain 0 (03/13/2022 13:11) BMI BMI: 28.8 Weight 178 lb [80.74 kg] (11/04/2023 08:32) Pulse Oximetry 94% (11/27/2023 09:45) REVIEW OF SYSTEMS: see HPI PHYSICAL EXAMINATION: General: Well-appearing in no obvious distress. Mental Status: Alert and oriented x4. Neck: Supple. No lymphadenopathy. Thyroid unremarkable. Lungs: CTAB. Normal chest excursion. Eupneic respirations. CV: Heart tones S1, S2. RRR. No M/G/R. GI: Abdomen is soft and nontender. No palpable mass or organomegaly. Integument: multiple ecchymotic areas BUE Psych: Normal mood and affect. Normal judgment. Cooperative with exam, follows commands. ASSESSMENT/PLAN: 1. bruises easily - no definite medications seen as cause. Labs checked, including anemia profile, PTT, vitamin K level 2. ecchymosis - see above. MEDICATIONS reviewed with FOLLOW UP: Return to clinic 3-5 days if no improvement in symptoms. UPCOMING APPOINTMENTS: No data available /harvey/ JARRED MIDDLETON CERTIFIED NURSE PRACTITIONER Signed: 11/27/2023 10:41 12/02/2023 ADDENDUM STATUS: COMPLETED Please notify patient of lab results: A1c is 6.4, was 6.2. Cholesterol is minimally elevated. All other labs, including bleeding times, are normal /harvey/ JARRED MIDDLETON CERTIFIED NURSE PRACTITIONER Signed: 12/02/2023 09:53 Receipt Acknowledged By: 12/02/2023 14:33 /harvey/ SILVIA OLSON RN PRIMARY CARE RN 12/02/2023 ADDENDUM STATUS: COMPLETED spoke with [place] and updated on labs per SPEECH THERAPY ASSISTANT note. /robert OLSON RN PRIMARY CARE RN Signed: 12/02/2023 14:34 FIDENCIO RUSH [facility]
--- OUTSIDE RECORDS SUMMARY | 2024-09-10 11:33 | XMS_ITS ---
Author Name [facility] [place] [facility] Address [address] [place] [address] Care Team Providers Care Control Manager Name Role Phone FIDENCIO RUSH Primary Care [...] Name Patient's Relationship to Policy Harden [employer] [facility] ([place]) MEDIC[place] ADVANTAGE [place] IDUAL - [place] Oct 21, 2023 [id number] [phone] Thelma GERMAN PATIENT [facility] ([place]NR) MEDICARE ADVANTAGE [facility] ([facility] Jul 22, 2020 [id number] Thelma GERMAN PATIENT MEDICAID [facility]ICAID [facility] Jul 22, 2012 MEDICAI D [id number] ONDINAThelma ANGEL PATIENT Selected Encounter This section includes the information on record at [place] for the Encounter. Date/Time Encounter Type Encounter Description Reason Pro vider Source Oct 13, 2023 07:45 PM Outpatient Encounter ADMIN PAT ACTIVTIES (MASNONCT) I[facility] Encounter Template Text not used by [place] Plan of Treatment: Future Appointments (+ 6 months) and Future Tests (+/- 45 days) The Plan of Treatment section includes future care activities for the patient from all [place] treatmentfacilities. This section includes future appointments and future orders which are active, pending or scheduled. Future Appointments This section includes appointments that were scheduled to occur 6 months from the date of the Encounter, up to a maximum of 20 appointments. The data comes from all [place] treatment facilities. Appointment Date/Time Appointment Type Appointme nt Facility Name Nov 04, 2023 08:30 AM AMBULATORY - MEDICINE [facility] November 27, 2023 09:00 AM AMBULATORY - MEDICINE [facility] November 27, 2023 09:15 AM [facility]BULATORY - MEDICINE [facility] December 02, 2023 10:00 AM [facility] December 10, 2023 02:15 PM [facility] Jan 28, 2024 01:00 PM AMBULATORY - MEDICINE [facility] Lab Results: +/- 30 days of the [...] Result - Unit Interpretation Reference Range Comment Nov 04, 2023 09:10 AM [facility] VITAMIN D 25-OH (Therapy monitor) Speci men [...] For additional information, please refer to http://education [email or web address] [employer].The Point/faq/CTF775 (This link is being provided for informational/ educational purposes only.) This test was developed and its analytical performance characteristics have been determined by [employer] [place] [place]. It has not been cleared or approved by the U.S. Food and Drug Administration. This assay has been validated pursuant to the CLIA regulations and is used for clinical purposes. This test was developed and its analytical performance characteristics have been determined by [employer] [place] [place]. It has not been cleared or approved by the U.S. Food and Drug Administration. This assay has been validated pursuant to the CLIA regulations and is used for clinical purposes. Test Performed by [facility], [employer] [facility], [address] [place] [address] Thomas Pinzon M.D., Ph.D., Director of Laboratories , CLIA [id number] TEST PERFORMED AT: , Ordering Provider: HIPOLITO HECK Report Released Date/Time: Sep 26, 2023 09:36 AM Reporting Lab: [address] [address] Performing Lab: [facility] [address] [address] VITAMIN D, 25-OH, TOTAL 41 ng/mL 30-100 VITAMIN D, 25-OH, D3 41 ng/mL VITAMIN D, 25-OH, D2 <4 ng/mL Nov 04, 2023 09:10 AM [place] BASIC METABOLIC PANEL (fasting) Specime n Type: SERUM No comment entered. Ordering Provider: HIPOLITO HECK Report Released Date/Time: Sep 26, 2023 09:36 AM Reporting Lab: [address] [address] Performing Lab: [address] [address] UREA NITROGEN 13 mg/dL 7-25 GLUCOSE 153 mg/dL H 65-100 SODIUM 138 mmol/L 135-145 POTASSIUM 4.2 mmol/L 3.5-5.0 CHLORIDE 104 mmol/L 100-110 CO2 23 meq/L 20-30 CREATININE, Serum 1.37 mg/dL 0.50-1.40 eGFR(CKD-EPI 2020) 54 mL/min L >60 Nov 04, 2023 09:10 AM [place] HEMOGLOBIN A1C PANEL Specimen Type: BLOOD Comment: [...] Sep 26, 2023 09:36 AM Reporting Lab: [facility] [address] [facility] [address] Performing Lab: [facility] [address] [facility] [address] HEMOGLOBIN A1C 6.4 H 4.0-5.6 Nov 04, 2023 09:10 AM [place] VITAMIN B12 Specimen Type: SERUM No comment entered. Ordering Provider: HIPOLITO HECK Report Released Date/Time: Sep 26, 2023 09:36 AM Reporting Lab: [facility] [address] [facility] [address] Performing Lab: [facility] [address] [address] VITAMIN B12 779 pg/mL 200-900 Nov 04, 2023 09:10 AM [place] LIPID PANEL FASTING Specimen Type: SERUM No comment entered. Ordering Provider: HIPOLITO HECK Report Released Date/Time: Sep 26, 2023 09:36 AM Reporting Lab: [facility] [address] [facility] [address] Performing Lab: [facility] [address] CHOLESTEROL 224 mg/dL H TRIGLYCERIDE 154 mg/dL H 0-150 LDL calculated 146 mg/dL H 0-129 CHOL/HDL 4.8 HDL CHOLESTEROL 47 mg/dL 40-60 Nov 04, 2023 09:10 AM [place] LIVER FUNCTION Specimen Type: SERUM No comment entered. Ordering Provider: HIPOLITO HECK Report Released Date/Time: Sep 26, 2023 09:36 AM Reporting Lab: [facility] [address] [facility] [address] Performing Lab: [facility] [address] PROTEIN,TOTAL 7.1 g/dL 6.0-8.3 ALBUMIN 3.9 g/dL 3.5-5.0 ALKALINE PHOSPHATASE 75 U/L 40-150 AST 9 U/L 5-34 ALT 11 U/L BILIRUBIN, TOTAL 0.7 mg/dL 0.2-1.2 Advance Directives: All historical and current Section [...] November 19, 2017 ADVANCE DIRECTIVE CRYSTAL BYERS IE Encounter Notes: All associated encounter notes This section contains the clinical notes associated to the Encounter. Date/Time Encounter Note(s) Provider Source Oct 13, 2023 07:45 PM ADMINISTRATIVE NOT E: LOCAL TITLE: CCC: SCHEDULING ADMINISTRATION STANDARD TITLE: ADMINISTRATIVE NOTE DATE OF NOTE: OCT 13, 2023@19:45 ENTRY DATE: OCT 13, 2023@19:45:24 AUTHOR: LEILA MCQUEEN EXP COSIGNER: URGENCY: STATUS: COMPLETED Verify Appointment Action(s) Completed: Successfully verified appointment(s) /es/ LEILA MCQUEEN VISN 2 [facility] AMSA Signed: 10/13/2023 19:45 LEILA MCQUEEN [place] [facility]
[2024-09-10 18:19] LABS: Anion Gap 15 (12-20); Blood Urea Nitrogen 19 mg/dL (9-16); Carbon Dioxide 24 mmol/L (22-29); Chloride 107 mmol/L (96-108); Estimated Glomerular Filt Rate 50; Potassium 4.4 mmol/L (3.3-5.1); Sodium 142 mmol/L (135-145)
== END 2024-09-10 10:24 | disposition home or self-care (01) ==
LOC: HO.HKASLDS 10:23
PROVIDERS: Visit Provider Internal Medicine Nephrology
DX: N20.0 Calculus of kidney (principal); I10 Essential (primary) hypertension; N18.31 Chronic kidney disease, stage 3a
CPT/HCPCS: 36415; 80051; 82565; 84520

== ENCOUNTER 2024-09-17 10:15 | Outpatient (AMB) | payer OTHER, SELFPAY ==
--- NOTE | 2024-09-17 10:43 | HO.NEPHOV ---
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 His blood sugar control is optimal. He follows up with Urology for his renal stone disease. He denies any nausea, vomiting, diarrhea hematuria, chest pain, shortness of, pedal edema or orthostatic symptoms. [facility] He maintains good hydration and avoids nonsteroidal anti-inflammatories. There were no new active issues at the time [facility] Medical History (Updated 12/10/23 @ 14:32 by Ramy Diaz MD) Essential (primary) hypertension Chronic kidney disease, stage 3a Renal stone Surgical History H/O hemorrhoidectomy H/O colonoscopy Family History Mother Cancer Father Heart disease Brother Heart disease Social History Alcohol intake: never Patient Tobacco Use Status: Former Tobacco user Review of Systems Const All systems reviewed & are unremarkable except as noted in HPI and below Physical Exam Vital Signs: Last Vital Signs Pulse 53 09/17/24 10:45 BP 134/70 09/17/24 10:45 Pulse Ox 99 09/17/24 10:45 Oxygen Delivery Method Room Air 09/17/24 10:45 BMI result Body Mass Index 28.1 Const General: comfortable and no acute distress Orientation/consciousness: patient oriented x3 HEENT Head: Yes normocephalic Mouth: Normal oral and palatal mucosa present Eyes EOM: EOMs intact bilaterally Neck Neck: Yes supple Resp Auscultation: clear to auscultation bilaterally Cardio Jugular venous distension: no JVD Rate: regular rate GI Palpation (GI): Soft to palpation Auscultation: normal bowel sounds General: Yes no CVA tenderness Back/Spine/Pelvis Back: no CVA tenderness Skin General skin exam: no rashes or lesions noted Neuro General: patient oriented x3 and moves all extremities Extrem General: Yes no pedal edema Results Reviewed Nephrology Results: Hgb 12.5 g/dl (14.0-18.0) L 03/25/24 WBC 5.2 X10*3/uL (4.8-10.8) 03/25/24 Plt Count 211 X10*3/uL (160-400) 03/25/24 Sodium 142 mmol/L (135-145) 09/10/24 Potassium 4.4 mmol/L (3.3-5.1) 09/10/24 Chloride 107 mmol/L (96-108) 09/10/24 Carbon Dioxide 24 mmol/L (22-29) 09/10/24 BUN 19 mg/dL (9-16) H 09/10/24 Creatinine 1.39 mg/dL (0.5-1.4) 09/10/24 Calcium 9.2 mg/dL (8.4-10.2) 03/25/24 Urine Creatinine 188.73 mg/dL 03/25/24 Protein/Creatinin Ratio 0.12 (<0.2) 03/25/24 Assessment & Plan Assessment & Plan (1) Chronic kidney disease, stage 3a: Code(s): N18.31 - Chronic kidney disease, stage 3a Category: Medical (2) Essential (primary) hypertension: Code(s): I10 - Essential (primary) hypertension Category: Medical (3) Renal stone: Code(s): N20.0 - Calculus of kidney Category: Medical Plan Thomas has CKD stage 3 at baseline. His renal functions had been stable. He avoids nonsteroidal anti-inflammatories. His blood pressure has been at goal. He should maintain better blood sugar control. He was encouraged to maintain good hydration and avoid nonsteroidal anti-inflammatories. I did not make any medication changes today but rather ordered follow-up blood work and urine studies. Answered all questions. Follow-up appointment given. Orders: Orders Electrolytes 6 Months I10 - Essential (primary) hypertension, N18.31 - Chronic kidney disease, stage 3a, N20.0 - Calculus of kidney Protein Creatinine Ratio, Ur 6 Months I10 - Essential (primary) hypertension, N18.31 - Chronic kidney disease, stage 3a, N20.0 - Calculus of kidney Creatinine 6 Months I10 - Essential (primary) hypertension, N18.31 - Chronic kidney disease, stage 3a, N20.0 - Calculus of kidney Blood Urea Nitrogen 6 Months I10 - Essential (primary) hypertension, N18.31 - Chronic kidney disease, stage 3a, N20.0 - Calculus of kidney Coding Level of Care Code Est Pt Level 4 (87054) Diagnoses Chronic kidney disease, stage 3a N18.31 Essential (primary) hypertension I10 Renal stone N20.0
[2024-09-17 10:45] VITALS: BP 134/70; PULSE 53; O2SAT 99; BMI 28.1
--- OUTSIDE RECORDS SUMMARY | 2024-09-17 11:54 | XMS_ITS | Clinical Summary ---
Author Organization [facility] Address [address] [facility] [address] [place] [address] Phone Care Team Providers Care Manager Safe Name Role Phone Sonali Arnett MD Primary Care Provider [phone] Allergies No known active allergies Medications metFORMIN (GLUCOPHAGE) 500 MG tablet Take 1 tablet by mouth 1 (one) time each day with breakfast Active simvastatin (ZOCOR) 80 MG tablet Take 1 tablet by mouth 1 (one) time each day Active mesalamine (LIALDA) 1.2 g EC tablet Take 1,200 mg by mouth 1 (one) time each day Do not crush, chew, or split. Active chlorthalidone 25 MG tablet Take 0.5 tablets (12.5 mg total) by mouth 1 (one) time each day 45 tablet 3 Active potassium chloride (KLOR-CON) 20 MEQ packet Take 10 mEq by mouth 1 (one) time each day Active cholecalciferol (VITAMIN D-3 SUPER STRENGTH) 50 MCG (2000 UT) tablet Take 2,000 Units by mouth 1 (one) time each day Active insulin aspart (NovoLOG) 100 UNIT/ML injection Inject under the skin 3 (three) times a day before meals Active Active Problems Problem Noted Date Diagnosed Date Bilateral cataracts 04/02/2022 Depressive disorder 04/02/2022 Hyperlipidemia 04/02/2022 Ischemic heart disease 04/02/2022 Obesity 04/02/2022 Polyp of colon 04/02/2022 Type 2 diabetes mellitus 04/02/2022 Ulcerative colitis 04/02/2022 Acute nontraumatic kidney injury 10/17/2020 Stage 3a chronic kidney disease 10/17/2020 Essential hypertension 10/17/2020 Renal stone 10/17/2020 Family History Medical History Relation Comments Heart disease Brother Heart disease Father Cancer Mother Kidney disease Sibling Brother Rick Relation Status Comments Brother Father Mother Sibling Social History Tobacco Use Types Packs/Day Years Used Date Smoking Tobacco: Never Smokeless Tobacco: Never Alcohol Use Standard Drinks/Week Comments No 0 (1 standard drink = 0.6 oz pur e alcohol) Sex and Gender Information Value Date Recorded Sex Assigned at Not on file Legal Sex Male 4:56 PM EST Gender Identity Not on file Sexual Orientation Not on file Last Filed Vital Signs Vital Sign Reading Time Taken Comments Blood Pressure 100/60 09/04/2021 1:26 PM EST Pulse 84 09/04/2021 1:26 PM EST Temperature - - Respiratory Rate - - Oxygen Saturation 98% 09/04/2021 1:26 PM EST Inhaled Oxygen Concentration - - Weight 68.6 kg (151 lb 3.2 oz) 09/04/2021 1:26 P M EST Height - - Body Mass Index - - Plan of Treatment Health Maintenance Due Date Last Done Comments Pneumococcal Vaccine: 65+ Ye ars (1 of 2 - PCV) 1957 Colorectal Cancer Screening: Annual FOBT 2000 Colorectal Cancer Screening: Colonoscopy 2000 Colorectal Cancer Screening: Sigmoidoscopy 2000 Diabetes: Hemoglobin A1C 09/04/2021 10/27/2019 Diabetes: Ophthalmology Exam 09/04/2021 Diabetes: Pedal Pulse Checked 09/04/2021 Diabetes: Sensory Foot Exam 09/04/2021 Diabetes: Visual Foot Exam 09/04/2021 Influenza Vaccine (#1) 2024 Hepatitis B Vaccine Aged Out No longe r eligible based on patient's age to complete this topic Procedures Procedure Name Priority Date/Time Associated Diagnosis Comments BLOOD PANEL (HC) Routine 10/27/2019 12:0 0 AM EDT from Last 3 Months or Most Recently Relevant to Health Maintenance Results * (ABNORMAL) Blood Panel (10/27/2019 12:00 AM EDT) Potassium 4.5 3.5 - 5.1 mmol/L [facility] LDL,Direct 79 <130 mg/dl [facility] Hematocrit 38.0 38 - 50 % [facility] BUN 14 9 - 20 mg/dl [facility] Cholesterol 145 <200 mg/dl [facility] Hemoglobin A1C 7.6(H) <5 % [facility] Carbon Dioxide (CO2) 22 22 - 30 mmol/L [facility] HDL 38(L) >40 mg/dl [facility] Sodium 139 137 - 145 mmol/L [facility] Creatinine 1.26 0.70 - 1.30 mg/dl [facility] eGFR Non- 57(L) >60 ml/min [facility] Triglycerides 139 <150 mg/dl [facility] Hgb 12.8(L) 13.0 - 16.5 g/dl [facility] Platelets 232 140 - 440 k/uL [facility] 10/27/2019 us [facility] Conversion [facility] [id number] LICITED RESULTS Final Result [facility] from Last 3 Months or Most Recently Relevant to Health Maintenance Insurance [employer] 1,2,3 (VACCN) [employer] 1,2,3 (VACCN) Care Teams Manager Safe Relationship Specialty Start Date End Date Sonali Arnett MD [address] [facility] [place] PCP - General 08/01/20
--- OUTSIDE RECORDS SUMMARY | 2024-09-17 11:54 | XMS_ITS | Continuity of Care Document ---
Author Name [facility] Organization [facility] Care Team Providers Care Manufacturing Tech Name Role Phone [facility] Unavailable Unavailable Problems Combined list of problems from Department of Defense and Veterans Affairs facilities. It does not include entries that were removed or entered in error. Problem Status Onset Date Problem Type Date of Resolution Comments Source PEDOPHILIA Inactive 969 Condition 03/12/2012 Mar 12, 2012 Entered By: ASHLEY SPEARS Comment: Reports no current urges or activity [place] Allergic Rhinitis (SCT 27156049) Active Condition [place] [facility] Anaemia Active Condition Jun 19 Entered By: FIDENCIO RUSH Comment: 01/20/24 HGB 11.4Dec 2023 Entered By: FIDENCIO RUSH Comment: 06/22/24 HGB 11.4 [place] CKD stage 3 Active Condition Jun 19, 2024 Entered By: FIDENCIO RUSH Comment: 01/20/24 GFR 57Dec 2023 Entered By: FIDENCIO RUSH Comment: 06/22/24 GFR 53 [facility] Depression Active Condition [place] Diabetes mellitus type 2 Active Condition Aug 17, 2016 Entered By: BARB DE LOS SANTOS Comment: Diagnosed via HbA1c in July Entered By: FIDENCIO RUSH Comment: 01/20/24 A1c 6.0Dec 2023 Entered By: FIDENCIO RUSH Comment: 06/22/24 A1c 5.8 ID [facility] [place] [facility] Family medical history Active Condition Apr 14, 2010 Entered By: NIKO GARRIDO Comment: CAD [place] History of surgery Active Condition Jun 19, 2024 Entered By: FIDENCIO RUSH Comment: bilateral cataract extractionJun 19, 2024 Entered By: FIDENCIO RUSH Comment: excision BCC 2009Jun 19, 2024 Entered By: FIDENCIO RUSH Comment: hemorrhoidectomy [place] Hypertension (SNOMED CT 21118650) Active Condition [place] Mild cognitive impairment Active Condition Jun 30, 2024 Entered By: FIDENCIO RUSH Comment: lives alone, independent with ADL, IADL [facility] [place] [facility] Mixed hyperlipidaemia [facility] [place] Pes planus Active Condition [place] Screening for malignant neoplasm of colon done Active Condition Jan 01, 2012 Entered By: NIKO GARRIDO Comment: 11-23-11: Polypectomy x 2: Tubular AdenomaJan 01, 2012 Entered By: NIKO GARRIDO Comment: Repeat Colonoscopy 5 yearsFe2022 Entered By: JAKY ISSA Comment: Sigmoidoscopy 2023 Entered By: FIDENCIO RUSH Comment: LAST COLONOSCOPY 12/02/23 ( #9 polyps) at [facility] - repeat 2026 [place] Ulcerative colitis Active Condition Jun 30, 2024 Entered By: FDIENCIO RUSH Comment: followed by GI Dr. Begum [place] 1979: Left middle Finger Avulsion Inactive Condition 08/01/2021 [place] 2001: Colonoscopy: Normal Inactive Condition 08/01/2021 [place] 12-27-08:Excision Nodular Basal Carcinoma of Back Inactive Condition 08/01/2021 [facility] IELD Bereavement Inactive Condition 08/01/2021 Mar 03, 2012 Entered By: NIKO GARRIDO Comment: Sap Bobj Developer of 34 yrs 03-02-12 [place] Calculus of Kidney Inactive Condition 06/19/2024 [place] Fungal dermatitis Inactive Condition 06/19/2024 [place] Gross Hematuria Inactive Condition 08/01/2021 [facility] Hypokalaemia Inactive Condition 06/19/2024 [facility] Obesity Inactive Condition 08/01/2021 [facility] Other Malaise and Fatigue Inactive Condition 08/01/2021 [place] Other Seborrheic Keratosis Inactive Condition 06/19/2024 [place] Prediabetes Inactive Condition 08/17/2016 [facility] Proteinuria * (ICD-9-CM 791.0) Inactive Condition 06/19/2024 [facility] SRB: Cristel PAZ: SRB: [id number] Inactive Condition 08/01/2021 [place] Diagnosis: ICD-10-CM G31.84 Mild cognitive impairment of uncertain or unknown etiology Active Diagnosis [facility] Diagnosis: ICD-10-CM Z04.89 Encounter for examination and observation for oth reasons Active Diagnosis [facility] [place] [facility] Diagnosis: ICD-10-CM E78.5 Hyperlipidemia, unspecified Active Diagnosis [place] Diagnosis: ICD-10-CM T14.8XXA Other injury of unspecified body region, initial encounter Active Diagnosis [place] Diagnosis: ICD-10-CM Z91.81 History of falling Active Diagnosis [place] Diagnosis: ICD-10-CM E11.9 Type 2 diabetes mellitus without complications Active Diagnosis [place] Diagnosis: ICD-10-CM I10 Essential (primary) hypertension Active Diagnosis [place] Diagnosis: ICD-10-CM R05.9 Cough, unspecified Active Diagnosis [place] Diagnosis: ICD-10-CM Z46.0 Encounter for fit/adjst of spectacles and contact lenses Active Diagnosis [facility] [place] [facility] Diagnosis: ICD-10-CM Z23 Encounter for immunization Active Diagnosis [place] Medications Combined list of outpatient medications from [...] ORAL DISCONT INUED BY PROVIDE R 06/07/2024 [id number] 4 TIFFANY HECK RMDAWOOD F [address] [place] [address] IELD AMLODIPINE BESYLATE 2.5MG TAB TAKE ONE TABLET BY MOUTH ONCE DAILY FOR BLOOD PRESSURE /HEART, DO NOT TAKE WITH GRAPEFRU IT JUICE ORAL ACTIVE 06/27/2025 [id number] 4 Pineda RUSH 2023 90 [facility] IELD AMLODIPINE BESYLATE 2.5MG TAB TAKE ONE TABLET BY MOUTH ONCE DAILY FOR BLOOD PRESSURE /HEART, DO NOT TAKE WITH GRAPEFRU IT JUICE ORAL DISCONT INUED 01/28/2025 [id number] 4 TIFFANY HECK RMEN F 2023 90 [facility] IELD AMLODIPINE BESYLATE 2.5MG TAB TAKE ONE TABLET BY MOUTH ONCE DAILY FOR HIGH BLOOD PRESSURE FOR BLOOD PRESSURE /HEART, DO NOT TAKE WITH GRAPEFRU IT JUICE ORAL DISCONT INUED 05/17/2024 [id number] TIFFANY HECK F 2022 90 [place] ATORVASTATI N CA 40MG TAB TAKE ONE-HALF TABLET BY MOUTH AT BEDTIME FOR HIGH CHOLESTE ROL ORAL DISCONT INUED (EDIT) 12/14/2023 [id number] TIFFANY HECK F 2022 45 [place] ATORVASTATI N CA 80MG TAB TAKE ONE TABLET BY MOUTH AT BEDTIME FOR HIGH CHOLESTE ROL ORAL ACTIVE 01/28/2025 [id number] 4 TIFFANY HECK F 2023 90 [place] ATORVASTATI N CA 80MG TAB TAKE ONE-HALF TABLET BY MOUTH AT BEDTIME FOR HIGH CHOLESTE ROL WILL REPLACE THE 20 MG BY MOUTH AT BEDTIME ORAL DISCONT INUED (EDIT) 11/21/2024 [id number] 4 TIFFANY HECK F 2023 45 [place] BUDESONIDE 9MG TAB,SA TAKE ONE TABLET BY MOUTH EVERY MORNING FOR 2 MONTHS ORAL 06/24/2024 [id number] OTTO BEGUMIA 2022 30 [facility] CALCIUM 500MG/VITAM IN D 200UNT TAB TAKE 1 TABLET BY MOUTH ONCE DAILY ORAL ACTIVE 06/27/2025 [id number] 4 Pineda RUSH 2023 90 [place] CALCIUM 500MG/VITAM IN D 200UNT TAB TAKE 1 TABLET BY MOUTH ONCE DAILY ORAL DISCONT INUED 06/07/2024 [id number] 4 OTTO BEGUMIA 2022 60 [place] FLUTICASONE PROPIONATE 50MCG/SPRAY SOLN,NASAL, 16GM INSTILL 2 SPRAYS INTO EACH NOSTRIL ONCE DAILY FOR ALLERGIC RHINITIS NASAL DISCONT INUED BY PROVIDE R 12/01/2023 [id number] 4 TIFFANY HECK F 2022 3 [place] GLUCERNA THERAPEUTIC NUTRITION SHAKE LIQUID STRAWBERRY DRINK 1 CAN BY MOUTH TWICE DAILY FOR NUTRITIO NAL SUPPLEME NTATION ORAL ACTIVE 04/25/2025 [id number] 4 TIFFANY HECKEN F 2023 72 [place] SITAGLIPTIN (EQV-ZITUVI O) 100MG TAB TAKE ONE TABLET BY MOUTH ONCE DAILY THIS REPLACES ALOGLIPT IN ORAL ACTIVE 01/31/2025 [id number] 4 KRISTINA LOPEZ 2023 90 [facility] USTEKINUMAB 90MG/ML INJ,SYR,1ML INJECT 90MG (1ML) SUBCUTAN EOUSLY EVERY 8 WEEKS SUBCUT ANEOUS ACTIVE 07/22/2025 [id number] 5 OTTO BEGUM BI 2024 1 [place] USTEKINUMAB 90MG/ML INJ,SYR,1ML INJECT 90MG (1ML) SUBCUTAN EOUSLY EVERY 8 WEEKS SUBCUT ANEOUS DISCONT INUED 06/27/2025 [id number] 4 Pineda RUSH 2023 1 [place] USTEKINUMAB 90MG/ML INJ,SYR,1ML INJECT 90MG (1ML) SUBCUTAN EOUSLY EVERY 8 WEEKS SUBCUT ANEOUS DISCONT INUED 07/04/2024 [id number] SHYOTTO BI 2023 1 [place] USTEKINUMAB 90MG/ML INJ,SYR,1ML INJECT 90MG (1ML) SUBCUTAN EOUSLY EVERY 8 WEEKS SUBCUT ANEOUS DISCONT INUED 11/22/2023 [id number] 3 ERIOTTO Junior BI 2022 1 [facility] Allergies, Adverse Reactions, Alerts Combined list of allergies from Department of Defense and Veterans Affairs facilities. It does not include entries that were removed or entered in error. Substance Category Reaction Severity Reaction type Status Date Reported Comments Source METFORMIN Propensity to adverse reactions to drug (finding) active 1 [facility] Immunizations Combined list of available immunizations from the Department of Defense and Veterans Affairs facilities. Immunization Series Date Given Administered By Site Reaction Lot Number CVX Code Drug Dock Or Pier Laborer Status Comments Source INFLUENZA, UNSPECIFIED FORMULATION 2023 88 complet ed [facility] provided vaccine [facility] INFLUENZA, UNSPECIFIED FORMULATION 2023 88 complet ed [facility] COVID-19 (MODERNA), MRNA, LNP-S, PF, 50 MCG/0.5 ML (AGES 12+ YEARS) 1 2022 RAFAEL STILES RIGHT DELTO ID [id number] 312 complet ed [facility] IELD INFLUENZA, HIGH-DOSE, QUADRIVALENT 2022 ESCOBAR LIVE LEFT DELTO ID [id number] 197 complet ed [facility] IELD COVID-19 (MODERNA), MRNA, LNP-S, BIVALENT BOOSTER, PF, 50 MCG/0.5 ML OR 25MCG/0.25 ML DOSE 5 2022 ALBINA MARTINEZ RIGHT DELTO ID [id number] 229 complet ed [facility] IELD INFLUENZA, INJECTABLE, QUADRIVALENT, PRESERVATIVE FREE 2022 ARSH PARRISH LEFT DELTO ID [id number] 150 complet ed [facility] IELD COVID-19 (MODERNA), MRNA, LNP-S, PF, 100 MCG/0.5ML DOSE OR 50 MCG/0.25ML DOSE 3 2021 207 complet ed MOD; [id number]; 2 [facility] IELD COVID-19 (MODERNA), MRNA, LNP-S, PF, 100 MCG OR 50 MCG DOSE 3 2021 207 complet ed MOD; [id number]; 2 [facility] IELD INFLUENZA VACCINE, QUADRIVALENT, ADJUVANTED 2020 205 complet ed [place] TDAP 2020 115 complet ed [facility] IELD COVID-19 (MODERNA), MRNA, LNP-S, PF, 100 MCG/0.5 ML DOSE 2 2020 207 complet ed MOD; [id number]; 1 [facility] IELD COVID-19 (MODERNA), MRNA, LNP-S, PF, 100 MCG/0.5 ML DOSE 1 2020 207 complet ed MOD; [id number]; 1 [place] INFLUENZA, SEASONAL, INJECTABLE 2018 141 complet ed [facility] INFLUENZA, INJECTABLE, [...] Mar 30, 2024 07:54 AM Reporting Lab: [facility]OSPITALTRN [address] [address] Performing Lab: [facility]OSPITALRL TRN [facility]USE[address] [address] [place] TSH THYROTROPIN [UNITS/VOLU ME] IN SERUM OR PLASMA 1.83 u[IU]/ mL 0.35 - 5.00 06/22 Specimen Type: SERUM No comment entered. Ordering Provider: YUMIKO HECK Report Released Date/Time: Mar 30, 2024 07:54 AM Reporting Lab: [facility]ITALRGREIL [facility]ATR[facility] HOSPITALTRN [address] [address] Performing Lab: [facility]PITALRST. [facility]INCENT[facility]N [address] [address] [place] BASIC METABOLIC PANEL (fasting) UREA NITROGEN [MASS/VOLUM E] IN SERUM OR PLASMA 20 mg/dL 7 - 25 06/22 Specimen Type: SERUM No comment entered. Ordering Provider: YUMIKO HECK Report Released Date/Time: Mar 30, 2024 07:54 AM Reporting Lab: [facility]ITALRL TRN [address] [address] Performing Lab: [facility]ITALRL TRN [address] [address] [place] BASIC METABOLIC PANEL (fasting) GLUCOSE [MASS/VOLUM E] IN SERUM OR PLASMA 137 mg/dL 65 - 100 06/22 H Specimen Type: SERUM No comment entered. Ordering Provider: YUMIKO HECK Report Released Date/Time: Mar 30, 2024 07:54 AM Reporting Lab: [facility]ITALRGREIL [facility]AT[facility] HOSPITALTRN [address] [address] Performing Lab: [facility]ITALRST. [facility]INCENT[facility] E[facility]N [address] [address] [place] BASIC METABOLIC PANEL (fasting) SODIUM [MOLES/VOLU ME] IN SERUM OR PLASMA 140 mmol/L 135 - 145 06/22 Specimen Type: SERUM No comment entered. Ordering Provider: YUMIKO HECK Report Released Date/Time: Mar 30, 2024 07:54 AM Reporting Lab: [facility]OSPITALRL WSTRN [facility]ITALUS[facility] [address] [facility] [address] Performing Lab: [facility]ITALRL WSTRN [facility] HOSPITALUSETS [address] [address] [place] BASIC METABOLIC PANEL (fasting) POTASSIUM [MOLES/VOLU ME] IN SERUM OR PLASMA 4.5 mmol/L 3.5 - 5.0 06/22 Specimen Type: SERUM No comment entered. Ordering Provider: YUMIKO HECK Report Released Date/Time: Mar 30, 2024 07:54 AM Reporting Lab: [facility]ITALRL TRN [address] [address] Performing Lab: [facility]ITALRL TRN [facility]ITALUSE[address] [address] [place] BASIC METABOLIC PANEL (fasting) CHLORIDE [MOLES/VOLU ME] IN SERUM OR PLASMA 106 mmol/L 100 - 110 06/22 Specimen Type: SERUM No comment entered. Ordering Provider: YUMIKO HECK Report Released Date/Time: Mar 30, 2024 07:54 AM Reporting Lab: [facility]ITALRL TRN [address] [address] Performing Lab: [facility]ITALRL TRN [facility]USE[address] [address] [place] BASIC METABOLIC PANEL (fasting) CARBON DIOXIDE, TOTAL [MOLES/VOLU ME] IN SERUM OR PLASMA 24 meq/L 20 - 30 06/22 Specimen Type: SERUM No comment entered. Ordering Provider: YUMIKO HECK Report Released Date/Time: Mar 30, 2024 07:54 AM Reporting Lab: [facility]ITALRL WSTRN [facility]ITALUSE[address] [address] Performing Lab: [facility]OSPITALRGREIL MEMOR[facility] PSYCHIATRIC HOSPITALTRN [facility]ITALUSE[address] [address] [place] BASIC METABOLIC PANEL (fasting) CREATININE [MASS/VOLUM E] IN SERUM OR PLASMA 1.41 mg/dL 0.50 - 1.40 06/22 H Specimen Type: SERUM No comment entered. Ordering Provider: YUMIKO HECK Report Released Date/Time: Mar 30, 2024 07:54 AM Reporting Lab: [facility] [address] [address] Performing Lab: [facility] [address] [address] [place] BASIC METABOLIC PANEL (fasting) GLOMERULAR FILTRATION RATE/1.73 SQ M.PREDICTED [VOLUME RATE/AREA] IN SERUM, PLASMA OR BLOOD BY CREATININE- BASED FORMULA (CKD-EPI 2020) 53 mL/min 60 06/22 L Specimen Type: SERUM No comment entered. Ordering Provider: YUMIKO HECK Report Released Date/Time: Mar 30, 2024 07:54 AM Reporting Lab: [facility] [address] [address] Performing Lab: [address] [address] [place] LIPID PANEL FASTING CHOLESTEROL [MASS/VOLUM E] IN SERUM OR PLASMA 161 mg/dL 06/22 Specimen Type: SERUM No comment entered. Ordering Provider: YUMIKO HECK Report Released Date/Time: Mar 30, 2024 07:54 AM Reporting Lab: [address] [address] Performing Lab: [facility] [address] [address] [place] LIPID PANEL FASTING TRIGLYCERID E [MASS/VOLUM E] IN SERUM OR PLASMA 74 mg/dL 0 - 150 06/22 Specimen Type: SERUM No comment entered. Ordering Provider: YUMIKO HECK Report Released Date/Time: Mar 30, 2024 07:54 AM Reporting Lab: [facility] [address] [address] Performing Lab: [address] [address] [place] LIPID PANEL FASTING CHOLESTEROL IN LDL [MASS/VOLUM E] IN SERUM OR PLASMA BY CALCULATION 101 mg/dL 0 - 129 06/22 Specimen Type: SERUM No comment entered. Ordering Provider: YUMIKO HECK Report Released Date/Time: Mar 30, 2024 07:54 AM Reporting Lab: [facility]ITALRGREIL [facility]CHIATR[facility] HOSPITALTRN [address] [address] Performing Lab: [facility]OSPITALRST. VINCENT'[facility] EASTN [facility]ITALUSE[address] [address] [place] LIPID PANEL FASTING CHOLESTEROL .TOTAL/CHOL ESTEROL IN HDL [MASS RATIO] IN SERUM OR PLASMA 3.6 06/22 Specimen Type: SERUM No comment entered. Ordering Provider: YUMIKO HECK Report Released Date/Time: Mar 30, 2024 07:54 AM Reporting Lab: [facility] [address] [address] Performing Lab: [facility] [address] [address] [place] LIPID PANEL FASTING CHOLESTEROL IN HDL [MASS/VOLUM E] IN SERUM OR PLASMA 45 mg/dL 40 - 60 06/22 Specimen Type: SERUM No comment entered. Ordering Provider: YUMIKO HECK Report Released Date/Time: Mar 30, 2024 07:54 AM Reporting Lab: [facility] [address] [address] Performing Lab: [facility]ITALRST. VINCENT'[facility] EASTN [address] [address] [place] LIVER FUNCTION PROTEIN [MASS/VOLUM E] IN SERUM OR PLASMA 6.6 g/dL 6.0 - 8.3 06/22 Specimen Type: SERUM No comment entered. Ordering Provider: YUMIKO HECK Report Released Date/Time: Mar 30, 2024 07:54 AM Reporting Lab: [facility]ITALRGREIL [facility] PSYCHIATRIC HOSPITALTRN [facility]ITALUSE[address] [address] Performing Lab: [facility]ERN [facility]ITALUSE[address] [address] [place] LIVER FUNCTION ALBUMIN [MASS/VOLUM E] IN SERUM OR PLASMA 3.6 g/dL 3.5 - 5.0 06/22 Specimen Type: SERUM No comment entered. Ordering Provider: YUMIKO HECK Report Released Date/Time: Mar 30, 2024 07:54 AM Reporting Lab: [facility] [place] [facility] [address] [facility] [address] Performing Lab: [facility] [place] [facility] [address] [facility] [address] [place] LIVER FUNCTION ALKALINE PHOSPHATASE [ENZYMATIC ACTIVITY/VO LUME] IN SERUM OR PLASMA 78 U/L 40 - 150 06/22 Specimen Type: SERUM No comment entered. Ordering Provider: YUMIKO HECK Report Released Date/Time: Mar 30, 2024 07:54 AM Reporting Lab: [facility] [place] [facility] [address] [facility] [address] Performing Lab: [facility] [place] [address] [address] [place] LIVER FUNCTION ASPARTATE AMINOTRANSF ERASE [ENZYMATIC ACTIVITY/VO LUME] IN SERUM OR PLASMA 12 U/L 5 - 34 06/22 Specimen Type: SERUM No comment entered. Ordering Provider: YUMIKO HECK Report Released Date/Time: Mar 30, 2024 07:54 AM Reporting Lab: [facility] [place] [address] [address] Performing Lab: [facility] [place] [address] [address] [place] LIVER FUNCTION ALANINE AMINOTRANSF ERASE [ENZYMATIC ACTIVITY/VO LUME] IN SERUM OR PLASMA 15 U/L 06/22 Specimen Type: SERUM No comment entered. Ordering Provider: YUMIKO HECK Report Released Date/Time: Mar 30, 2024 07:54 AM Reporting Lab: [facility] [place] [address] [address] Performing Lab: [facility] [place] [address] [address] [place] LIVER FUNCTION BILIRUBIN.T OTAL [MASS/VOLUM E] IN SERUM OR PLASMA 0.5 mg/dL 0.2 - 1.2 06/22 Specimen Type: SERUM No comment entered. Ordering Provider: YUMIKO HECK Report Released Date/Time: Mar 30, 2024 07:54 AM Reporting Lab: [facility]ITAL[facility] [address] [facility] [address] Performing Lab: [facility]ITALRL TRN [facility]PITALUSETS [address] [address] [place] MICROALBU MIN CREATININ E RATIO PANEL MICROALBUMI N/CREATININ E [MASS RATIO] IN URINE 6.2 mg/g 0 - 29.9 06/22 Specimen Type: URINE No comment entered. Ordering Provider: YUMIKO HECK Report Released Date/Time: Mar 30, 2024 07:54 AM Reporting Lab: [facility]ITALRGREIL [facility]ATR[facility] HOSPITALTRN [address] [address] Performing Lab: [facility]ITALRGREIL [facility]CHIATR[facility] HOSPITALTRN [address] [address] [place] MICROALBU MIN CREATININ E RATIO PANEL MICROALBUMI N [MASS/VOLUM E] IN URINE 0.9 mg/dL 06/22 Specimen Type: URINE No comment entered. Ordering Provider: YUMIKO HECK Report Released Date/Time: Mar 30, 2024 07:54 AM Reporting Lab: [facility]ITALRST. [facility]INCENT[facility] EASTN [address] [address] Performing Lab: [facility]PITALRGREIL [facility]CHIATRIC HOSPITALTRN [address] [address] [place] MICROALBU MIN CREATININ E RATIO PANEL CREATININE [MASS/VOLUM E] IN URINE 146.34 mg/dL 06/22 Specimen Type: URINE No comment entered. Ordering Provider: YUMIKO HECK Report Released Date/Time: Mar 30, 2024 07:54 AM Reporting Lab: [facility]ITALRGREIL [facility]ATR[facility] HOSPITALTRN [address] [address] Performing Lab: [facility]PITALRST. VINCENT'[facility] EASTN [address] [address] [place] CBC AND DIFF (AUTO) LEUKOCYTES [#/VOLUME] IN BLOOD BY AUTOMATED COUNT 4.72 10*3/u L 4.50 - 11.00 06/22 Specimen Type: BLOOD No comment entered. Ordering Provider: YUMIKO HECK Report Released Date/Time: Mar 30, 2024 07:54 AM Reporting Lab: [facility]ITALRGREIL [facility]ATR[facility] HOSPITALTRN [address] [address] Performing Lab: [facility]PITALRST. VINCENT[facility]N [facility]ITALUSE[address] [address] [place] CBC AND DIFF (AUTO) ERYTHROCYTE S [#/VOLUME] IN BLOOD BY AUTOMATED COUNT 3.61 10*6/u L 4.23 - 5.66 06/22 L Specimen Type: BLOOD No comment entered. Ordering Provider: YUMIKO HECK Report Released Date/Time: Mar 30, 2024 07:54 AM Reporting Lab: [facility]ITALRST[facility]N [address] [address] Performing Lab: [facility] [address] [address] [place] CBC AND DIFF (AUTO) HEMOGLOBIN [MASS/VOLUM E] IN BLOOD 11.4 g/dL 12.8 - 17 06/22 L Specimen Type: BLOOD No comment entered. Ordering Provider: YUMIKO HECK Report Released Date/Time: Mar 30, 2024 07:54 AM Reporting Lab: [facility] [address] [address] Performing Lab: [facility]ITALRST. [facility]INC[facility]N [facility]PITALUSETS [address] [address] [place] CBC AND DIFF (AUTO) HEMATOCRIT [VOLUME FRACTION] OF BLOOD BY AUTOMATED COUNT 34.1 39.2 - 50.4 06/22 L Specimen Type: BLOOD No comment entered. Ordering Provider: YUMIKO HECK Report Released Date/Time: Mar 30, 2024 07:54 AM Reporting Lab: [facility] [address] [address] Performing Lab: [facility]USE[address] [address] [place] CBC AND DIFF (AUTO) MCV [ENTITIC VOLUME] BY AUTOMATED COUNT 94.5 fL 82 - 99 06/22 Specimen Type: BLOOD No comment entered. Ordering Provider: STELEA,YUMIKO EN F Report Released Date/Time: Mar 30, 2024 07:54 AM Reporting Lab: [facility]PITALRL WSTRN [facility]ITALUSETS [address] [address] Performing Lab: [facility] [place] [address] [address] [place] CBC AND DIFF (AUTO) MCHC [MASS/VOLUM E] BY AUTOMATED COUNT 33.4 g/dL 30.8 - 35.1 06/22 Specimen Type: BLOOD No comment entered. Ordering Provider: YUMIKO HECK EN F Report Released Date/Time: Mar 30, 2024 07:54 AM Reporting Lab: [facility] [address] [address] Performing Lab: [facility] [address] [place] CBC AND DIFF (AUTO) PLATELETS [#/VOLUME] IN BLOOD BY AUTOMATED COUNT 193 10*3/u L 140 - 360 06/22 Specimen Type: BLOOD No comment entered. Ordering Provider: YUMIKO HECK EN F Report Released Date/Time: Mar 30, 2024 07:54 AM Reporting Lab: [facility] [address] [address] Performing Lab: [facility] [address] [address] [place] CBC AND DIFF (AUTO) ERYTHROCYTE DISTRIBUTIO N WIDTH [RATIO] BY AUTOMATED COUNT 12.7 12.0 - 16.0 06/22 Specimen Type: BLOOD No comment entered. Ordering Provider: YUMIKO HECK EN F Report Released Date/Time: Mar 30, 2024 07:54 AM Reporting Lab: [facility] [address] [address] Performing Lab: [facility] [address] [address] [place] CBC AND DIFF (AUTO) MONOCYTES [#/VOLUME] IN BLOOD BY AUTOMATED COUNT 0.38 10*3/u L 0.30 - 1.10 06/22 Specimen Type: BLOOD No comment entered. Ordering Provider: YUMIKO HECK Report Released Date/Time: Mar 30, 2024 07:54 AM Reporting Lab: [facility] [place] [address] [address] Performing Lab: [facility] [place] [address] [address] [place] CBC AND DIFF (AUTO) MCH [ENTITIC MASS] BY AUTOMATED COUNT 31.6 pg 26.2 - 32.6 06/22 Specimen Type: BLOOD No comment entered. Ordering Provider: YUMIKO HECK Report Released Date/Time: Mar 30, 2024 07:54 AM Reporting Lab: [facility] [place] [address] [address] Performing Lab: [facility] [place] [address] [address] [place] CBC AND DIFF (AUTO) NEUTROPHILS /100 LEUKOCYTES IN BLOOD BY AUTOMATED COUNT 57.4 43.7 - 75.8 06/22 Specimen Type: BLOOD No comment entered. Ordering Provider: YUMIKO HECK Report Released Date/Time: Mar 30, 2024 07:54 AM Reporting Lab: [facility] [place] [address] [address] Performing Lab: [facility] [place] [address] [address] [place] CBC AND DIFF (AUTO) LYMPHOCYTES /100 LEUKOCYTES IN BLOOD BY AUTOMATED COUNT 29.7 14.0 - 42.3 06/22 Specimen Type: BLOOD No comment entered. Ordering Provider: YUMIKO HECK Report Released Date/Time: Mar 30, 2024 07:54 AM Reporting Lab: [facility] [place] [address] [address] Performing Lab: [facility] [place] [address] [address] [place] CBC AND DIFF (AUTO) MONOCYTES/1 00 LEUKOCYTES IN BLOOD BY AUTOMATED COUNT 8.1 5.1 - 13.7 06/22 Specimen Type: BLOOD No comment entered. Ordering Provider: YUMIKO HECK Report Released Date/Time: Mar 30, 2024 07:54 AM Reporting Lab: [facility] [address] [address] Performing Lab: [facility] [address] [address] [place] CBC AND DIFF (AUTO) EOSINOPHILS /100 LEUKOCYTES IN BLOOD BY AUTOMATED COUNT 4.0 0.4 - 6.8 06/22 Specimen Type: BLOOD No comment entered. Ordering Provider: YUMIKO HECK Report Released Date/Time: Mar 30, 2024 07:54 AM Reporting Lab: [facility] [address] Performing Lab: [facility]ITALRGRE[facility]OSPITALTRN [address] [address] [place] CBC AND DIFF (AUTO) BASOPHILS/1 00 LEUKOCYTES IN BLOOD BY AUTOMATED COUNT 0.4 0.1 - 2.0 06/22 Specimen Type: BLOOD No comment entered. Ordering Provider: YUMIKO HECK Report Released Date/Time: Mar 30, 2024 07:54 AM Reporting Lab: [facility]ITALTRN [facility] [address] [address] Performing Lab: [facility] [address] [address] [place] CBC AND DIFF (AUTO) NEUTROPHILS [#/VOLUME] IN BLOOD BY AUTOMATED COUNT 2.71 10*3/u L 2.20 - 7.60 06/22 Specimen Type: BLOOD No comment entered. Ordering Provider: YUMIKO HECK Report Released Date/Time: Mar 30, 2024 07:54 AM Reporting Lab: [facility] [address] [address] Performing Lab: [facility] TRN [facility] [address] [address] [place] CBC AND DIFF (AUTO) LYMPHOCYTES [#/VOLUME] IN BLOOD BY AUTOMATED COUNT 1.40 10*3/u L 1.00 - 3.20 06/22 Specimen Type: BLOOD No comment entered. Ordering Provider: YUMIKO HECK Report Released Date/Time: Mar 30, 2024 07:54 AM Reporting Lab: [facility] [address] [address] Performing Lab: [facility] [address] [address] [place] CBC AND DIFF (AUTO) EOSINOPHILS [#/VOLUME] IN BLOOD BY AUTOMATED COUNT 0.19 10*3/u L 0.03 - 0.44 06/22 Specimen Type: BLOOD No comment entered. Ordering Provider: YUMIKO HECK F Report Released Date/Time: Mar 30, 2024 07:54 AM Reporting Lab: [facility] [address] [address] Performing Lab: [facility] [address] [place] CBC AND DIFF (AUTO) BASOPHILS [#/VOLUME] IN BLOOD BY AUTOMATED COUNT 0.02 10*3/u L 0.01 - 0.13 06/22 Specimen Type: BLOOD No comment entered. Ordering Provider: YUMIKO HECK Report Released Date/Time: Mar 30, 2024 07:54 AM Reporting Lab: [facility] [address] [address] Performing Lab: [facility] [address] [address] [place] CBC AND DIFF (AUTO) IMMATURE GRANULOCYTE S/100 LEUKOCYTES IN BLOOD BY AUTOMATED COUNT 0.4 0.0 - 0.7 06/22 Specimen Type: BLOOD No comment entered. Ordering Provider: YUMIKO HECK Report Released Date/Time: Mar 30, 2024 07:54 AM Reporting Lab: [facility] [address] [address] Performing Lab: [facility] [address] [address] [place] CBC AND DIFF (AUTO) IMMATURE GRANULOCYTE S [#/VOLUME] IN BLOOD 0.02 10*3/u L 0.00 - 0.06 06/22 Specimen Type: BLOOD No comment entered. Ordering Provider: YUMIKO HECK Report Released Date/Time: Mar 30, 2024 07:54 AM Reporting Lab: [facility] [address] [address] Performing Lab: [address] [address] [place] CBC AND DIFF (AUTO) NRBC % 0.0 0.0 - 0.0 06/22 Specimen Type: BLOOD No comment entered. Ordering Provider: YUMIKO HECK Report Released Date/Time: Mar 30, 2024 07:54 AM Reporting Lab: [address] [address] Performing Lab: [address] [address] [place] CBC AND DIFF (AUTO) NRBC, ABS 0.00 10*3/u L 0.00 - 0.00 06/22 Specimen Type: BLOOD No comment entered. Ordering Provider: YUMIKO HECK Report Released Date/Time: Mar 30, 2024 07:54 AM Reporting Lab: [address] [address] Performing Lab: [address] [address] [place] VITAMIN D (25-OH) 25-HYDROXYV ITAMIN D3 [MASS/VOLUM E] IN SERUM OR PLASMA 46 ng/mL 20 - 50 06/22 Specimen Type: SERUM No comment entered. Ordering Provider: THAD RUSH Report Released Date/Time: Jun 09, 2024 10:10 AM Reporting Lab: [address] [address] Performing Lab: [address] [address] [place] LIPID PANEL FASTING CHOLESTEROL [MASS/VOLUM E] IN SERUM OR PLASMA 203 mg/dL 01/19 H Specimen Type: SERUM No comment entered. Ordering Provider: YUMIKO HECK Report Released Date/Time: Jan 16, 2024 08:35 AM Reporting Lab: [facility] [address] [address] Performing Lab: [facility] [address] [address] [place] LIPID PANEL FASTING TRIGLYCERID E [MASS/VOLUM E] IN SERUM OR PLASMA 198 mg/dL 0 - 150 01/19 H Specimen Type: SERUM No comment entered. Ordering Provider: YUMIKO HECK Report Released Date/Time: Jan 16, 2024 08:35 AM Reporting Lab: [address] [address] Performing Lab: [address] [address] [place] LIPID PANEL FASTING CHOLESTEROL IN LDL [MASS/VOLUM E] IN SERUM OR PLASMA BY CALCULATION 121 mg/dL 0 - 129 01/19 Specimen Type: SERUM No comment entered. Ordering Provider: YUMIKO HECK Report Released Date/Time: Jan 16, 2024 08:35 AM Reporting Lab: [address] [address] Performing Lab: [facility] [address] [address] [place] LIPID PANEL FASTING CHOLESTEROL .TOTAL/CHOL ESTEROL IN HDL [MASS RATIO] IN SERUM OR PLASMA 4.8 01/19 Specimen Type: SERUM No comment entered. Ordering Provider: YUMIKO HECK Report Released Date/Time: Jan 16, 2024 08:35 AM Reporting Lab: [address] [address] Performing Lab: [address] [address] [place] LIPID PANEL FASTING CHOLESTEROL IN HDL [MASS/VOLUM E] IN SERUM OR PLASMA 42 mg/dL 40 - 60 01/19 Specimen Type: SERUM No comment entered. Ordering Provider: YUMIKO HECK Report Released Date/Time: Jan 16, 2024 08:35 AM Reporting Lab: [facility]ITALRGRE[facility] HOSPITALTRN [facility] [address] [facility] [address] Performing Lab: [facility]ITALRST[facility]N [facility]ITALUSE[address] [address] [place] BASIC METABOLIC PANEL (fasting) UREA NITROGEN [MASS/VOLUM E] IN SERUM OR PLASMA 16 mg/dL 7 - 25 01/19 Specimen Type: SERUM No comment entered. Ordering Provider: YUMIKO HECK Report Released Date/Time: Jan 16, 2024 08:35 AM Reporting Lab: [facility] [address] [facility] [address] Performing Lab: [facility] [address] [address] [place] BASIC METABOLIC PANEL (fasting) GLUCOSE [MASS/VOLUM E] IN SERUM OR PLASMA 151 mg/dL 65 - 100 01/19 H Specimen Type: SERUM No comment entered. Ordering Provider: YUMIKO HECK Report Released Date/Time: Jan 16, 2024 08:35 AM Reporting Lab: [facility] [address] [address] Performing Lab: [facility]ITALRST[facility]N [facility]USE[address] [address] [place] BASIC METABOLIC PANEL (fasting) SODIUM [MOLES/VOLU ME] IN SERUM OR PLASMA 136 mmol/L 135 - 145 01/19 Specimen Type: SERUM No comment entered. Ordering Provider: YUMIKO HECK Report Released Date/Time: Jan 16, 2024 08:35 AM Reporting Lab: [facility] [address] [address] Performing Lab: [facility]ITALRST[facility]N [facility]USE[address] [address] [place] BASIC METABOLIC PANEL (fasting) POTASSIUM [MOLES/VOLU ME] IN SERUM OR PLASMA 4.2 mmol/L 3.5 - 5.0 01/19 Specimen Type: SERUM No comment entered. Ordering Provider: YUMIKO HECK Report Released Date/Time: Jan 16, 2024 08:35 AM Reporting Lab: [facility]ITALRGRE[facility] HOSPITALTRN [address] [address] Performing Lab: [facility]ITALRGRE[facility]AT[facility] HOSPITALTRN [facility] [address] [place] BASIC METABOLIC PANEL (fasting) CHLORIDE [MOLES/VOLU ME] IN SERUM OR PLASMA 104 mmol/L 100 - 110 01/19 Specimen Type: SERUM No comment entered. Ordering Provider: YUMIKO HECK Report Released Date/Time: Jan 16, 2024 08:35 AM Reporting Lab: [facility]ITALR[facility]N [address] [address] Performing Lab: [facility]ITALRST[facility]N [facility] [address] [place] BASIC METABOLIC PANEL (fasting) CARBON DIOXIDE, TOTAL [MOLES/VOLU ME] IN SERUM OR PLASMA 22 meq/L 20 - 30 01/19 Specimen Type: SERUM No comment entered. Ordering Provider: YUMIKO HECK Report Released Date/Time: Jan 16, 2024 08:35 AM Reporting Lab: [facility]N [address] [address] Performing Lab: [facility]ITALRGREIL [facility]AT[facility] HOSPITALTRN [facility]ITALUSETS [address] [address] [place] BASIC METABOLIC PANEL (fasting) CREATININE [MASS/VOLUM E] IN SERUM OR PLASMA 1.32 mg/dL 0.50 - 1.40 01/19 Specimen Type: SERUM No comment entered. Ordering Provider: YUMIKO HECK Report Released Date/Time: Jan 16, 2024 08:35 AM Reporting Lab: [facility]ITALRGRE[facility] HOSPITALTRN [facility] [address] [address] Performing Lab: [facility]ITALRGRE[facility]AT[facility] HOSPITALTRN [facility]ITALUSE[address] [address] [place] BASIC METABOLIC PANEL (fasting) GLOMERULAR FILTRATION RATE/1.73 SQ M.PREDICTED [VOLUME RATE/AREA] IN SERUM, PLASMA OR BLOOD BY CREATININE- BASED FORMULA (CKD-EPI 2020) 57 mL/min 60 01/19 L Specimen Type: SERUM No comment entered. Ordering Provider: YUMIKO HECK Report Released Date/Time: Jan 16, 2024 08:35 AM Reporting Lab: [facility] [address] [facility] [address] Performing Lab: [facility] [address] [facility] [address] [facility] Vital Signs Combined list of inpatient and outpatient Vital Signs from Department of Defense and Veterans Affairs, ranging from 12 months to all on record, depending upon the facility. Vital Sign Value Date Comments Source SYSTOLIC BLOOD PRESSURE 139 06/26/2024 08:39:11 [place] DIASTOLIC BLOOD PRESSURE 70 06/26/2024 08:39:11 [place] PULSE OXIMETRY 98 06/26/2024 08:39:11 [place] WEIGHT 173.2 06/26/2024 08:39:11 [place] BMI 28 kg/m2 06/26/2024 08:39:11 [place] PAIN 0 06/26/2024 08:39:11 [place] HEIGHT 66 06/26/2024 08:39:11 [place] TEMPERATURE 97.6 06/26/2024 08:39:11 [place] PULSE 67 06/26/2024 08:39:11 [place] RESPIRATION 20 06/26/2024 08:39:11 [place] SYSTOLIC BLOOD PRESSURE 117 01/28/2024 12:59:14 [place] DIASTOLIC BLOOD PRESSURE 80 01/28/2024 12:59:14 [place] PULSE OXIMETRY 98 01/28/2024 12:59:14 [place] WEIGHT 174 01/28/2024 12:59:14 [place] BMI 28 kg/m2 01/28/2024 12:59:14 [place] PULSE 70 01/28/2024 12:59:14 [place] SYSTOLIC BLOOD PRESSURE 130 11/27/2023 09:45:43 [place] DIASTOLIC BLOOD PRESSURE 77 11/27/2023 09:45:43 [place] PULSE OXIMETRY 94 11/27/2023 09:45:43 [place] TEMPERATURE 97.6 11/27/2023 09:45:43 [place] PULSE 76 11/27/2023 09:45:43 SHANEKA MACIAS SYSTOLIC BLOOD PRESSURE 137 11/04/2023 08:32:14 [place] DIASTOLIC BLOOD PRESSURE 80 11/04/2023 08:32:14 [place] PULSE OXIMETRY 93 11/04/2023 08:32:14 [place] WEIGHT 178 11/04/2023 08:32:14 SHANEKA MACIAS BMI 29 kg/m2 11/04/2023 08:32:14 SHANEKA MACIAS PULSE 69 11/04/2023 08:32:14 SHANEKA MACIAS Encounters Combined list of: 1) Encounters from Department of Veterans Affairs facilities going backup to the last 18 months, not all ID inpatient encounters are included; 2) Encounters from the Department of [facility] facilities going backup to 280 months. Location Location Details Encounter Type Encounter Number Reason For Visit Attending Provider ADM Date DC Date Status Disposition Source [facility] Encounter [id number] CAROL SHAH SA, RN 03/21 [facility] En[facility] [id number] 03/21 [facility] Encounter [id number] 03/21 [facility] Encounter [id number] DOUGLAS CONNOR 03/21 [facility] Encounter [id number] 03/22 [facility] En[facility] [id number] 03/27 [facility] [place] [place] [facility] [place] MTMS BY PHARM ADDL 15 MIN [id number] Diagnos is: ICD-10- CM E11.9 Type 2 diabete s mellitu s without complic ations MIRNA,WILL CHANTAL VILLARREAL 03/28 [place] [facility] Encounter [id number] 03/29 [facility] En[facility] [id number] 04/08 [facility] [place] [place] [place] MTMS BY PHARM ADDL 15 MIN [id number] Diagnos is: ICD-10- CM E11.9 Type 2 diabete s mellitu s without complic ations MIRNA,WILL CHANTAL VILLARREAL 04/11 [place] [facility] Encounter [id number] 04/12 [facility] [place] O/P EST MOD 30-39 MIN [id number] Diagnos is: ICD-10- CM I10 Essenti al (primar y) hyperte nsion STELEA,CAR MEN F 04/12 [place] [facility] En[facility] [id number] 04/12 [facility] [place] [place] [facility] [place] QNHP OL DIG ASSMT&MGMT 5-10 [id number] Diagnos is: ICD-10- CM E11.9 Type 2 diabete s mellitu s without complic ations MIRNA,WILL CHANTAL VILLARREAL 04/17 [place] [facility] Encounter [id number] 04/18 [facility] En[facility] [id number] 04/18 [facility] En[facility] [id number] 04/18 [facility] En[facility] [id number] 04/19 [facility] En[facility] [id number] 04/22 [facility] En[facility] [id number] 05/09 [facility] En[facility] [id number] 05/09 [facility] OFFICE O/P EST LOW 20-29 MIN [id number] Diagnos is: ICD-10- CM I10 Essenti al (primar y) hyperte nsion STELEA,CAR MEN F 05/17 [place] [facility] En[facility] [id number] 05/21 [facility] En[facility] [id number] 05/22 [facility] En[facility] [id number] 05/26 [facility] En[facility] [id number] 06/02 [facility] En[facility] [id number] 06/03 [facility] En[facility] [id number] 06/03 [facility] [id number] 06/03 [facility] En[facility] [id number] 06/04 [facility] [place] OFF/OP EST NOVEMBER X REQ PHY/QHP [id number] Diagnos is: ICD-10- CM Z23 Encount er for immuniz ation NIGEL STILES 06/04 [place] [facility] Encounter [id number] 06/06 [facility] En[facility] [id number] 06/06 [facility] En[facility] [id number] 06/10 [facility] Encounter [id number] 06/12 [facility] Encounter [id number] 06/14 [facility] En[facility] [id number] 06/14 [facility] Encounter [id number] 06/18 [facility] En[facility] [id number] 06/26 [facility] En[facility] [id number] 07/05 [facility] Encounter [id number] 07/22 [facility] En[facility] [id number] 07/29 [facility] [place] Outpatient Encounter [id number] 08/09 [place] [facility] Out[facility] Encounter [id number] 08/09 [facility] En[facility] [id number] 08/12 [facility] En[facility] [id number] 08/16 [facility] [place] OFF/OP EST NOVEMBER X REQ PHY/QHP [id number] Diagnos is: ICD-10- CM I10 Essenti al (primar y) hyperte nsWHITNEY Hairston 08/16 [place] [facility] Out[facility] Encounter [id number] KEVIN BALL 08/19 [facility] En[facility] [id number] 08/19 [facility] En[facility] [id number] 08/24 [facility] [place] 1/ [id number] Diagnos is: ICD-10- CM E11.9 Type 2 diabete s mellitu s without complic ations QUINCY SAPP H Maryanne 08/26 [facility] FIT SPECTACLES BIFOCAL [id number] Diagnos is: ICD-10- CM Z46.0 Encount er for fit/adj st of spectac les and contact lenses QUINCY SAPP 08/26 [facility] En[facility] [id number] 08/29 [facility] Encounter [id number] 08/29 [facility] [place] OFF/OP EST NOVEMBER X REQ PHY/QHP [id number] Diagnos is: ICD-10- CM R05.9 Cough, unspeci fied WESLEY,ER IC K 08/30 [place] [facility] Out[facility] En[facility] [id number] 08/30 [facility] En[facility] [id number] 09/03 [facility]counter [id number] SHANNON MOTA 09/10 [facility]counter [id number] 09/10 [facility]counter [id number] 10/02 [facility]counter [id number] 10/12 [facility]counter [id number] 10/18 [facility] [id number] 10/29 [facility] [id number] 10/30 [facility] Encounter [id number] 11/03 [facility] [place] [facility] O/P EST MOD 30 MIN [id number] Diagnos is: ICD-10- CM I10 Essenti al (primar y) hyperte nsion STELEA,CAR MEN F 11/03 [place] [facility] Out[facility] Encounter [id number] 11/09 [facility] [id number] 11/12 [facility] [id number] 11/14 [facility] [id number] 11/20 [facility] [id number] 11/21 [facility] [id number] 11/24 [facility] Encounter [id number] 11/24 [facility] [place]/OP EST MAY X REQ PHY/QHP [id number] Diagnos is: ICD-10- CM E11.9 Type 2 diabete s mellitu s without complic ations WHITNEY MARTINEZ [place]/OP EST MAY X REQ PHY/QHP [id number] Diagnos is: ICD-10- CM Z91.81 History of falling VIELKA-IRAJ VEGA 11/26 [place] [facility] Out[facility] Encounter [id number] 11/26 [facility] [place] [facility] O/P EST MOD 30 MIN [id number] Diagnos is: ICD-10- CM T14.8XX A Other injury of unspeci fied body region, initial encount er ELEAN RUSH 11/26 [place] [facility] Out[facility] Encounter [id number] Juhi BUCKLEY 11/26 [facility] [id number] 12/01 [facility] [id number] 12/01 [facility]counter [id number] 12/09 [facility] [id number] 12/09 [facility] [id number] 12/23 [facility] [id number] 12/30 [facility]counter [id number] 12/30 [facility]counter [id number] 01/15 [facility]patient Encounter [id number] 01/23 [facility] OFFICE O/P EST MOD 30 MIN [id number] Diagnos is: ICD-10- CM E78.5 Hyperli pidemia , unspeci fied STELEA,CAR MEN F 01/27 [place] [facility] Out[facility] Encounter [id number] 01/27 [facility] QNHP OL DIG ASSMT&MGMT 5-10 [id number] Diagnos is: ICD-10- CM Z04.89 Encount er for examina tion and observa tion for oth reasons KARLO LOPEZ 01/30 [facility] Encounter [id number] 02/03 [facility] Encounter [id number] 03/30 [facility] Out[facility] Encounter [id number] 04/22 [facility] Out[facility] Encounter [id number] 04/23 [facility] Out[facility] Encounter [id number] 05/05 [facility] Encounter [id number] 06/12 [facility] Out[facility] Encounter [id number] 06/19 [facility] OFFICE O/P EST MOD 30 MIN [id number] 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 ELENA RUSH VICTORINA Ledezma 06/26 [facility] [place] [facility] Outpatient Encounter [id number] 07/17 [facility] Outpatient Encounter [id number] 07/18 [facility] Outpatient Encounter [id number] 07/21 [facility] [place] Social History Combined list of available smoking, tobacco, and other social history from [facility] of Defense and [facility] facilities. Social History Type Response Date Comment Sour e Tobacco smoking status DEIS ID-TOBACCO FORMER USER 11/04/2023 [facility] History of tobacco use ID-TOBACCO QUIT 15 YRS OR MORE 11/04/2023 [place] History of tobacco use ID-TOBACCO QUIT 15 YRS OR MORE 11/30/2022 [place] History of tobacco use ID-TOBACCO FORMER USER 08/24/2021 [facility] History of tobacco use ID-TOBACCO FORMER USER 08/23/2020 [facility] History of tobacco use ID-TOBACCO QUIT 15 YRS OR MORE 02/02/2019 [facility] History of tobacco use ID-TOBACCO FORMER USER 06/16/2018 [facility] History of tobacco use QUIT TOBACCO USE > 7 YEARS AGO 01/23/2017 reports quitting 25/30 years ago [facility] History of tobacco use QUIT TOBACCO USE > 7 YEARS AGO 01/19/2016 [facility] History of tobacco use QUIT TOBACCO USE > 7 YEARS AGO 04/14/2010 stopped tobacco 30 years ago [facility] Plan of Care List of future care activities from [facility] facilities. Additional future care activities may be listed in the Assessment and Plan section. Date/Time Care Activity Care Activity Detail Facili ty 09/28/2024 AMBULATORY - MEDICINE AMBULATORY - MEDICI [place] [facility] [place] [facility] 12/25/2024 AMBULATORY - MEDICINE AMBULATORY - MEDICI [place] [facility] Advance Directives List of completed, amended, or rescinded Advance Directives on record at Department of Veterans Affairs facilities. An actual copy of the Directive is not included. Date Advance Directive Provider Source 11/19/2017 ADVANCE DIRECTIVE CRYSTAL BYERS [place]
== END 2024-09-17 11:01 | disposition home or self-care (01) ==
PROVIDERS: Visit Provider Internal Medicine Nephrology
DX: N18.31 Chronic kidney disease, stage 3a (principal); I10 Essential (primary) hypertension; N20.0 Calculus of kidney
CPT/HCPCS: 99214

== ENCOUNTER → 2024-09-17 10:15 | Outpatient (BNVA) | payer OTHER, SELFPAY | PROVIDERS: Visit Provider Internal Medicine Nephrology | DX: I12.9 Hypertensive chronic kidney disease with stage 1 through stage 4 chronic kidney disease, or unspecified chronic kidney disease (principal); N18.31 Chronic kidney disease, stage 3a; N20.0 Calculus of kidney | CPT/HCPCS: 99212 ==

== ENCOUNTER 2025-03-16 16:01 | Outpatient (REF) | payer OTHER, SELFPAY ==
--- OUTSIDE RECORDS SUMMARY | 2024-09-28 06:00 | XMS_ITS ---
Author Name [facility] [place] Address [address] [place] [address] Care Team Providers Care Global Mobility Specialist Name Role Phone KILEY KHAN Primary [...] Policy Harden VEE RICHTER (WNR) MEDICARE ADVANTAGE [place] ANGELAIV IDUAL - [place] Oct 21, 2023 [id number] [phone] Thelma GERMAN PATIENT Selected Encounter This section includes the information on record at [place] for the Encounter. Date/Time Encounter Type Encounter Description Reason Provider Source Sep 28, 2024 10:00 AM OFFICE O/P EST MOD 30 MIN OPTOMETRY ICD-10-CM E11.9 Type 2 diabetes mellitus without complications PEARL MEJIAS [place] Encounter Template Text not used by [place] Assessments - Encounter Diagnoses This section includes the primary and secondary diagnoses documented for the Encounter. Date/Time Primary/Secondary Diagnosis Diagnosis Name Provider Source Sep 28, 2024 10:49 AM PRIMARY Type 2 diabetes mellitus without complications PEARL MEJIAS [place] [facility] [place] [facility] Sep 28, 2024 10:49 AM SECONDARY Presence of intraocular lens PEARL MEJIAS [place] [facility] Sep 28, 2024 10:49 AM SECONDARY Puckering of macula, bilateral PEARL MEJIAS [place] [facility] Plan of Treatment: Future Appointments (+ 6 months) and Future Tests (+/- 45 days) The Plan of Treatment section includes future care activities for the patient from all [place] treatmentfacilities. This section includes future appointments and future orders which are active, pending or scheduled. Future Appointments This section includes appointments that were scheduled to occur 6 months from the date of the Encounter, up to a maximum of 20 appointments. The data comes from all [place] treatment facilities. Appointment Date/Time Appointment Type Appointme nt Facility Name Dec 25, 2024 09:30 AM AMBULATORY - MEDICINE [facility] Jan 05, 2025 11:30 AM [facility] Jan 29, 2025 09:00 AM [facility]ORY - MEDICINE [facility] Advance Directives: All historical and current Section Date Range: From patient's date of to the date document was created. This section includes ALL of a patient's completed or amended [place] Advance and Rescinded Directives. The entries below indicate that a directive exists for the patient, but an actual copy is not included with this document. The data comes from all [place] facilities. Date Advance Directives Provider Source November 19, 2017 ADVANCE DIRECTIVE CRYSTAL BYERS Encounter Notes: All associated encounter notes This section contains the clinical notes associated to the Encounter. Date/Time Encounter Note(s) Provider Source Sep 28, 2024 10:40 AM OPTOMETRY NOTE: LOCAL TITLE: OPTOMETRY NOTE STANDARD TITLE: OPTOMETRY NOTE DATE OF NOTE: SEP 28, 2024@10:40 ENTRY DATE: SEP 28, 2024@10:40:18 AUTHOR: DADA MEJIAS EXP COSIGNER: URGENCY: STATUS: COMPLETED OPTOMETRY NOTE Has ADDENDA I saw this patient in conjunction with the student and agree to the stated findings and plan as noted below after reviewing both the history and repeating lynn elements of the physical exam now. Patient last seen here August 26, 2023 returns today for comprehensive exam not voicing any interval visual or ocular changes. He has a remote history of elevated intraocular pressure in 2018 noted to be 24 mmHg right eye and 23 mmHg left eye but with subsequent IOP's in the low to mid teens. Additionally he has undergone cataract surgery in each eye in the past and has a history of diabetes without retinopathy or macular edema either eye. His last hemoglobin A1c obtained June was 5.8. Impression: Diabetes without retinopathy or macular edema either eye. Stressed the importance of continued optimize control of blood sugar, blood pressure and cholesterol with healthy lifestyle. Trace epiretinal membrane right greater than left eye with no impact on best corrected acuity at present. Bilateral pseudophakia looks perfect, update glasses today. Prior history of elevated intraocular pressure in 2018 with subsequent IOP since then in the low to mid teens and without evidence of pseudoexfoliation, pigment dispersion or positive family history for glaucoma. Healthy disc appearance each eye with intact rim tissue, good color and without splinter hemorrhage or notching. Smaller disc size 0.45 right eye 0.40 left eye. Consider repeat optic nerve OCT if there were concerning changes to disc appearance, elevation in intraocular pressure or other physical signs suggestive of glaucomatous progression. Plan: Patient education as noted above review all exam findings now. Stressed the importance of continued good blood sugar control. Ordered new glasses today. Return in 12 months or sooner if need be. Ophthalmic medication reconciliation: He is currently not taking or prescribed any ocular medications. Medication Reconciliation: Outpatient: Has the patient been taking medications as documented in the EMLR? YES: The patient has been taking medications as documented in the EMLR. Essential Medication List for Review used to complete this medication reconciliation. INCLUDED IN THIS LIST: Alphabetical list of active outpatient prescriptions dispensed from this [facility] (local) and dispensed from another [place] or [facility] facility (remote) as well as inpatient orders [...] -------- [facility] NO KNOWN ALLERGIES Jose Banda (Tool #1) INCLUDED IN THIS LIST: Alphabetical list of active outpatient prescriptions dispensed from this [place] (local) and dispensed from another [place] or [facility] facility (remote) as well as inpatient orders (local pending and active), local clinic medications, locally documented non-VA medications, and local prescriptions that have or been discontinued in the past 90 days. Non-VA Meds Last Documented On: Mar 10, 2013 NOTE The display of VA prescriptions dispensed from another [place] or [facility] facility (remote) is limited to active outpatient prescription entries matched to National Drug File at the originating site and may not include some items such as investigational drugs, compounds, etc. NOT INCLUDED IN THIS LIST: Medications self-entered by the patient into personal health records (i.e. [employer]) are NOT included in this list. Non-VA medications documented outside this [place], remote inpatient orders (regardless of status) and remote clinic medications are NOT included in this list. The patient and provider must always discuss medications the patient is taking, regardless of where the medication was dispensed or obtained. OUTPT AMLODIPINE BESYLATE 2.5MG TAB (Status = Active) TAKE ONE TABLET BY MOUTH ONCE DAILY FOR BLOOD PRESSURE/HEART, DO NOT TAKE WITH GRAPEFRUIT JUICE Rx# [id number] Last Released: 07/01/24 Qty/Days Supply: Rx Expiration Date: 06/27/25 Refills Remainin Indication: FOR HIGH BLOOD PRESSURE OUTPT ATORVASTATIN CALCIUM 80MG TAB (Status = Active) TAKE ONE TABLET BY MOUTH AT BEDTIME FOR HIGH CHOLESTEROL Rx# [id number] Last Released: 01/30/24 Qty/Days Supply: Rx Expiration Date: 01/28/25 Refills Remainin Indication: FOR HIGH CHOLESTEROL OUTPT CALCIUM 500MG/VITAMIN D 200 UNT TAB (Status = Active) TAKE 1 TABLET BY MOUTH ONCE DAILY Rx# [id number] Last Released: 06/29/24 Qty/Days Supply: Rx Expiration Date: 06/27/25 Refills Remainin OUTPT NUTR SUPL GLUCERNA THER NUTR SHAKE STRAW (Status = Active) DRINK 1 CAN BY MOUTH TWICE DAILY FOR NUTRITIONAL SUPPLEMENTATION Rx# [id number] Last Released: 04/28/24 Qty/Days Supply: Rx Expiration Date: 04/25/25 Refills Remainin Indication: FOR NUTRITIONAL SUPPLEMENTATION OUTPT SITAGLIPTIN (EQV-ZITUVIO) 100MG TAB (Status = Active) TAKE ONE TABLET BY MOUTH ONCE DAILY THIS REPLACES ALOGLIPTIN Rx# [id number] Last Released: 04/27/24 Qty/Days Supply: Rx Expiration Date: 01/31/25 Refills Remainin Indication: TYPE 2 DIABETES OUTPT USTEKINUMAB 90MG/ML INJ 1ML SYR (Status = Discontinued) INJECT 90MG (1ML) SUBCUTANEOUSLY EVERY 8 WEEKS Rx# [id number] Last Released: 06/29/24 Qty/Days Supply: Rx Expiration Date: 06/27/25 Refills Remainin OUTPT USTEKINUMAB 90MG/ML INJ 1ML SYR (Status = Active) INJECT 90MG (1ML) SUBCUTANEOUSLY EVERY 8 WEEKS Rx# [id number] Last Released: 08/13/24 Qty/Days Supply: Rx Expiration Date: 07/22/25 Refills Remainin SUPPLIES Declines printed copy of medication list now. ^^^^^^^^^^^^^^^^^^^^^^^^^^ ^^^^^^^^^^^^^^^^^^^^^^^^^^ ^^^^^^^^^^^^^^^^^^^^^^^^^^ ^^ ^^^^^^^^^^^^^^^^^^^^^^^^^^ ^^^^^^^^^^^^^^^^^^^^^^^^^^ ^^^^^^^^^^^^^^^^^^^^^^^^^^ ^^ Alerting optometry health tech to order glasses as noted below: RX INFORMATION OD 0.00 -0.75 X110 Add:+2.50 Pzm:0.00 Dir: Prz2:0.00 Dir2: OS -0.25 -0.75 X43 Add:+2.50 Pzm:0.00 Dir: Prz2:0.00 Dir2: FITTING INFORMATION FPD:70 NPD:67 [place]:R: L: SEG HT:R:15 L:15 Tint:BROWN Shade:3 FRAME: FX3 GOLD 50-20-145 Right Lens: POLY BIFOCAL FT28 1.586 POLY Left Lens: POLY BIFOCAL FT28 1.586 POLY SOLID TINT Rx: NHM RX INFORMATION OD 0.00 -0.75 X110 Add:+2.50 Pzm:0.00 Dir: Prz2:0.00 Dir2: OS -0.25 -0.75 X43 Add:+2.50 Pzm:0.00 Dir: Prz2:0.00 Dir2: FITTING INFORMATION FPD:70 NPD:67 [place]:R: L: SEG HT:R:14 L:14 Tint:None Shade:None FRAME: FX27 GOLD 53-19-145 Right Lens: POLY BIFOCAL FT28 1.586 POLY Left Lens: POLY BIFOCAL FT28 1.586 POLY KLEAR ANTI-REFLECTIVE COATING Total time spent reviewing previous records, examining and counseling patient as well as entering orders: 34 minutes -3 minutes for refraction equals 31 minutes. /harvey/ Dada Mejias OD CHIEF OF OPTOMETRY Signed: 09/28/2024 10:50 Receipt Acknowledged By: 09/28/2024 15:00 /robert KATHLEEN OPTOMETRY TECH 09/28/2024 ADDENDUM STATUS: COMPLETED Optometry Health Social Scientist ordered patient 2 pair(s) of bifocal eyeglasses on 09/28/2024 as directed by provider. OPT HT entered consult(s) for order on behalf of provider. /harvey/ OLIVIER KATHLEEN OPTOMETRY TECH Signed: 09/28/2024 15:03 DADA MEJIAS [facility] [place] [facility] Sep 28, 2024 07:59 AM OPTOMETRY NOTE: LOCAL TITLE: OPTOMETRY NOTE STANDARD TITLE: OPTOMETRY NOTE DATE OF NOTE: SEP 28, 2024@07:59 ENTRY DATE: SEP 28, 2024@07:59:31 AUTHOR: LENA LIRA EXP COSIGNER: DADA MEJIAS URGENCY: STATUS: COMPLETED Active problems - Computerized Problem List is the source for the followin. Mild cognitive impairment 2. CKD stage 3 3. Allergic Rhinitis (SCT [id number]) 4. Anaemia 5. Ulcerative colitis 6. Diabetes mellitus type 2 7. History of surgery 8. Screening for malignant neoplasm of colon done 9. Pes planus 10. Hypertension (SNOMED CT [id number]) 11. Mixed hyperlipidaemia 12. Depression 13. Family medical history Active Outpatient Medications (including Supplies): Active Outpatient Medications Status = 1) AMLODIPINE BESYLATE 2.5MG TAB TAKE ONE TABLET BY MOUTH ONCE ACTIVE DAILY FOR BLOOD PRESSURE/HEART, DO NOT TAKE WITH GRAPEFRUIT JUICE Indication: FOR HIGH BLOOD PRESSURE 2) ATORVASTATIN CALCIUM 80MG TAB TAKE ONE TABLET BY MOUTH AT ACTIVE BEDTIME Indication: FOR HIGH CHOLESTEROL 3) CALCIUM 500MG/VITAMIN D 200 UNT TAB TAKE 1 TABLET BY MOUTH ACTIVE ONCE DAILY 4) NUTR SUPL GLUCERNA THER NUTR SHAKE STRAW DRINK 1 CAN BY ACTIVE MOUTH TWICE DAILY Indication: FOR NUTRITIONAL SUPPLEMENTATION 5) SITAGLIPTIN (EQV-ZITUVIO) 100MG TAB TAKE ONE TABLET BY MOUTH ACTIVE ONCE DAILY THIS REPLACES ALOGLIPTIN Indication: TYPE 2 DIABETES 6) USTEKINUMAB 90MG/ML INJ 1ML SYR INJECT 90MG (1ML) ACTIVE SUBCUTANEOUSLY EVERY 8 WEEKS Allergies: METFORMIN All medications including those prescribed by outside VA's, community providers, and all OTC meds were reviewed and reconciled with patient to the best of their abilities. This 74 year old MALE is seen today for diabetic eye exam JESSICA: AUG 26 2023 Chief Complaint: pt reports no changes in vision, denies any itching, burning,tearing of the eyes. OHx: 1. Diabetes type 2 without ocular complications OU 2. h/o borderline intraocular pressure 3. Pseudophakia OU 4. Refractive error/Presbyopia OU (-) Pain: (-) [place]: (-) Diplopia: (-) Flashes: (-) Floaters: (-) Amaurosis Fugax/Tia's: (-) Eye Injury: (+) Eye Surgery: CE OU (-) TBI (-) FOHx: FOHx: (-) Glaucoma/ARMD/Blindness VITALS (most recent, as listed in the electronic record): B/P: 139/70 (06/26/2024 08:39) Pulse: 67 (06/26/2024 08:39) Temperature: 97.6 F [36.4 C] (06/26/2024 08:39) Weight: 173.2 lb [78.56 kg] (06/26/2024 08:39) Height: 66 in [167.6 cm] (06/26/2024 08:39) BMI: BMI: 28.0 PERTINENT LABS: HEMOGLOBIN A1C TREND Collection DT Spec HGBA1c 06/22/2024 09:11 BLOOD 5.8 H 01/20/2024 07:49 BLOOD 6.0 H 11/04/2023 09:10 BLOOD 6.4 H 04/11/2023 10:18 BLOOD 6.2 H 09/13/2022 10:59 BLOOD 6.1 H (-) Smoker/Length of Time/PPD: Current Rx with last BCVA: OD plano -0.75 x 110 20/20 OS -0.25 -0.75 x 043 20/20 Add: +2.50 20/20 OU DVA ( )sc (X)cc - phoropter OD: 20/20 OS: 20/20 Pupils: PERRL (-)APD EOMs: SAFE OU, (-)Pain/Diplopia CVF (facial, peripheral): FTFC OU Subjective Refraction: OD plano -0.75 x 110 20/20 OS -0.25 -0.75 x 045 20/20 Add: +2.50 20/20 All the above performed by student, reviewed by attending Anterior segment: Performed by student, repeated by attending * Lids/Lashes: dermatochalasis OU, mild MGD and bleph OU Conjunctiva: white and quiet OU Corneas: clear OU Iris: flat and clear OU (-)NVI OU Anterior Chamber: deep and quiet OU Angles: open OU Lens: PCIOL OU clear OD, peripheral haze OS and centered OU Tonometry: Performed by student, reviewed by attending * [X] GAT [ ] iCare [] Rivers OD 14 mmHg OS 14 mmHg Time:10:10 Previous IOP (AUG 2023) OD: 17 OS: 16 Time 9:23am Tmax (2017) OD: 24 mmHg OS: 23 mmHg Fundus exam: Dilated: XXXX 10:11am Non dilated: Dilating Drops: 1GTT 1 % Tropicamide OU & 1GTT 2.5% Phenylephrine OU (Pt. ed. on side effects, dilation warning given and verbal consent obtained) Patient advised not to drive if they feel they have any symptoms which could affect their ability to drive safely. Patient advised not to engage in any activities which could put themselves or others at risk if they feel they have any symptoms which could affect their ability to perform those activities safely. Performed by student, repeated by attending * Vit: clear OU C/D: 0.35/0.35 OD, 0.30/0.30 OS (-)NVD Macula: flat and clear OU (-)CSME Tr ERM inferior arcade OU PPole: clear (-)DBH/VB/DONN/CWS A/V: 2/3 Vessels: normal caliber OU Periph: flat and intact (-)NVE,holes, tears, detachments 360 OU Assessment/Plan: 1. Diabetes: 1. Type II Diabetes without evidence of retinopathy or macular edema OU. Last A1c 5.8 - Pt ed on today's findings and the possible ocular health and visual complications associated with diabetes as well as importance of attending follow up appts - Encouraged pt to monitor blood sugar and continue taking medications as prescribed by their PCP - Pt ed to call immediately if experiencing any sudden changes in vision - Monitor annually 2. Pseudophakia (OU) - PCIOLs appear well centered and stable today - Pt. ed. on findings - Monitor 3.Remote h/o Ocular Hypertension - IOPs normotensive today, IOPs have been consistently normotensive for several years, no signs of any glaucomatous changes - order testing as needed - Monitor yearly 4. Regular Astigmatism OU and presbyopia OU - Pt. ed. on todays findings - Ordering duplicate frames for (FT28- clear and sun) - Monitor Return to Clinic 12 months or earlier PRN Patient Education: Diabetes: Patient was educated regarding diabetes and related ocular complications including retinopathy and cataract formation as well as other related systemic complications. The importance of good blood sugar control, blood sugar testing as recommended by their PCP and the importance of timely follow up were all emphasized. /harvey/ KIERSTEN LIRA OPTOMETRY STUDENT Signed: 09/28/2024 15:58 /harvey/ Dada Mejias OD CHIEF OF OPTOMETRY Cosigned: 09/28/2024 16:47 [facility]IR[facility] [place] [facility]
--- OUTSIDE RECORDS SUMMARY | 2025-03-16 11:41 | XMS_ITS | Continuity of Care Document ---
Author Name [facility] Organization [facility] Care Team Providers Care Substation Technician Name Role Phone [facility] Unavailable Unavailable Problems Combined list of problems from Department of Defense and Veterans Affairs facilities. It does not include entries that were removed or entered in error. Problem Status Onset Date Problem Type Date of Resolution Comments Source PEDOPHILIA Inactive 969 Condition 03/12/2012 Mar 12, 2012 Entered By: ASHLEY SPEARS Comment: Reports no current urges or activity [place] Allergic Rhinitis (SCT [id number]) Active Condition [place] Anaemia Active Condition Jun 19 Entered By: FIDENCIO RUSH Comment: 01/20/24 HGB 11.4Dec 2023 Entered By: FIDENCIO RUSH Comment: 06/22/24 HGB 11.4 [place] CKD stage 3 Active Condition Jun 19, 2024 Entered By: FIDENCIO RUSH Comment: 01/20/24 GFR 57Dec 2023 Entered By: FIDENCIO RUSH Comment: 06/22/24 GFR 53 [facility] Depression Active Condition [place] Diabetes mellitus type 2 Active Condition Aug 17, 2016 Entered By: BARB DE LOS SANTOS Comment: Diagnosed via HbA1c in July Entered By: FIDENCIO RUSH Comment: 01/20/24 A1c 6.0Dec 2023 Entered By: FIDENCIO RUSH Comment: 06/22/24 A1c 5.8 [facility] [place] [facility] Family medical history Active Condition Apr 14, 2010 Entered By: NIKO GARRIDO Comment: CAD [place] History of surgery Active Condition Jun 19, 2024 Entered By: FIDENCIO RUSH Comment: bilateral cataract extractionJun 19, 2024 Entered By: FIDENCIO RUSH Comment: excision BCC 2009Jun 19, 2024 Entered By: FIDENCIO RUSH Comment: hemorrhoidectomy [place] Hypertension (SNOMED CT [id number]) Active Condition [place] Mild cognitive impairment Active Condition Jun 30, 2024 Entered By: FIDENCIO RUSH Comment: lives alone, independent with ADL, IADL [facility] [place] [facility] Mixed hyperlipidaemia [facility] [place] Pes planus Active Condition [place] Screening for malignant neoplasm of colon done Active Condition Jan 01, 2012 Entered By: NIKO GARRIDO Comment: 11-23-11: Polypectomy x 2: Tubular AdenomaJan 01, 2012 Entered By: NIKO GARRIDO Comment: Repeat Colonoscopy 5 yearsFe2022 Entered By: JAKY ISSA Comment: Sigmoidoscopy 2023 Entered By: FIDENCIO RUSH Comment: [place]02[place] ( [place]9 [place] [facility] [place] Ulcerative colitis Active Condition Jun 30, 2024 Entered By: FIDENCIO RUSH Comment: followed by GI Dr. 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 [place] Calculus of Kidney Inactive Condition 06/19/2024 [place] Fungal dermatitis Inactive Condition 06/19/2024 [place] Gross Hematuria Inactive Condition 08/01/2021 [facility] Hypokalaemia Inactive Condition 06/19/2024 [facility] Obesity Inactive Condition 08/01/2021 [facility] Other Malaise and Fatigue Inactive Condition 08/01/2021 [place] Other Seborrheic Keratosis Inactive Condition 06/19/2024 [place] Prediabetes Inactive Condition 08/17/2016 [facility] Proteinuria * (ICD-9-CM 791.0) Inactive Condition 06/19/2024 [facility] SRB: Cristel PAZ: SRB: [id number] Inactive Condition 08/01/2021 [place] Diagnosis: ICD-10-CM N18.30 Chronic kidney disease, stage 3 unspecified Active Diagnosis [place] Diagnosis: ICD-10-CM E11.9 Type 2 diabetes mellitus without complications Active [facility] Diagnosis: ICD-10-CM G31.84 Mild cognitive impairment of uncertain or unknown etiology Active Diagnosis [facility] Diagnosis: ICD-10-CM Z04.89 Encounter for examination and observation for oth reasons Active Diagnosis [facility] Diagnosis: ICD-10-CM E78.5 Hyperlipidemia, unspecified Active Diagnosis [place] Diagnosis: ICD-10-CM T14.8XXA Other injury of unspecified body region, initial encounter Active Diagnosis [place] Diagnosis: ICD-10-CM Z91.81 History of falling Active Diagnosis [place] Diagnosis: ICD-10-CM I10 Essential (primary) hypertension Active Diagnosis [place] Medications Combined list of outpatient medications from [...] WITH GRAPEFRU IT JUICE ORAL ACTIVE 12/26/2025 [id number] KILEY KHAN 2024 90 [facility] IELD AMLODIPINE BESYLATE 2.5MG TAB TAKE ONE TABLET BY MOUTH ONCE DAILY FOR BLOOD PRESSURE /HEART, DO NOT TAKE WITH GRAPEFRU IT JUICE ORAL DISCONT INUED BY PROVIDE R 06/27/2025 [id number] 5 Pineda RUSH 2023 90 [facility] IELD AMLODIPINE BESYLATE 2.5MG TAB TAKE ONE TABLET BY MOUTH ONCE DAILY FOR BLOOD PRESSURE /HEART, DO NOT TAKE WITH GRAPEFRU IT JUICE ORAL DISCONT INUED 01/28/2025 [id number] TIFFANY HECK F 2023 90 [facility] IELD ATORVASTATI N CA 80MG TAB TAKE ONE TABLET BY MOUTH AT BEDTIME FOR HIGH CHOLESTE ROL ORAL DISCONT INUED BY PROVIDE R 01/28/2025 [id number] TIFFANY HECK F 2023 90 [place] CALCIUM 500MG/VITAM IN D 200UNT TAB TAKE 1 TABLET BY MOUTH ONCE DAILY ORAL ACTIVE 12/26/2025 [id number] 5 KILEY KHAN Juhi 2024 120 [place] CALCIUM 500MG/VITAM IN D 200UNT TAB TAKE 1 TABLET BY MOUTH ONCE DAILY ORAL DISCONT INUED 06/27/2025 [id number] 4 Pineda RUSH 2023 90 [place] CALCIUM 500MG/VITAM IN D 200UNT TAB TAKE 1 TABLET BY MOUTH ONCE DAILY ORAL DISCONT INUED 06/07/2024 [id number] OTTO BEGUM 2022 60 [place] FEXOFENADIN E HCL 180MG TAB TAKE ONE TABLET BY MOUTH ONCE DAILY FOR ALLERGIE S ORAL ACTIVE 12/26/2025 [id number] KILEY KHAN 2024 90 [place] GLUCERNA THERAPEUTIC NUTRITION SHAKE LIQUID STRAWBERRY DRINK 1 CAN BY MOUTH TWICE DAILY FOR NUTRITIO NAL SUPPLEME NTATION ORAL DISCONT INUED BY PROVIDE R 04/25/2025 [id number] 4 TIFFANY HECK DAWOOD F 2023 72 [place] ROSUVASTATI N CA 40MG TAB TAKE ONE-HALF TABLET BY MOUTH EVERY EVENING FOR CHOLESTE ROL ORAL ACTIVE 12/26/2025 [id number] KILEY KHAN 2024 45 [place] SITAGLIPTIN (EQV-ZITUVI O) 100MG TAB TAKE ONE TABLET BY MOUTH ONCE DAILY THIS REPLACES ALOGLIPT IN ORAL DISCONT INUED BY PROVIDE R 11/10/2025 [id number] VILMA COOPER 2024 90 [facility] [place] [facility] SITAGLIPTIN (EQV-ZITUVI O) 100MG TAB TAKE ONE TABLET BY MOUTH ONCE DAILY THIS REPLACES ALOGLIPT IN ORAL DISCONT INUED 01/31/2025 [id number] KRISTINA LOPEZ 2023 90 [facility] USTEKINUMAB 90MG/ML INJ,SYR,1ML INJECT 90MG (1ML) SUBCUTAN EOUSLY EVERY 8 WEEKS SUBCUT ANEOUS ACTIVE 07/22/2025 [id number] OTTO BEGUM 2024 1 IELD USTEKINUMAB 90MG/ML INJ,SYR,1ML INJECT 90MG (1ML) SUBCUTAN EOUSLY EVERY 8 WEEKS SUBCUT ANEOUS DISCONT INUED 06/27/2025 [id number] Pineda RUSH 2023 1 [place] Allergies, Adverse Reactions, Alerts Combined list of allergies from Department of Defense and Veterans Affairs facilities. It does not include entries that were removed or entered in error. Substance Category Reaction Severity Reaction type Status Date Reported Comments Source METFORMIN Propensity to adverse reactions to drug (finding) active 1 [facility] Immunizations Combined list of available immunizations from the Department of Defense and Veterans Affairs facilities. Immunization Series Date Given Administered By Site Reaction Lot Number CVX Code Drug Road Supervisor Status Comments Source INFLUENZA, UNSPECIFIED FORMULATION 2023 88 complet ed HISTORICA L INFORMATI ON - FROM PATIENT'S RECALL, [facility] provided vaccine [facility] INFLUENZA, UNSPECIFIED FORMULATION 2023 88 complet ed HISTORICA L INFORMATI ON - FROM OTHER PROVIDER, [facility] COVID-19 (MODERNA), MRNA, LNP-S, PF, 50 MCG/0.5 ML (AGES 12+ YEARS) 1 2022 RAFAEL STILES RIGHT DELTO ID [id number] 312 complet ed [facility]MIN[facility] AT [facility] IE INFLUENZA, HIGH-DOSE, QUADRIVALENT 2022 ESCOBAR LIVE LEFT DELTO ID [id number] 197 complet ed [facility] IELD COVID-19 (MODERNA), MRNA, LNP-S, BIVALENT BOOSTER, PF, 50 MCG/0.5 ML OR 25MCG/0.25 ML DOSE 5 2022 MARTINEZALBINA FUNK RIGHT DELTO ID [id number] 229 complet ed ADMINISTE RED AT [place], [facility] IELD INFLUENZA, INJECTABLE, QUADRIVALENT, PRESERVATIVE FREE 2022 ARSH PARRISH LEFT DELTO ID [id number] 150 complet ed Completed Series, ADMINISTE RED AT [place], [facility] IELD COVID-19 (MODERNA), MRNA, LNP-S, PF, 100 MCG/0.5ML DOSE OR 50 MCG/0.25ML DOSE 3 2021 207 complet ed MOD; [id number]; 2 [facility] IELD COVID-19 (MODERNA), MRNA, LNP-S, PF, 100 MCG OR 50 MCG DOSE 3 2021 207 complet ed MOD; [id number]; 2 [facility] IELD INFLUENZA VACCINE, QUADRIVALENT, ADJUVANTED 2020 205 complet ed [facility] IELD TDAP 2020 115 complet ed [facility] I[facility] COVID-19 (MODERNA), MRNA, LNP-S, PF, 100 MCG/0.5 ML DOSE 2 2020 207 complet ed MOD; [id number]; 1 [facility] IELD COVID-19 (MODERNA), MRNA, LNP-S, PF, 100 MCG/0.5 ML DOSE 1 2020 207 complet ed MOD; [id number]; 1 [facility] IELD INFLUENZA, SEASONAL, INJECTABLE 2018 141 complet ed [facility] INFLUENZA, INJECTABLE, QUADRIVALENT 2017 158 complet ed Site: Right Deltoid [place] ZOSTER RECOMBINANT 2 2017 187 complet ed [place] ZOSTER RECOMBINANT 1 2017 187 complet ed [place] INFLUENZA, SEASONAL, INJECTABLE 2016 141 complet [...] December 10, 2024 08:19 AM Reporting Lab: [facility] [address] [facility] [address] Performing Lab: [facility] [address] [facility] [address] [place] TSH THYROTROPIN [UNITS/VOLU ME] IN SERUM OR PLASMA BY DETECTION LIMIT <= 0.005 MIU/L 1.97 u[IU]/ mL 0.35 - 4.94 12/18 Specimen Type: SERUM No comment entered. Ordering Provider: ALTHEA KHAN Report Released Date/Time: December 10, 2024 08:19 AM Reporting Lab: [facility] [address] [facility] [address] Performing Lab: [address] [address] [place] LIPID PANEL FASTING CHOLESTEROL [MASS/VOLUM E] IN SERUM OR PLASMA 235 mg/dL 12/18 H Specimen Type: SERUM No comment entered. Ordering Provider: ALTHEA KHAN Report Released Date/Time: December 10, 2024 08:19 AM Reporting Lab: [facility] [address] [facility] [address] Performing Lab: [facility] [address] [facility] [address] [place] LIPID PANEL FASTING TRIGLYCERID E [MASS/VOLUM E] IN SERUM OR PLASMA 136 mg/dL 0 - 150 12/18 Specimen Type: SERUM No comment entered. Ordering Provider: ALTHEA KHAN Report Released Date/Time: December 10, 2024 08:19 AM Reporting Lab: [facility] [address] [facility] [address] Performing Lab: [address] [address] [place] LIPID PANEL FASTING CHOLESTEROL IN LDL [MASS/VOLUM E] IN SERUM OR PLASMA BY CALCULATION 165 mg/dL 0 - 129 12/18 H Specimen Type: SERUM No comment entered. Ordering Provider: ALTHEA KHAN Report Released Date/Time: December 10, 2024 08:19 AM Reporting Lab: [facility] [address] [facility] [address] Performing Lab: [address] [address] [place] LIPID PANEL FASTING CHOLESTEROL .TOTAL/CHOL ESTEROL IN HDL [MASS RATIO] IN SERUM OR PLASMA 5.5 12/18 Specimen Type: SERUM No comment entered. Ordering Provider: ALTHEA KHAN Report Released Date/Time: December 10, 2024 08:19 AM Reporting Lab: [facility] [place] [address] [facility] [address] Performing Lab: [address] [address] [place] LIPID PANEL FASTING CHOLESTEROL IN HDL [MASS/VOLUM E] IN SERUM OR PLASMA 43 mg/dL 40 12/18 Specimen Type: SERUM No comment entered. Ordering Provider: ALTHEA KHAN Report Released Date/Time: December 10, 2024 08:19 AM Reporting Lab: [facility] [address] [facility] [address] Performing Lab: [facility] [address] [facility] [address] [place] BASIC METABOLIC PANEL (fasting) UREA NITROGEN [MASS/VOLUM E] IN SERUM OR PLASMA 20 mg/dL 8 - 26 12/18 Specimen Type: SERUM No comment entered. Ordering Provider: ALTHEA KHAN Report Released Date/Time: December 10, 2024 08:19 AM Reporting Lab: [facility] [address] [facility] [address] Performing Lab: [facility] [address] [address] [place] BASIC METABOLIC PANEL (fasting) GLUCOSE [MASS/VOLUM E] IN SERUM OR PLASMA 151 mg/dL 65 - 100 12/18 H Specimen Type: SERUM No comment entered. Ordering Provider: ALTHEA KHAN Report Released Date/Time: December 10, 2024 08:19 AM Reporting Lab: [facility] [address] [facility] [address] Performing Lab: [facility] [address] [address] [place] BASIC METABOLIC PANEL (fasting) SODIUM [MOLES/VOLU ME] IN SERUM OR PLASMA 135 mmol/L 136 - 145 12/18 L Specimen Type: SERUM No comment entered. Ordering Provider: ALTHEA KHAN Report Released Date/Time: December 10, 2024 08:19 AM Reporting Lab: [facility] [address] [facility] [address] Performing Lab: [facility] [address] [address] [place] BASIC METABOLIC PANEL (fasting) POTASSIUM [MOLES/VOLU ME] IN SERUM OR PLASMA 3.7 mmol/L 3.5 - 5.1 12/18 Specimen Type: SERUM No comment entered. Ordering Provider: ALTHEA KHAN Report Released Date/Time: December 10, 2024 08:19 AM Reporting Lab: [facility]-BIRMINGHAMTRN [facility] [address] [facility] [address] Performing Lab: [facility] CL[facility]ERL TRN [facility]ITAL[facility]ETS [facility] [address] [facility] [address] [place] BASIC METABOLIC PANEL (fasting) CHLORIDE [MOLES/VOLU ME] IN SERUM OR PLASMA 106 mmol/L 98 - 107 12/18 Specimen Type: SERUM No comment entered. Ordering Provider: ALTHEA KHAN Report Released Date/Time: December 10, 2024 08:19 AM Reporting Lab: [facility] [address] [facility] [address] Performing Lab: [facility] [address] [address] [place] BASIC METABOLIC PANEL (fasting) CARBON DIOXIDE, TOTAL [MOLES/VOLU ME] IN SERUM OR PLASMA 19 meq/L 23 - 31 12/18 L Specimen Type: SERUM No comment entered. Ordering Provider: ALTHEA KHAN Report Released Date/Time: December 10, 2024 08:19 AM Reporting Lab: [facility]-BIRMINGHAMTRN [facility] [address] [facility] [address] Performing Lab: [facility]ERV[facility]ER[facility] A[facility]-BIRMINGHAMTRN [facility]ITALUSE[address] [address] [place] BASIC METABOLIC PANEL (fasting) CALCIUM [MASS/VOLUM E] IN SERUM OR PLASMA 8.5 mg/dL 8.8 - 10 12/18 L Specimen Type: SERUM No comment entered. Ordering Provider: ALTHEA KHAN Report Released Date/Time: December 10, 2024 08:19 AM Reporting Lab: [facility]ERV[facility]-BIRMING[facility]AMTRN [facility]USEN[facility] [address] [facility] [address] Performing Lab: [facility] CLARERVETERANS AFF[facility] C[facility]-BIRMINGHAMTRN [facility]USE[address] [address] [place] BASIC METABOLIC PANEL (fasting) CREATININE [MASS/VOLUM E] IN SERUM OR PLASMA 1.48 mg/dL 0.72 - 1.25 05/30 /2025 H Specimen Type: SERUM No comment entered. Ordering Provider: ALTHEA KHAN Report Released Date/Time: December 10, 2024 08:19 AM Reporting Lab: [facility]ITALUSETS [facility] [address] [facility] [address] Performing Lab: [facility]ERV[facility]ER[facility] AFF[facility]-BIR[facility]INGHAMTRN [facility] [address] [facility] [address] [facility] BASIC METABOLIC PANEL (fasting) GLOMERULAR FILTRATION RATE/1.73 SQ M.PREDICTED [VOLUME RATE/AREA] IN SERUM, PLASMA OR BLOOD BY CREATININE- BASED FORMULA (CKD-EPI 2020) 49 mL/min 60 12/18 L Specimen Type: SERUM No comment entered. Ordering Provider: ALTHEA KHAN Report Released Date/Time: December 10, 2024 08:19 AM Reporting Lab: [facility] CLARERL TRN [address] [address] Performing Lab: [facility]ERL TRN [facility] [address] [facility] LIVER FUNCTION PROTEIN [MASS/VOLUM E] IN SERUM OR PLASMA 6.7 g/dL 6.4 - 8.3 12/18 Specimen Type: SERUM No comment entered. Ordering Provider: ALTHEA KHAN Report Released Date/Time: December 10, 2024 08:19 AM Reporting Lab: [facility]ERL WSTRN [facility] [address] [facility] [address] Performing Lab: [facility] CLARERL TRN [facility]ITALUSEN[facility] [address] [facility] [address] [facility] LIVER FUNCTION ALBUMIN [MASS/VOLUM E] IN SERUM OR PLASMA BY BROMOCRESOL PURPLE (BCP) DYE BINDING METHOD 4.1 g/dL 3.2 - 4.6 12/18 Specimen Type: SERUM No comment entered. Ordering Provider: ALTHEA KHAN Report Released Date/Time: December 10, 2024 08:19 AM Reporting Lab: [facility]L WSTRN [facility]ITALUSEN[facility] [address] [facility] [address] Performing Lab: [facility] CLARERL TRN [facility]ITALUSE[address] [address] [place] LIVER FUNCTION ALKALINE PHOSPHATASE [ENZYMATIC ACTIVITY/VO LUME] IN SERUM OR PLASMA 68 U/L 40 - 150 12/18 Specimen Type: SERUM No comment entered. Ordering Provider: ALTHEA KHAN Report Released Date/Time: December 10, 2024 08:19 AM Reporting Lab: [facility] [place] [address] [address] Performing Lab: [facility] [place] [facility] [address] [facility] [address] [place] LIVER FUNCTION ASPARTATE AMINOTRANSF ERASE [ENZYMATIC ACTIVITY/VO LUME] IN SERUM OR PLASMA BY WITH P-5'-P 16 U/L 5 - 34 12/18 Specimen Type: SERUM No comment entered. Ordering Provider: ALTHEA KHAN Report Released Date/Time: December 10, 2024 08:19 AM Reporting Lab: [facility] [place] [address] [address] Performing Lab: [facility] [place] [address] [address] [place] LIVER FUNCTION ALANINE AMINOTRANSF ERASE [ENZYMATIC ACTIVITY/VO LUME] IN SERUM OR PLASMA BY WITH P-5'-P 13 U/L 0 - 55 12/18 Specimen Type: SERUM No comment entered. Ordering Provider: ALTHEA KHAN Report Released Date/Time: December 10, 2024 08:19 AM Reporting Lab: [facility] [place] [address] [address] Performing Lab: [facility] [place] [address] [address] [place] LIVER FUNCTION BILIRUBIN.T OTAL [MASS/VOLUM E] IN SERUM OR PLASMA 0.6 mg/dL 0.2 - 1.2 12/18 Specimen Type: SERUM No comment entered. Ordering Provider: ALTHEA KHAN Report Released Date/Time: December 10, 2024 08:19 AM Reporting Lab: [facility] [place] [address] [address] Performing Lab: [facility] [place] [facility] [address] [facility] [address] [place] CBC AND DIFF (AUTO) LEUKOCYTES [#/VOLUME] IN BLOOD BY AUTOMATED COUNT 5.03 10*3/u L 4.50 - 11.00 12/18 Specimen Type: BLOOD No comment entered. Ordering Provider: ALTHEA KHAN Report Released Date/Time: December 10, 2024 08:19 AM Reporting Lab: [facility]ERVETERANS AFF[facility]-BIRMINGHAMTRN [place] [facility] [address] [facility] [address] Performing Lab: [facility] CLARERVETERANS AFFA[facility] C[facility]-BIRMINGHAMTRN [place] [address] [address] [place] CBC AND DIFF (AUTO) ERYTHROCYTE S [#/VOLUME] IN BLOOD BY AUTOMATED COUNT 3.76 10*6/u L 4.23 - 5.66 12/18 L Specimen Type: BLOOD No comment entered. Ordering Provider: ALTHEA KHAN Report Released Date/Time: December 10, 2024 08:19 AM Reporting Lab: [facility] CLARERVETERANS AFFA[facility] MED[facility] C[facility]-BIRMINGHAMTRN [place] [address] [address] Performing Lab: [facility] CLARERVETER[facility] AFF[facility]-BIRMINGHAMTRN [place] [address] [address] [place] CBC AND DIFF (AUTO) HEMOGLOBIN [MASS/VOLUM E] IN BLOOD 11.9 g/dL 12.8 - 17 12/18 L Specimen Type: BLOOD No comment entered. Ordering Provider: ALTHEA KHAN Report Released Date/Time: December 10, 2024 08:19 AM Reporting Lab: [facility] CLARERVETERANS AFF[facility]-BIRMINGHAMTRN [place] [address] [address] Performing Lab: [facility] CLARERVETERANS AFFA[facility]-BIRMINGHAMTRN [place] [address] [address] [place] CBC AND DIFF (AUTO) HEMATOCRIT [VOLUME FRACTION] OF BLOOD BY AUTOMATED COUNT 34.4 39.2 - 50.4 12/18 L Specimen Type: BLOOD No comment entered. Ordering Provider: ALTHEA KHAN Report Released Date/Time: December 10, 2024 08:19 AM Reporting Lab: [facility] CL[facility]ERVETER[facility] AFF[facility]-BIRMINGHAMTRN [place] [address] [address] Performing Lab: [facility] [place] [facility] [address] [facility] [address] [place] CBC AND DIFF (AUTO) MCV [ENTITIC VOLUME] BY AUTOMATED COUNT 91.5 fL 82 - 99 12/18 Specimen Type: BLOOD No comment entered. Ordering Provider: ALTHEA KHAN Report Released Date/Time: December 10, 2024 08:19 AM Reporting Lab: [facility] [place] [facility] [address] [facility] [address] Performing Lab: [facility] [place] [address] [address] [place] CBC AND DIFF (AUTO) MCHC [MASS/VOLUM E] BY AUTOMATED COUNT 34.6 g/dL 30.8 - 35.1 12/18 Specimen Type: BLOOD No comment entered. Ordering Provider: ALTHEA KHAN Report Released Date/Time: December 10, 2024 08:19 AM Reporting Lab: [facility] [place] [address] [address] Performing Lab: [facility] [place] [address] [address] [place] CBC AND DIFF (AUTO) PLATELETS [#/VOLUME] IN BLOOD BY AUTOMATED COUNT 207 10*3/u L 140 - 360 12/18 Specimen Type: BLOOD No comment entered. Ordering Provider: ALTHEA KHAN Report Released Date/Time: December 10, 2024 08:19 AM Reporting Lab: [facility] [place] [address] [address] Performing Lab: [facility] [place] [address] [address] [place] CBC AND DIFF (AUTO) PLATELET MEAN VOLUME [ENTITIC VOLUME] IN BLOOD BY AUTOMATED COUNT 10.3 fL 9.2 - 12.4 12/18 Specimen Type: BLOOD No comment entered. Ordering Provider: ALTHEA KHAN Report Released Date/Time: December 10, 2024 08:19 AM Reporting Lab: [facility] [place] [address] [address] Performing Lab: [facility] [facility] [address] [facility] [address] [place] CBC AND DIFF (AUTO) ERYTHROCYTE DISTRIBUTIO N WIDTH [RATIO] BY AUTOMATED COUNT 12.9 12.0 - 16.0 12/18 Specimen Type: BLOOD No comment entered. Ordering Provider: ALTHEA KHAN Report Released Date/Time: December 10, 2024 08:19 AM Reporting Lab: [facility] [place] [address] [address] Performing Lab: [facility] [place] [address] [address] [place] CBC AND DIFF (AUTO) MONOCYTES [#/VOLUME] IN BLOOD BY AUTOMATED COUNT 0.32 10*3/u L 0.30 - 1.10 12/18 Specimen Type: BLOOD No comment entered. Ordering Provider: ALTHEA KHAN Report Released Date/Time: December 10, 2024 08:19 AM Reporting Lab: [facility] [place] [address] [address] Performing Lab: [facility] [place] [address] [address] [place] CBC AND DIFF (AUTO) MCH [ENTITIC MASS] BY AUTOMATED COUNT 31.6 pg 26.2 - 32.6 12/18 Specimen Type: BLOOD No comment entered. Ordering Provider: ALTHEA KHAN Report Released Date/Time: December 10, 2024 08:19 AM Reporting Lab: [facility] [place] [address] [address] Performing Lab: [facility] [place] [address] [address] [place] CBC AND DIFF (AUTO) NEUTROPHILS /100 LEUKOCYTES IN BLOOD BY AUTOMATED COUNT 59.6 43.7 - 75.8 12/18 Specimen Type: BLOOD No comment entered. Ordering Provider: ALTHEA KHAN Report Released Date/Time: December 10, 2024 08:19 AM Reporting Lab: [facility] [address] [address] Performing Lab: [facility] [place] [address] [address] [place] CBC AND DIFF (AUTO) LYMPHOCYTES /100 LEUKOCYTES IN BLOOD BY AUTOMATED COUNT 29.4 14.0 - 42.3 12/18 Specimen Type: BLOOD No comment entered. Ordering Provider: ALTHEA KHAN Report Released Date/Time: December 10, 2024 08:19 AM Reporting Lab: [facility] [place] [address] [address] Performing Lab: [facility] [address] [address] [place] CBC AND DIFF (AUTO) MONOCYTES/1 00 LEUKOCYTES IN BLOOD BY AUTOMATED COUNT 6.4 5.1 - 13.7 12/18 Specimen Type: BLOOD No comment entered. Ordering Provider: ALTHEA KHAN Report Released Date/Time: December 10, 2024 08:19 AM Reporting Lab: [facility] [address] [address] Performing Lab: [facility] [address] [address] [place] CBC AND DIFF (AUTO) EOSINOPHILS /100 LEUKOCYTES IN BLOOD BY AUTOMATED COUNT 3.8 0.4 - 6.8 12/18 Specimen Type: BLOOD No comment entered. Ordering Provider: ALTHEA KHAN Report Released Date/Time: December 10, 2024 08:19 AM Reporting Lab: [facility] [place] [address] [address] Performing Lab: [facility] [address] [address] [place] CBC AND DIFF (AUTO) BASOPHILS/1 00 LEUKOCYTES IN BLOOD BY AUTOMATED COUNT 0.4 0.1 - 2.0 12/18 Specimen Type: BLOOD No comment entered. Ordering Provider: ALTHEA KHAN Report Released Date/Time: December 10, 2024 08:19 AM Reporting Lab: [facility] [address] [address] Performing Lab: [facility] [address] [facility] [address] [place] CBC AND DIFF (AUTO) NEUTROPHILS [#/VOLUME] IN BLOOD BY AUTOMATED COUNT 3.00 10*3/u L 2.20 - 7.60 12/18 Specimen Type: BLOOD No comment entered. Ordering Provider: ALTHEA KHAN Report Released Date/Time: December 10, 2024 08:19 AM Reporting Lab: [facility] [address] [facility] [address] Performing Lab: [facility] [address] [address] [place] CBC AND DIFF (AUTO) LYMPHOCYTES [#/VOLUME] IN BLOOD BY AUTOMATED COUNT 1.48 10*3/u L 1.00 - 3.20 12/18 Specimen Type: BLOOD No comment entered. Ordering Provider: ALTHEA KHAN Report Released Date/Time: December 10, 2024 08:19 AM Reporting Lab: [facility] [address] Performing Lab: [facility] [address] [place] CBC AND DIFF (AUTO) EOSINOPHILS [#/VOLUME] IN BLOOD BY AUTOMATED COUNT 0.19 10*3/u L 0.03 - 0.44 12/18 Specimen Type: BLOOD No comment entered. Ordering Provider: ALTHEA KHAN Report Released Date/Time: December 10, 2024 08:19 AM Reporting Lab: [facility] [address] Performing Lab: [facility] [address] [place] CBC AND DIFF (AUTO) BASOPHILS [#/VOLUME] IN BLOOD BY AUTOMATED COUNT 0.02 10*3/u L 0.01 - 0.13 12/18 Specimen Type: BLOOD No comment entered. Ordering Provider: ALTHEA KHAN Report Released Date/Time: December 10, 2024 08:19 AM Reporting Lab: [facility] [place] [facility] [address] [facility] [address] Performing Lab: [facility] [address] [facility] [address] [place] CBC AND DIFF (AUTO) IMMATURE GRANULOCYTE S/100 LEUKOCYTES IN BLOOD BY AUTOMATED COUNT 0.4 0.0 - 0.7 12/18 Specimen Type: BLOOD No comment entered. Ordering Provider: ALTHEA KHAN Report Released Date/Time: December 10, 2024 08:19 AM Reporting Lab: [facility] [place] [facility] [address] [facility] [address] Performing Lab: [facility] [address] [address] [place] CBC AND DIFF (AUTO) IMMATURE GRANULOCYTE S [#/VOLUME] IN BLOOD BY AUTOMATED COUNT 0.02 10*3/u L 0.00 - 0.06 12/18 Specimen Type: BLOOD No comment entered. Ordering Provider: ALTHEA KHAN Report Released Date/Time: December 10, 2024 08:19 AM Reporting Lab: [facility] [place] [address] [address] Performing Lab: [facility] [address] [address] [place] CBC AND DIFF (AUTO) NUCLEATED ERYTHROCYTE S/100 LEUKOCYTES [RATIO] IN BLOOD BY AUTOMATED COUNT 0.0 0.0 - 0.0 12/18 Specimen Type: BLOOD No comment entered. Ordering Provider: ALTHEA KHAN Report Released Date/Time: December 10, 2024 08:19 AM Reporting Lab: [facility] [place] [facility] [address] [facility] [address] Performing Lab: [facility] [address] [address] [place] CBC AND DIFF (AUTO) NUCLEATED ERYTHROCYTE S [#/VOLUME] IN BLOOD BY AUTOMATED COUNT 0.00 10*3/u L 0.00 - 0.00 12/18 Specimen Type: BLOOD No comment entered. Ordering Provider: ALTHEA KHAN Report Released Date/Time: December 10, 2024 08:19 AM Reporting Lab: [facility]TRN [facility] [address] [address] Performing Lab: [facility]ITALN [facility] [address] [address] [place] LIPID PANEL FASTING CHOLESTEROL [MASS/VOLUM E] IN SERUM OR PLASMA 161 mg/dL 06/22 Specimen Type: SERUM No comment entered. Ordering Provider: YUMIKO HECK Report Released Date/Time: Mar 30, 2024 07:54 AM Reporting Lab: [facility] [address] [address] Performing Lab: [facility] [address] [place] LIPID PANEL FASTING TRIGLYCERID E [MASS/VOLUM E] IN SERUM OR PLASMA 74 mg/dL 0 - 150 06/22 Specimen Type: SERUM No comment entered. Ordering Provider: YUMIKO HECK Report Released Date/Time: Mar 30, 2024 07:54 AM Reporting Lab: [facility]ITAL[facility] [address] [address] Performing Lab: [facility]ITALN [facility] [address] [place] LIPID PANEL FASTING CHOLESTEROL IN LDL [MASS/VOLUM E] IN SERUM OR PLASMA BY CALCULATION 101 mg/dL 0 - 129 06/22 Specimen Type: SERUM No comment entered. Ordering Provider: YUMIKO HECK Report Released Date/Time: Mar 30, 2024 07:54 AM Reporting Lab: [facility]ITAL[facility] [address] [address] Performing Lab: [facility] [address] [place] LIPID PANEL FASTING CHOLESTEROL .TOTAL/CHOL ESTEROL IN HDL [MASS RATIO] IN SERUM OR PLASMA 3.6 06/22 Specimen Type: SERUM No comment entered. Ordering Provider: YUMIKO HECK Report Released Date/Time: Mar 30, 2024 07:54 AM Reporting Lab: [facility] [place] [address] [address] Performing Lab: [facility]ITALN [facility] [address] [address] [place] LIPID PANEL FASTING CHOLESTEROL IN HDL [MASS/VOLUM E] IN SERUM OR PLASMA 45 mg/dL 40 - 60 06/22 Specimen Type: SERUM No comment entered. Ordering Provider: YUMIKO HECK Report Released Date/Time: Mar 30, 2024 07:54 AM Reporting Lab: [facility] [place] [address] [address] Performing Lab: [facility]ITALN [facility] [address] [place] HEMOGLOBI N A1C PANEL HEMOGLOBIN [...] Mar 30, 2024 07:54 AM Reporting Lab: [facility]ITALN [facility] [address] Performing Lab: [facility]ITALN [facility] [address] [place] BASIC METABOLIC PANEL (fasting) UREA NITROGEN [MASS/VOLUM E] IN SERUM OR PLASMA 20 mg/dL 7 - 25 06/22 Specimen Type: SERUM No comment entered. Ordering Provider: YUMIKO HECK Report Released Date/Time: Mar 30, 2024 07:54 AM Reporting Lab: [facility]TRN [facility] [address] Performing Lab: [facility] [address] [place] BASIC METABOLIC PANEL (fasting) GLUCOSE [MASS/VOLUM E] IN SERUM OR PLASMA 137 mg/dL 65 - 100 06/22 H Specimen Type: SERUM No comment entered. Ordering Provider: YUMIKO HECK Report Released Date/Time: Mar 30, 2024 07:54 AM Reporting Lab: [facility] [address] [address] Performing Lab: [facility] [address] [address] [place] BASIC METABOLIC PANEL (fasting) SODIUM [MOLES/VOLU ME] IN SERUM OR PLASMA 140 mmol/L 135 - 145 06/22 Specimen Type: SERUM No comment entered. Ordering Provider: YUMIKO HECK Report Released Date/Time: Mar 30, 2024 07:54 AM Reporting Lab: [address] [address] Performing Lab: [facility] [address] [address] [facility] BASIC METABOLIC PANEL (fasting) POTASSIUM [MOLES/VOLU ME] IN SERUM OR PLASMA 4.5 mmol/L 3.5 - 5.0 06/22 Specimen Type: SERUM No comment entered. Ordering Provider: YUMIKO HECK Report Released Date/Time: Mar 30, 2024 07:54 AM Reporting Lab: [facility] [address] [address] Performing Lab: [facility] [address] [address] [place] BASIC METABOLIC PANEL (fasting) CHLORIDE [MOLES/VOLU ME] IN SERUM OR PLASMA 106 mmol/L 100 - 110 06/22 Specimen Type: SERUM No comment entered. Ordering Provider: YUMIKO HECK Report Released Date/Time: Mar 30, 2024 07:54 AM Reporting Lab: [facility] [address] [address] Performing Lab: [facility] [address] [address] [place] BASIC METABOLIC PANEL (fasting) CARBON DIOXIDE, TOTAL [MOLES/VOLU ME] IN SERUM OR PLASMA 24 meq/L 20 - 30 06/22 Specimen Type: SERUM No comment entered. Ordering Provider: YUMIKO HECK Report Released Date/Time: Mar 30, 2024 07:54 AM Reporting Lab: [facility] [address] [address] Performing Lab: [facility] [address] [place] BASIC METABOLIC PANEL (fasting) CREATININE [MASS/VOLUM E] IN SERUM OR PLASMA 1.41 mg/dL 0.50 - 1.40 06/22 H Specimen Type: SERUM No comment entered. Ordering Provider: YUMIKO HECK Report Released Date/Time: Mar 30, 2024 07:54 AM Reporting Lab: [facility] [address] [address] Performing Lab: [facility] [address] [place] BASIC METABOLIC PANEL (fasting) GLOMERULAR FILTRATION RATE/1.73 SQ M.PREDICTED [VOLUME RATE/AREA] IN SERUM, PLASMA OR BLOOD BY CREATININE- BASED FORMULA (CKD-EPI 2020) 53 mL/min 60 06/22 L Specimen Type: SERUM No comment entered. Ordering Provider: YUMIKO HECK Report Released Date/Time: Mar 30, 2024 07:54 AM Reporting Lab: [facility] [address] Performing Lab: [facility] [address] [place] LIVER FUNCTION PROTEIN [MASS/VOLUM E] IN SERUM OR PLASMA 6.6 g/dL 6.0 - 8.3 06/22 Specimen Type: SERUM No comment entered. Ordering Provider: YUMIKO HECK Report Released Date/Time: Mar 30, 2024 07:54 AM Reporting Lab: [facility] [address] [address] Performing Lab: [facility] [place] [facility] [address] [facility] [address] [place] LIVER FUNCTION ALBUMIN [MASS/VOLUM E] IN SERUM OR PLASMA 3.6 g/dL 3.5 - 5.0 06/22 Specimen Type: SERUM No comment entered. Ordering Provider: YUMIKO HECK Report Released Date/Time: Mar 30, 2024 07:54 AM Reporting Lab: [facility] [place] [facility] [address] [facility] [address] Performing Lab: [facility] [place] [address] [address] [place] LIVER FUNCTION ALKALINE PHOSPHATASE [ENZYMATIC ACTIVITY/VO LUME] IN SERUM OR PLASMA 78 U/L 40 - 150 06/22 Specimen Type: SERUM No comment entered. Ordering Provider: YUMIKO HECK Report Released Date/Time: Mar 30, 2024 07:54 AM Reporting Lab: [facility] [place] [facility] [address] [facility] [address] Performing Lab: [facility] [place] [address] [address] [place] LIVER FUNCTION ASPARTATE AMINOTRANSF ERASE [ENZYMATIC ACTIVITY/VO LUME] IN SERUM OR PLASMA 12 U/L 5 - 34 06/22 Specimen Type: SERUM No comment entered. Ordering Provider: YUMIKO HECK Report Released Date/Time: Mar 30, 2024 07:54 AM Reporting Lab: [facility] [place] [address] [address] Performing Lab: [facility] [place] [address] [address] [place] LIVER FUNCTION ALANINE AMINOTRANSF ERASE [ENZYMATIC ACTIVITY/VO LUME] IN SERUM OR PLASMA 15 U/L 06/22 Specimen Type: SERUM No comment entered. Ordering Provider: YUMIKO HECK Report Released Date/Time: Mar 30, 2024 07:54 AM Reporting Lab: [facility] [place] [address] [address] Performing Lab: [facility] [place] [facility] [address] [facility] [address] [facility] LIVER FUNCTION BILIRUBIN.T OTAL [MASS/VOLUM E] IN SERUM OR PLASMA 0.5 mg/dL 0.2 - 1.2 06/22 Specimen Type: SERUM No comment entered. Ordering Provider: YUMIKO HECK Report Released Date/Time: Mar 30, 2024 07:54 AM Reporting Lab: [facility] [address] [facility] [address] Performing Lab: [facility] [address] [facility] [address] [facility] Vital Signs Combined list of inpatient and outpatient Vital Signs from Department of Defense and Veterans Affairs, ranging from 12 months to all on record, depending upon the facility. Vital Sign Value Date Comments Source SYSTOLIC BLOOD PRESSURE 142 12/25/2024 09:34:07 [place] DIASTOLIC BLOOD PRESSURE 83 12/25/2024 09:34:07 [place] PULSE OXIMETRY 97 % 12/25/2024 09:34:07 [facility] 177 12/25/2024 09:34:07 [facility] BMI 29 kg/m2 12/25/2024 09:34:07 [place] PULSE 69 12/25/2024 09:34[facility] [facility] SYSTOLIC BLOOD PRESSURE 139 06/26/2024 08:39:11 [place] DIASTOLIC BLOOD PRESSURE 70 06/26/2024 08:39:11 [place] PULSE OXIMETRY 98 06/26/2024 08:39:11 [place] [...] [facility] [id number] 10/02 [facility] [place] En[facility] [id number] 10/12 [facility] [place] En[facility] [id number] 10/18 [facility] [place] [facility] En[facility] [id number] 10/29 [facility] [place] En[facility] [id number] 10/30 [facility] [place] En[facility] [id number] 11/03 [facility] [place] OFFICE O/P EST MOD 30 MIN [id number] Diagnos is: ICD-10- CM I10 Essenti al (primar y) hyperte nsion STELEA,CAR MEN F 11/03 [place] [facility] En[facility] [id number] 11/09 [facility] En[facility] [id number] 11/12 [facility] En[facility] [id number] 11/14 [facility] En[facility] [id number] 11/20 [facility] En[facility] [id number] 11/21 [facility] En[facility] [id number] 11/24 [facility] En[facility] [id number] 11/24 [facility] [place] OFF/OP EST NOVEMBER X REQ PHY/QHP [id number] Diagnos is: ICD-10- CM E11.9 Type 2 diabete s mellitu s without complic ations MARTINEZWHITNEY DANIKA [place] OFF/OP EST NOVEMBER X REQ PHY/QHP [id number] Diagnos is: ICD-10- CM Z91.81 History of falling VIELKA-IRAJ VEGA 11/26 [place] [facility] En[facility] [id number] 11/26 [facility] [place] OFFICE O/P EST MOD 30 MIN [id number] Diagnos is: ICD-10- CM T14.8XX A Other injury of unspeci fied body region, initial encount ELENA Becerra 11/26 [place] [facility] En[facility] [id number] Juhi BUCKLEY 11/26 [facility] En[facility] [id number] 12/01 [facility] En[facility] [id number] 12/01 [facility] En[facility] [id number] 12/09 [facility] En[facility] [id number] 12/09 [facility] En[facility] [id number] 12/23 [facility] En[facility] [id number] 12/30 [facility] En[facility] [id number] 12/30 [facility] En[facility] [id number] 01/15 [facility] En[facility] [id number] 01/23 [facility] OFFICE O/P EST MOD 30 MIN [id number] Diagnos is: ICD-10- CM E78.5 Hyperli pidemia , unspeci fied STELEA,CAR MEN F 01/27 [place] [facility] En[facility] [id number] 01/27 [facility] QNHP OL DIG ASSMT&MGMT 5-10 [id number] Diagnos is: ICD-10- CM Z04.89 Encount er for examina tion and observa tion for oth reasons KARLO LOPEZ IYA 01/30 [facility] En[facility] [id number] 02/03 [facility] En[facility] [id number] 03/30 [facility] En[facility] [id number] 04/22 [facility] En[facility] [id number]/[id number] [facility] [id number] 05/05 [facility] [id number] [facility]counter [id number] 06/19 [facility] OFFICE O/P EST MOD 30 MIN [id number] 1BY. 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 ELENA Dubois 06/26 [facility] Encounter [id number] 07/17 [facility] [id number] 07/18 [facility] [id number] 07/21 [facility] [id number] 09/17 [facility] [id number] 09/23 [facility] OFF[facility] O/P EST MOD 30 MIN [id number] Diagnos is: ICD-10- CM E11.9 Type 2 diabete s mellitu s without complic ations RANDELLVA DARIUS 09/28 [facility] En[facility] [id number] 11/02 [facility] [id number] 11/02 [facility] [id number] 11/03 [facility] En[facility] [id number] 11/30 [facility] [place] OFF[facility] O/P EST MOD 30 MIN [id number] Diagnos is: ICD-10- CM N18.30 Chronic kidney disease , stage 3 unspeci fied Karina KHAN 12/25 [place] [facility] Encounter [id number] 12/25 [facility] [id number] 12/31 [facility] [id number] 01/05 [facility] [id number] 01/05 [facility] [id number] 01/18 [facility] [id number] 01/25 [facility] [facility] Outpatient Encounter [id number] 01/29 [place] [facility] Out[facility] Encounter [id number] 01/29 [facility] Outpatient Encounter [id number] 02/05 [facility] Outpatient Encounter [id number] 02/05 [facility] Outpatient Encounter [id number] 02/15 [facility] Outpatient Encounter [id number] 02/15 [facility] Social History Combined list of available smoking, tobacco, and other social history from Department of Defense and Veterans Affairs facilities. Social History Type Response Date Comment Source Tobacco smoking status NHIS VA-TOBACCO USE FORMER CIGARETTES 12[facility]20[facility] History of tobacco use VA-TOBACCO NEVER USED OTHER TYPE 12/25/2024 [facility] History of tobacco use [facility]-TO[facility] FORMER USER 11/04/2023 [place] History of tobacco use UT-TOBACCO FORMER USER 11/30/2022 [place] History of tobacco use UT-TOBACCO QUIT 15 YRS OR MORE 08/24/2021 [place] History of tobacco use VA-TOBACCO FORMER USER 08/23/2020 [place] History of tobacco use UT-TOBACCO QUIT 15 YRS OR MORE 02/02/2019 [place] History of tobacco use VA-TOBACCO FORMER USER 06/16/2018 [place] History of tobacco use QUIT TOBACCO USE > 7 YEARS AGO 01/23/2017 reports quitting 25/30 years ago [place] History of tobacco use QUIT TOBACCO USE > 7 YEARS AGO 01/19/2016 [place] History of tobacco use QUIT TOBACCO USE > 7 YEARS AGO 04/14/2010 stopped tobacco 30 years ago [place] Plan of Care List of future care activities from Department of Veterans Affairs facilities. Additional future care activities may be listed in the Assessment and Plan section. Date/Time Care Activity Care Activity Detail Facili ty 06/25/2025 AMBULATORY - MEDICINE AMBULATORY - [facility]IC[facility] [place] Advance Directives List of completed, amended, or rescinded Advance Directives on record at Department of Veterans Affairs facilities. An actual copy of the Directive is not included. Date Advance Directive Provider Source 11/19/2017 ADVANCE DIRECTIVE CRYSTAL BYERS
--- OUTSIDE RECORDS SUMMARY | 2025-03-16 16:46 | XMS_ITS | Clinical Summary ---
Author Organization [facility] Address [address] [facility] [address] [place] [address] Phone Care Team Providers Care Warehouse Engineer Name Role Phone Sonali Arnett MD Primary Care Provider [phone] Allergies No known active allergies Medications metFORMIN [...] Due Date Last Done Comments Pneumococcal Vaccine: 50+ Ye ars (1 of 2 - PCV) 1970 Colorectal Cancer Screening: Annual FOBT 2000 Colorectal Cancer Screening: Colonoscopy 2000 Colorectal Cancer Screening: Sigmoidoscopy 2000 Diabetes: Hemoglobin A1C 09/04/2021 10/27/2019 Diabetes: Ophthalmology Exam 09/04/2021 Diabetes: Pedal Pulse Checked 09/04/2021 Diabetes: Sensory Foot Exam 09/04/2021 Diabetes: Visual Foot Exam 09/04/2021 Influenza Vaccine (#1) 2025 Hepatitis B Vaccine Aged Out No longe [...] k/uL PVNMA 10/27/2019 us [facility] Conversion LAB [id number] LICITED RESULTS Final Result PVNMA from Last 3 Months or Most Recently Relevant to Health Maintenance Insurance Regions 1,2,3 (VACCN) Regions 1,2,3 (VACCN) Care Teams Warehouse Engineer Relationship Specialty Start Date End Date Sonali Arnett MD [address] [facility] MD PCP - General 08/01/20
--- OUTSIDE RECORDS SUMMARY | 2025-03-16 16:46 | XMS_ITS | Encounter Summary ---
Author Organization [employer] Address [address] [facility] [address] [place] [address] Care Team Providers Care Glass Cleaning Machine Tender Name Role Phone Unavailable Primary Care Provider Unavailabl e Encounter Details Date Type Department Care Team (Latest Contact Info) Description 05/30/2021 Abstract [facility] CONVERSIONS Dental, Provider, DDS Social History Tobacco [...]
--- OUTSIDE RECORDS SUMMARY | 2025-03-16 16:46 | XMS_ITS | Clinical Summary ---
Author Organization [employer] Address [address] [facility] [address] [place] [address] Care Team Providers Care Gauge Machine Operator Name Role Phone Unavailable Primary Care Provider [...] 2023-2 5 season) 2024 Influenza Vaccine (#1) 2025 RSV Patients and Pa tients Aged 60 [...] patient's age to complete this topic Meningococcal B Vaccine Aged Out No l onger eligible based on patient's age to complete [...]
[2025-03-16 18:41] LABS: Anion Gap 14 (12-20); Blood Urea Nitrogen 20 mg/dL (9-16); Carbon Dioxide 25 mmol/L (22-29); Chloride 106 mmol/L (96-108); Estimated Glomerular Filt Rate 41; Potassium 3.8 mmol/L (3.3-5.1); Sodium 141 mmol/L (135-145)
[2025-03-16 19:07] LABS: Protein/Creatinine Ratio, Ur 0.08 (<0.2); Total Protein Urine Random 29 mg/dL (<12)
== END 2025-03-16 16:02 | disposition home or self-care (01) ==
LOC: HO.HKASLDS 16:01
PROVIDERS: Visit Provider Internal Medicine Nephrology
DX: I12.9 Hypertensive chronic kidney disease with stage 1 through stage 4 chronic kidney disease, or unspecified chronic kidney disease (principal); N18.31 Chronic kidney disease, stage 3a; N20.0 Calculus of kidney
CPT/HCPCS: 36415; 80051; 82565; 82570; 84156; 84520

== ENCOUNTER 2025-03-18 09:56 | Outpatient (AMB) | payer OTHER, SELFPAY ==
--- OUTSIDE RECORDS SUMMARY | 2024-06-26 04:30 | XMS_ITS | Encounter Summary ---
Author Name [facility] Address [address] [place] [address] Care Team Providers Care Social Work Specialist Name Role Phone KILEY KHAN Primary Care Provider Unavail able Insurance Providers: All historical and current Section Date Range: From patient's date of to the date document was created. This section includes the names of all active insurance providers for the patient. Insurance Provider Type of Coverage Plan Name Start of Policy Coverage End of Policy Coverage Group Number Member ID Insurance Provider's Telephone Number Policy Harden's Name Patient's Relationship to Policy Harden VEE RICHTER (WNR) [place]IC[place] Oct 21, 2023 [id number] [phone] Thelma GERMAN PATIENT Selected Encounter This section includes the information on record at [place] for the Encounter. Date/Time Encounter Type Encounter Description Reason Provider Source Jun 26, 2024 08:30 AM OFFICE O/P EST MOD 30 MIN PRIMARY CARE/MEDICINE ICD-10-CM G31.84 Mild cognitive impairment of uncertain or unknown etiology FIDENCIO RUSH Encounter Template Text not used by [facility] Assessments - Encounter Diagnoses This section includes the primary and secondary diagnoses documented for the Encounter. Date/Time Primary/Secondary Diagnosis Diagnosis Name Provider Source Jun 30, 2024 02:04 PM PRIMARY Mild cognitive impairment of uncertain or unknown etiology FIDENCIO RUSH Jun 30, 2024 02:04 PM SECONDARY Chronic kidney disease, stage 3 unspecified FIDENCIO RUSH Jun 30, 2024 02:04 PM SECONDARY Essential (primary) hypertension FIDENCIO [place] Jun 30, 2024 02:04 PM SECONDARY Mixed hyperlipidemia FIDENCIO RUSH [place] Jun 30, 2024 02:04 PM SECONDARY Type 2 diabetes mellitus without complications FIDENCIO RUSH [place] Jun 30, 2024 02:04 PM SECONDARY Ulcerative colitis, unspecified with other complication FIDENCIO RUSH [place] Plan of Treatment: Future Appointments (+ 6 months) and Future Tests (+/- 45 days) The Plan of Treatment section includes future care activities for the patient from all [place] treatmentfacilities. This section includes future appointments and future orders which are active, pending or scheduled. Future Appointments This section includes appointments that were scheduled to occur 6 months from the date of the Encounter, up to a maximum of 20 appointments. The data comes from all [place] treatment facilities. Appointment Date/Time Appointment Type Appointme nt Facility Name Jul 17, 2024 09:45 AM AMBULATORY - MEDICINE [facility] Sep 17, 2024 12:00 PM AMBULATORY MEDICINE [facility] Sep 28, 2024 10:00 AM [facility] Dec 25, 2024 09:30 AM [facility] - MEDICINE [facility] Lab Results: +/- 30 days of the encounter This section includes the Chemistry and Hematology Lab Results on record with [place] for the patient. Radiology Reports and Pathology Reports are provided separately, in subsequent sections. Lab Results This section contains the Chemistry/Hematology Results that were resulted 30 days before or 30 daysafter the date of the Encounter. Date/Time Source Result Type Result - Unit Interpretation Reference Range Specimen Type Comment Jun 22, 2024 09:11 AM [place] HEMOGLOBIN A1C PANEL BLOOD Specimen T ype: BLOOD Comment: Values obtained from A1C measurements can vary. For atypical A1C assays, a reported value of 7.0 could actually be between 6.72 and 7.28 if measured by a reference method. A reported value of 9.0 could actually be between 8.73 and 9.27. Ref: http://www.ngsp .org/CAPdata.as p Ordering Provider: HIPOLITO HECK Report Released Date/Time: Mar 30, 2024 07:54 AM Reporting Lab: [address] [address] Performing Lab: [address] [address] HEMOGLOBIN A1C 5.8 H 4.0-5.6 Jun 22, 2024 09:11 AM [place] LIPID PANEL FASTING SERUM Specimen Ty pe: SERUM No comment entered. Ordering Provider: HIPOLITO HECK Report Released Date/Time: Mar 30, 2024 07:54 AM Reporting Lab: [address] [address] Performing Lab: [address] [address] CHOLESTEROL 161 mg/dL TRIGLYCERIDE 74 mg/dL 0-150 LDL calculated 101 mg/dL 0-129 CHOL/HDL 3.6 HDL CHOLESTEROL 45 mg/dL 40-60 Jun 22, 2024 09:11 AM [place] LIVER FUNCTION SERUM Specimen Type: SERUM No comment entered. Ordering Provider: HIPOLITO HECK Report Released Date/Time: Mar 30, 2024 07:54 AM Reporting Lab: [address] [address] Performing Lab: [address] [address] PROTEIN,TOTAL 6.6 g/dL 6.0-8.3 ALBUMIN 3.6 g/dL 3.5-5.0 ALKALINE PHOSPHATASE 78 U/L 40-150 AST 12 U/L 5-34 ALT 15 U/L BILIRUBIN, TOTAL 0.5 mg/dL 0.2-1.2 Jun 22, 2024 09:11 AM [facility] BASIC METABOLIC PANEL (fasting) SERUM Specimen Type: SERUM No comment entered. Ordering Provider: HIPOLITO HECK Report Released Date/Time: Mar 30, 2024 07:54 AM Reporting Lab: [address] [address] Performing Lab: [address] [address] UREA NITROGEN 20 mg/dL 7-25 GLUCOSE 137 mg/dL H 65-100 SODIUM 140 mmol/L 135-145 POTASSIUM 4.5 mmol/L 3.5-5.0 CHLORIDE 106 mmol/L 100-110 CO2 24 meq/L 20-30 CREATININE, Serum 1.41 mg/dL H 0.50-1.40 eGFR(CKD-EPI 2020) 53 mL/min L >60 Jun 22, 2024 09:11 AM [place] TSH SERUM Sp ecimen Type: SERUM No comment entered. Ordering Provider: HIPOLITO HECK Report Released Date/Time: Mar 30, 2024 07:54 AM Reporting [facility] [address] [address] Performing [facility]: [facility] [address] [address] TSH 1.83 u[IU]/mL 0.35-5.00 Jun 22, 2024 09:11 AM [place] MICROALBUMIN CREATININE RATIO PANEL URINE Specimen Type: URINE No comment entered. Ordering Provider: HIPOLITO HECK Report Released Date/Time: Mar 30, 2024 07:54 AM Reporting [facility] [address] [facility]: [facility] [address] MICROALBUMIN/CREATININE RATIO 6.2 mg/g 0 -29.9 MICROALBUMIN,QUANTITATIVE 0.9 mg/dL RR U NAVAIL CREATININE URINE 146.34 mg/dL Jun 22, 2024 09:11 AM [place] CBC AND DIFF (AUTO) BLOOD Specimen Ty pe: BLOOD No comment entered. Ordering Provider: HIPOLITO HECK Report Released Date/Time: Mar 30, 2024 07:54 AM Reporting [facility]: [facility] [address] Performing [facility]: [facility] [address] [address] WBC 4.72 10*3/uL 4.50-11.00 RBC 3.61 10*6/uL L 4.23-5.66 HGB 11.4 g/dL L 12.8-17 HCT 34.1 L 39.2-50.4 MCV 94.5 fL 82-99 MCHC 33.4 g/dL 30.8-35.1 PLT 193 10*3/uL 140-360 RDW-CV 12.7 12.0-16.0 MONO, ABS 0.38 10*3/uL 0.30-1.10 MCH 31.6 pg 26.2-32.6 NEUT % 57.4 43.7-75.8 LYMPH % 29.7 14.0-42.3 MONO % 8.1 5.1-13.7 EOS % 4.0 0.4-6.8 BASO % 0.4 0.1-2.0 NEUT, ABS 2.71 10*3/uL 2.20-7.60 LYMPH, ABS 1.40 10*3/uL 1.00-3.20 EOS, ABS 0.19 10*3/uL 0.03-0.44 BASO, ABS 0.02 10*3/uL 0.01-0.13 IMMATURE GRAN % 0.4 0.0-0.7 IMMATURE GRAN, ABS 0.02 10*3/uL 0.00-0.0 6 NRBC % 0.0 0.0-0.0 NRBC, ABS 0.00 10*3/uL 0.00-0.00 Jun 22, 2024 09:10 AM [facility] VITAMIN D (25-OH) SERUM Specimen Type : SERUM No comment entered. Ordering Provider: FIDENCIO RUSH Report Released Date/Time: Jun 09, 2024 10:10 AM Reporting Lab: [address] [address] Performing Lab: [address] [address] VITAMIN D (25-OH) 46 ng/mL 20-50 Vital Signs: All taken on the encounter date This section contains inpatient and outpatient Vital Signs collected on the date of the Encounter. Date/Time Temperature Pulse Blood Pressure Respiratory Rate SP02 Pain Height Weight Body Mass Index Source Jun 26, 2024 08:39 AM 97.6 67 139/70 20 98 0 66 173.2 28 [place] Social History: Smoking Status (Most current) and Tobacco Use (All prior to encounter date) This section includes the most current, and the historical, smoking and tobacco- related health factors from the [place] facility where the Encounter took place. Current Smoking Status This section includes the most current smoking, or tobacco-related health factor, from the [place] facility where the Encounter took place. Date/Time Current Smoking Status Comment Josie ity Nov 04, 2023 08:30 AM VA-TOBACCO FORMER USER [facility] Tobacco Use History This section includes a history of the smoking, or tobacco-related health factors, that were collected on or before the date of the Encounter. The data comes from the [place] facility where the Encounter took place. Date/Time Smoking Status/Tobacco Use Comment F acility Nov 04, 2023 08:30 AM VA-TOBACCO QUIT 15 YRS OR MORE [facility] November 30, 2022 10:00 AM VA-TOBACCO FORMER USER [facility] November 30, 2022 10:00 AM VA-TOBACCO QUIT 15 YRS OR MORE [place] Aug 24, 2021 01:00 PM VA-TOBACCO FORMER USER [facility] Aug 24, 2021 01:00 PM VA-TOBACCO QUIT 15 YRS OR MORE [place] Aug 23, 2020 10:00 AM VA-TOBACCO FORMER USER [facility] Aug 23, 2020 10:00 AM VA-TOBACCO QUIT 15 YRS OR MORE [place] Feb 02, 2019 10:41 AM VA-TOBACCO FORMER USER [facility] Feb 02, 2019 10:41 AM VA-TOBACCO QUIT 15 YRS OR MORE [place] Jun 16, 2018 02:13 PM VA-TOBACCO FORMER USER [place] Jun 16, 2018 02:13 PM VA-TOBACCO QUIT 15 YRS OR MORE [place] Jan 23, 2017 09:31 AM QUIT TOBACCO USE > 7 YEARS AGO reports quitting 25/30 years ago [place] Jan 19, 2016 01:51 PM QUIT TOBACCO USE > 7 YEARS AGO [place] Apr 14, 2010 08:37 AM QUIT TOBACCO USE > 7 YEARS AGO stopped tobacco 30 years ago [facility] Advance Directives: All historical and current Section Date Range: From patient's date of to the date document was created. This section includes ALL of a patient's completed or amended [place] Advance and Rescinded Directives. The entries below indicate that a directive exists for the patient, but an actual copy is not included with this document. The data comes from all [facility]. Date Advance Directives Provider Source November 19, 2017 ADVANCE DIRECTIVE [place] Encounter Notes: All associated encounter notes This section contains the clinical notes associated to the Encounter. Date/Time Encounter Note(s) Provider Source Jun 26, 2024 08:40 AM PREVENTIVE MEDICIN E NURSING NOTE: LOCAL TITLE: CLINICAL REMINDERS/NURSING STANDARD TITLE: PREVENTIVE MEDICINE NURSING NOTE DATE OF NOTE: JUN 26, 2024@08:40 ENTRY DATE: JUN 26, 2024@08:40:38 AUTHOR: PERLA BELL EXP COSIGNER: URGENCY: STATUS: COMPLETED Influenza Immunization: The patient has received the seasonal influenza vaccine for the current season at another location. Documented: INFLUENZA, UNSPECIFIED FORMULATION Historical Date Administered: 2023 Exact date unknown Outside Location: Outside Healthcare Provider Information Source: FROM OTHER PROVIDER MED REC COMPLETED BY PROVIDER DURING THE VISIT. /harvey/ PERLA BELL LPN LPN Signed: 06/26/2024 08:41 PERLA BELL [facility] Jun 26, 2024 08:17 AM PRIMARY CARE NURSE PRACTITIONER OUTPATIENT NOTE: LOCAL TITLE: NURSE PRACTITIONER OUTPATIENT NOTE STANDARD TITLE: PRIMARY CARE NURSE PRACTITIONER OUTPATIENT NOTE DATE OF NOTE: JUN 26, 2024@08:17 ENTRY DATE: JUN 26, 2024@08:17:25 AUTHOR: FIDENCIO RUSH EXP COSIGNER: URGENCY: STATUS: COMPLETED PRIMARY CARE VISIT DAWIT GERMAN, is a 74 y/o WHITE MALE who [facility] today [facility] the [place] [facility]. TYPE OF VISIT: Face to face HPI: ulcerative colitis - stable on biologic. Asymptomatic. Followed by GI HTN, HLD - stable on Rx. Denies chest pain, palpitations, SOB, peripheral edema CKD stage 3 - GFR 53, stable DM2 - A1c 5.8. Doesn't check BS at home. On sitagliptin. States he seems to be very forgetful. Lives alone, independent with ADL, IADL Starting to exercise so his mobility is better. Denies falls. Recent labs reviewed and all medications were reconciled during this visit. HEALTHCARE PROVIDERS: community PCP GI HISTORY: PERIOD OF SERVICE - [facility] FROM Jul TO Jul COMBAT SERVICE INDICATED: No VITAL SIGNS: Blood Pressure: 139/70 (06/26/2024 08:39) Pain: 0 (06/26/2024 08:39) Patient Height: 66 in [167.6 cm] (06/26/2024 08:39) Patient Weight: 173.2 lb [78.56 kg] (06/26/2024 08:39) Pulse: 67 (06/26/2024 08:39) Respiration: 20 (06/26/2024 08:39) Temperature: 97.6 F [36.4 C] (06/26/2024 08:39) ASSISTIVE DEVICES: none REVIEW OF SYSTEMS: see HPI PHYSICAL EXAMINATION: General: Well-appearing in no obvious distress. Mental Status: Alert and oriented x2-3. Repetitive. Head: Normocephalic, atraumatic. Eyes: PERRL. EOMI. Anicteric sclerae. Wears glasses ENT: TM and ear canals normal bilaterally. Moist oral mucosa. Posterior pharynx unremarkable. Good dentition. Neck: Supple. No lymphadenopathy. No bruit. Thyroid unremarkable. Lungs: CTAB. Normal chest excursion. Eupneic respirations. CV: Heart tones S1, S2. RRR. No M/G/R. No peripheral edema. GI: Abdomen is soft and nontender. No palpable mass or organomegaly. : No CVA tenderness. Neuro: CN II through XII grossly intact. Normal speech. Normal gait. Psych: Normal mood and affect. Normal judgment. Cooperative with exam, follows commands. ALLERGIES: [employer] [facility] - see end of note PREVENTIVE MEDICINE GOALS Influenza Immunization DUE NOW Medication Reconciliation DUE NOW (Optional) Whole Health Documentation DUE NOW ASSESSMENT/PLAN: Active problems - Computerized Problem List is the source for the followin. CKD stage 3 - GFR stable 53. Monitor labs, risk vs benefit of nephrotoxic medications 2. Ulcerative colitis - asymptomatic on Rx. Followed by GI 3. Type 2 diabetes mellitus - A1c 5.8. Doesn't monitor BS. Recommend spot checking BS at home, ADA diet. Continue Rx 4. Hypertension (SNOMED CT [id number]) - stable, continue Rx 5. Mixed hyperlipidaemia - stable, continue statin therapy 6. mild cognitive impairment - forgetful. Lives alone, no falls. Independent ADL and IADL. Declines referral at this time for in home assistance. FOLLOW UP: Return to clinic as noted below and/or sooner PRN UPCOMING APPOINTMENTS: 06/26/2024 08:30 CWM/SO/PACT 7 07/17/2024 09:45 COM CARE-GI GENERAL 09/17/2024 09:30 CWM/NO/OPTOMETRY/MERHAR No barriers noted; patient understands and agrees to current treatment plan. If patient has any questions, concerns or changes in current health status he/she will call or come [facility] to the [facility]. HM: Influenza Immunization: The patient has received the seasonal influenza vaccine for the current season at another location. Documented: INFLUENZA, UNSPECIFIED FORMULATION Historical Date Administered: May 05, 2024 Outside Location: Home Information Source: FROM PATIENT'S RECALL Comment: [facility] provided vaccine Medication Reconciliation: Outpatient: Has the patient been taking medications as documented in the EMLR? YES: The patient has been taking medications as documented in the EMLR. Essential Medication List for Review used to complete this medication reconciliation. INCLUDED IN THIS LIST: Alphabetical list of active outpatient prescriptions dispensed from this [place] (local) and dispensed from another [place] or [facility] facility (remote) as well as inpatient orders (local, pending and active), local clinic medications, locally documented non-VA medications, and local prescriptions that have or been discontinued in the past 90 days. - All changes in medications, including all non-VA/Herbal/OTC medications were entered into CPRS. - If there were any medications the patient should no longer take, they were discontinued. - The patient/caregiver was instructed to update this list, discard old lists, and take this list to the next appointment, whether with a VA or non-VA provider. /harvey/ JARRED MIDDLETON CERTIFIED NURSE PRACTITIONER Signed: 06/30/2024 14:04 FIDENCIO RUSH
--- OUTSIDE RECORDS SUMMARY | 2025-03-16 11:41 | XMS_ITS | Continuity of Care Document ---
Author Name [facility] Organization [facility] Care Team Providers Care Infection Prevention Specialist Name Role Phone [facility] Unavailable Unavailable Problems Combined list of problems from Department of Defense and Veterans Affairs facilities. It does not include entries that were removed or entered in error. Problem Status Onset Date Problem Type Date of Resolution Comments Source PEDOPHILIA Inactive 969 Condition 03/12/2012 Mar 12, 2012 Entered By: ASHLEY SPEARS Comment: Reports no current urges or activity [place] Allergic Rhinitis (SCT [id number]) Active Condition [place] Anaemia Active Condition Jun 19 Entered By: FIDENCIO RUSH Comment: 01/20/24 HGB 11.4Dec 2023 Entered By: FIDENCIO RUSH Comment: 06/22/24 HGB 11.4 [place] CKD stage 3 Active Condition Jun 19, 2024 Entered By: FIDENCIO RUSH Comment: 01/20/24 GFR 57Dec 2023 Entered By: FIDENCIO RUSH Comment: 06/22/24 GFR 53 [facility] Depression Active Condition [place] Diabetes mellitus type 2 Active Condition Aug 17, 2016 Entered By: BARB DE LOS SANTOS Comment: Diagnosed via HbA1c in July Entered By: FIDENCIO RUSH Comment: 01/20/24 A1c 6.0Dec 2023 Entered By: FIDENCIO RUSH Comment: 06/22/24 A1c 5.8 [facility] [place] [facility] Family medical history Active Condition Apr 14, 2010 Entered By: NIKO GARRIDO Comment: CAD [place] History of surgery Active Condition Jun 19, 2024 Entered By: FIDENCIO RUSH Comment: bilateral cataract extractionJun 19, 2024 Entered By: FIDENCIO RUSH Comment: excision BCC 2009Jun 19, 2024 Entered By: FIDENCIO RUSH Comment: hemorrhoidectomy [place] Hypertension (SNOMED CT [id number]) Active Condition [place] Mild cognitive impairment Active Condition Jun 30, 2024 Entered By: FIDENCIO RUSH Comment: lives alone, independent with ADL, IADL [facility] [place] [facility] Mixed hyperlipidaemia [facility] [place] Pes planus Active Condition [place] Screening for malignant neoplasm of colon done Active Condition Jan 01, 2012 Entered By: NIKO GARRIDO Comment: 11-23-11: Polypectomy x 2: Tubular AdenomaJan 01, 2012 Entered By: NIKO GARRIDO Comment: Repeat Colonoscopy 5 yearsFe2022 Entered By: JAKY ISSA Comment: Sigmoidoscopy 2023 Entered By: FIDENCIO RUSH Comment: LAST COLONOSCOPY 12/02/23 ( #9 polyps) at [facility] repeat 2026 [place] Ulcerative colitis Active Condition Jun 30, 2024 Entered By: FIDENCIO RUSH Comment: followed by GI Dr. 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 [place] Calculus of Kidney Inactive Condition 06/19/2024 [place] Fungal dermatitis Inactive Condition 06/19/2024 [place] Gross Hematuria Inactive Condition 08/01/2021 [facility] Hypokalaemia Inactive Condition 06/19/2024 [facility] Obesity Inactive Condition 08/01/2021 [facility] Other Malaise and Fatigue Inactive Condition 08/01/2021 [place] Other Seborrheic Keratosis Inactive Condition 06/19/2024 [place] Prediabetes Inactive Condition 08/17/2016 [facility] Proteinuria * (ICD-9-CM 791.0) Inactive Condition 06/19/2024 [facility] E[facility] SRB: Cristel PAZ: SRB: [id number] Inactive Condition 08/01/2021 [place] Diagnosis: ICD-10-CM N18.30 Chronic kidney disease, stage 3 unspecified Active Diagnosis [place] Diagnosis: ICD-10-CM E11.9 Type 2 diabetes mellitus without complications [facility] Diagnosis: ICD-10-CM G31.84 Mild cognitive impairment of uncertain or unknown etiology Active Diagnosis [facility] Diagnosis: ICD-10-CM Z04.89 Encounter for examination and observation for oth reasons Active Diagnosis [facility] Diagnosis: ICD-10-CM E78.5 Hyperlipidemia, unspecified Active Diagnosis [place] Diagnosis: ICD-10-CM T14.8XXA Other injury of unspecified body region, initial encounter Active Diagnosis [place] Diagnosis: ICD-10-CM Z91.81 History of falling Active Diagnosis [place] Diagnosis: ICD-10-CM I10 Essential (primary) hypertension Active Diagnosis [place] Medications Combined list of outpatient medications from Department of Defense and Veterans Affairs facilities.Medications provided include 1) outpatient medications from the last 15 months, and 2) patient-reported medications. Medication Details Route Status Patient Instructions Prescription Expires Prescription Number Last Dispense Date Ordering Provider Order Date Order Qty Source AMLODIPINE BESYLATE 2.5MG TAB TAKE ONE TABLET BY MOUTH ONCE DAILY FOR BLOOD PRESSURE /HEART, DO NOT TAKE WITH GRAPEFRU IT JUICE ORAL ACTIVE 12/26/2025 [id number] KILEY KHAN 2024 90 [facility] IELD AMLODIPINE BESYLATE 2.5MG TAB TAKE ONE TABLET BY MOUTH ONCE DAILY FOR BLOOD PRESSURE /HEART, DO NOT TAKE WITH GRAPEFRU IT JUICE ORAL DISCONT INUED BY PROVIDE R 06/27/2025 [id number] Pineda RUSH 2023 90 [facility] IELD AMLODIPINE BESYLATE 2.5MG TAB TAKE ONE TABLET BY MOUTH ONCE DAILY FOR BLOOD PRESSURE /HEART, DO NOT TAKE WITH GRAPEFRU IT JUICE ORAL DISCONT INUED 01/28/2025 [id number] TIFFANY HECK F 2023 90 [facility] IELD ATORVASTATI N CA 80MG TAB TAKE ONE TABLET BY MOUTH AT BEDTIME FOR HIGH CHOLESTE ROL ORAL DISCONT INUED BY PROVIDE R 01/28/2025 [id number] TIFFANY HECK F 2023 90 [place] CALCIUM 500MG/VITAM IN D 200UNT TAB TAKE 1 TABLET BY MOUTH ONCE DAILY ORAL ACTIVE 12/26/2025 [id number] KILEY KHAN Juhi 2024 120 [place] CALCIUM 500MG/VITAM IN D 200UNT TAB TAKE 1 TABLET BY MOUTH ONCE DAILY ORAL DISCONT INUED 06/27/2025 [id number] Pineda RUSH 2023 90 [place] CALCIUM 500MG/VITAM IN D 200UNT TAB TAKE 1 TABLET BY MOUTH ONCE DAILY ORAL DISCONT INUED 06/07/2024 [id number] OTTO BEGUM 2022 60 [place] FEXOFENADIN E HCL 180MG TAB TAKE ONE TABLET BY MOUTH ONCE DAILY FOR ALLERGIE S ORAL ACTIVE 12/26/2025 [id number] KILEY KHAN 2024 90 [place] GLUCERNA THERAPEUTIC NUTRITION SHAKE LIQUID STRAWBERRY DRINK 1 CAN BY MOUTH TWICE DAILY FOR NUTRITIO NAL SUPPLEME NTATION ORAL DISCONT INUED BY PROVIDE R 04/25/2025 [id number] 4 TIFFANY HECK DAWOOD F 2023 72 [place] ROSUVASTATI N CA 40MG TAB TAKE ONE-HALF TABLET BY MOUTH EVERY EVENING FOR CHOLESTE ROL ORAL ACTIVE 12/26/2025 [id number] KILEY KHAN 2024 45 [place] SITAGLIPTIN (EQV-ZITUVI O) 100MG TAB TAKE ONE TABLET BY MOUTH ONCE DAILY THIS REPLACES ALOGLIPT IN ORAL DISCONT INUED BY PROVIDE R 11/10/2025 [id number] VILMA COOPER 2024 90 [facility] [place] [facility] SITAGLIPTIN (EQV-ZITUVI O) 100MG TAB TAKE ONE TABLET BY MOUTH ONCE DAILY THIS REPLACES ALOGLIPT IN ORAL DISCONT INUED 01/31/2025 [id number] KRISTINA LOPEZ 2023 [facility] USTEKINUMAB 90MG/ML INJ,SYR,1ML INJECT 90MG (1ML) SUBCUTAN EOUSLY EVERY 8 WEEKS SUBCUT ANEOUS ACTIVE 07/22/2025 [id number] OTTO BEGUM 2024 1 [place] USTEKINUMAB 90MG/ML INJ,SYR,1ML INJECT 90MG (1ML) SUBCUTAN EOUSLY EVERY 8 WEEKS SUBCUT ANEOUS DISCONT INUED 06/27/2025 [id number] 4 Pineda RUSH 2023 1 [place] Allergies, Adverse Reactions, Alerts Combined list of allergies from Department of Defense and Veterans Affairs facilities. It does not include entries that were removed or entered in error. Substance Category Reaction Severity Reaction type Status Date Reported Comments Source METFORMIN Propensity to adverse reactions to drug (finding) active 1 [facility] Immunizations Combined list of available immunizations from the Department of Defense and Veterans Affairs facilities. Immunization Series Date Given Administered By Site Reaction Lot Number CVX Code Drug Maintenance Journeyman Status Comments Source INFLUENZA, UNSPECIFIED FORMULATION 2023 88 complet ed HISTORICA L INFORMATI ON - FROM PATIENT'S RECALL, [facility] provided vaccine [facility] INFLUENZA, UNSPECIFIED FORMULATION 2023 88 complet ed HISTORICA L INFORMATI ON - FROM OTHER PROVIDER, [facility] COVID-19 (MODERNA), MRNA, LNP-S, PF, 50 MCG/0.5 ML (AGES 12+ YEARS) 1 2022 RAFAEL STILES RIGHT DELTO ID [id number] 312 complet ed [facility] AT [facility] IE INFLUENZA, HIGH-DOSE, QUADRIVALENT 2022 ESCOBAR LIVE LEFT DELTO ID [id number] 197 complet ed ADMINISTE [facility] AT [facility] IELD COVID-19 (MODERNA), MRNA, LNP-S, BIVALENT BOOSTER, PF, 50 MCG/0.5 ML OR 25MCG/0.25 ML DOSE 5 2022 MARTINEZALBINA FUNK RIGHT DELTO ID [id number] 229 complet ed ADMINISTE RED AT [place], [facility] [place]ELD INFLUENZA, INJECTABLE, QUADRIVALENT, PRESERVATIVE FREE 2022 ARSH PARRISH LEFT DELTO ID [id number] 150 complet ed Completed Series, ADMINISTE RED AT [place], [facility] COVID-19 (MODERNA), MRNA, LNP-S, PF, 100 MCG/0.5ML DOSE OR 50 MCG/0.25ML DOSE 3 2021 207 complet ed MOD; [id number]; 2 [facility] COVID-19 (MODERNA), MRNA, LNP-S, PF, 100 MCG OR 50 MCG DOSE 3 2021 207 complet ed MOD; [id number]; 2 [facility] [place] INFLUENZA VACCINE, QUADRIVALENT, ADJUVANTED 2020 205 complet ed [facility] IELD TDAP 2020 115 complet ed [facility] COVID-19 (MODERNA), MRNA, LNP-S, PF, 100 MCG/0.5 ML DOSE 2 2020 207 complet ed MOD; [id number]; 1 [facility] COVID-19 (MODERNA), MRNA, LNP-S, PF, 100 MCG/0.5 ML DOSE 1 2020 207 complet ed MOD; [id number]; 1 [facility] IELD INFLUENZA, SEASONAL, INJECTABLE 2018 141 complet ed [facility] INFLUENZA, INJECTABLE, QUADRIVALENT 2017 158 complet ed Site: Right Deltoid [place] ZOSTER RECOMBINANT 2 2017 187 complet ed [place] ZOSTER RECOMBINANT 1 2017 187 complet ed [place] INFLUENZA, SEASONAL, INJECTABLE 2016 141 complet [...] PANEL HEMOGLOBIN A1C/HEMOGLO BIN.TOTAL IN BLOOD BY IFCC PROTOCOL 6.2 4.0 - 5.6 12/18 H Specimen Type: BLOOD Comment: Values obtained from A1C measurement s can vary. For atypical A1C assays, a reported value of 7.0 could actually be between 6.72 and 7.28 if measured by a reference method. A reported value of 9.0 could actually be between 8.73 and 9.27. Ref: http://www. ngsp.org/[place] Pdata.asp Ordering Provider: ALTHEA KHAN Report Released Date/Time: December 10, 2024 08:19 AM Reporting Lab: [facility] [address] [facility] [address] Performing Lab: [facility] [address] [facility] [address] [place] TSH THYROTROPIN [UNITS/VOLU ME] IN SERUM OR PLASMA BY DETECTION LIMIT <= 0.005 MIU/L 1.97 u[IU]/ mL 0.35 - 4.94 12/18 Specimen Type: SERUM No comment entered. Ordering Provider: ALTHEA KHAN Report Released Date/Time: December 10, 2024 08:19 AM Reporting Lab: [facility] [address] [facility] [address] Performing Lab: [address] [address] [place] LIPID PANEL FASTING CHOLESTEROL [MASS/VOLUM E] IN SERUM OR PLASMA 235 mg/dL 12/18 H Specimen Type: SERUM No comment entered. Ordering Provider: ALTHEA KHAN Report Released Date/Time: December 10, 2024 08:19 AM Reporting Lab: [facility] [address] [facility] [address] Performing Lab: [facility] [address] [facility] [address] [place] LIPID PANEL FASTING TRIGLYCERID E [MASS/VOLUM E] IN SERUM OR PLASMA 136 mg/dL 0 - 150 12/18 Specimen Type: SERUM No comment entered. Ordering Provider: ALTHEA KHAN Report Released Date/Time: December 10, 2024 08:19 AM Reporting Lab: [facility] [address] [facility] [address] Performing Lab: [address] [address] [place] LIPID PANEL FASTING CHOLESTEROL IN LDL [MASS/VOLUM E] IN SERUM OR PLASMA BY CALCULATION 165 mg/dL 0 - 129 12/18 H Specimen Type: SERUM No comment entered. Ordering Provider: ALTHEA KHAN Report Released Date/Time: December 10, 2024 08:19 AM Reporting Lab: [facility] [address] [facility] [address] Performing Lab: [address] [address] [place] LIPID PANEL FASTING CHOLESTEROL .TOTAL/CHOL ESTEROL IN HDL [MASS RATIO] IN SERUM OR PLASMA 5.5 12/18 Specimen Type: SERUM No comment entered. Ordering Provider: ALTHEA KHAN Report Released Date/Time: December 10, 2024 08:19 AM Reporting Lab: [facility] [address] [facility] [address] Performing Lab: [address] [address] [place] LIPID PANEL FASTING CHOLESTEROL IN HDL [MASS/VOLUM E] IN SERUM OR PLASMA 43 mg/dL 40 12/18 Specimen Type: SERUM No comment entered. Ordering Provider: ALTHEA KHAN Report Released Date/Time: December 10, 2024 08:19 AM Reporting Lab: [facility] [address] [facility] [address] Performing Lab: [facility]N [facility] [address] [facility] [address] [place] BASIC METABOLIC PANEL (fasting) UREA NITROGEN [MASS/VOLUM E] IN SERUM OR PLASMA 20 mg/dL 8 - 26 12/18 Specimen Type: SERUM No comment entered. Ordering Provider: ALTHEA KHAN Report Released Date/Time: December 10, 2024 08:19 AM Reporting Lab: [facility] [address] [facility] [address] Performing Lab: [facility] [address] [address] [place] BASIC METABOLIC PANEL (fasting) GLUCOSE [MASS/VOLUM E] IN SERUM OR PLASMA 151 mg/dL 65 - 100 12/18 H Specimen Type: SERUM No comment entered. Ordering Provider: ALTHEA KHAN Report Released Date/Time: December 10, 2024 08:19 AM Reporting Lab: [facility] [address] [facility] [address] Performing Lab: [facility]N [address] [address] [place] BASIC METABOLIC PANEL (fasting) SODIUM [MOLES/VOLU ME] IN SERUM OR PLASMA 135 mmol/L 136 - 145 12/18 L Specimen Type: SERUM No comment entered. Ordering Provider: ALTHEA KHAN Report Released Date/Time: December 10, 2024 08:19 AM Reporting Lab: [facility]ITAL[facility]AT[facility]PITALTRN [facility] [address] [facility] [address] Performing Lab: [facility]N [address] [address] [place] BASIC METABOLIC PANEL (fasting) POTASSIUM [MOLES/VOLU ME] IN SERUM OR PLASMA 3.7 mmol/L 3.5 - 5.1 12/18 Specimen Type: SERUM No comment entered. Ordering Provider: ALTHEA KHAN Report Released Date/Time: December 10, 2024 08:19 AM Reporting Lab: [facility]ITALTRN [facility] [address] [facility] [address] Performing Lab: [facility]PITALRL TRN [facility]PITALUSETS [facility] [address] [facility] [address] [place] BASIC METABOLIC PANEL (fasting) CHLORIDE [MOLES/VOLU ME] IN SERUM OR PLASMA 106 mmol/L 98 - 107 12/18 Specimen Type: SERUM No comment entered. Ordering Provider: ALTHEA KHAN Report Released Date/Time: December 10, 2024 08:19 AM Reporting Lab: [facility]ITALRMOUNT[facility]IEW HOSPITALN [facility] [address] [facility] [address] Performing Lab: [facility]ITALRMOUNT[facility]IEW HOSPITALN [address] [address] [place] BASIC METABOLIC PANEL (fasting) CARBON DIOXIDE, TOTAL [MOLES/VOLU ME] IN SERUM OR PLASMA 19 meq/L 23 - 31 12/18 L Specimen Type: SERUM No comment entered. Ordering Provider: ALTHEA KHAN Report Released Date/Time: December 10, 2024 08:19 AM Reporting Lab: [facility]ITAL[facility]AT[facility]PITALTRN [facility]USER[facility] [address] [facility] [address] Performing Lab: [facility]ITALRATMORE [facility] HOSPITALTRN [facility]ITALUSE[address] [address] [place] BASIC METABOLIC PANEL (fasting) CALCIUM [MASS/VOLUM E] IN SERUM OR PLASMA 8.5 mg/dL 8.8 - 10 12/18 L Specimen Type: SERUM No comment entered. Ordering Provider: ALTHEA KHAN Report Released Date/Time: December 10, 2024 08:19 AM Reporting Lab: [facility]ITALRAT[facility]OSPITALTRN [facility]ITALUSEROC[facility] [address] [facility] [address] Performing Lab: [facility]ITALRATMORE COMMUN[facility] HOSPITALTRN [facility]ITALUSE[address] [address] [place] BASIC METABOLIC PANEL (fasting) CREATININE [MASS/VOLUM E] IN SERUM OR PLASMA 1.48 mg/dL 0.72 - 1.25 05/30 /2025 H Specimen Type: SERUM No comment entered. Ordering Provider: ALTHEA KHAN Report Released Date/Time: December 10, 2024 08:19 AM Reporting Lab: [facility]PITALUSETS [facility] [address] [facility] [address] Performing Lab: [facility]ITALRATMORE [facility] HOSPITALTRN [facility] [address] [facility] [address] [facility] BASIC METABOLIC PANEL (fasting) GLOMERULAR FILTRATION RATE/1.73 SQ M.PREDICTED [VOLUME RATE/AREA] IN SERUM, PLASMA OR BLOOD BY CREATININE- BASED FORMULA (CKD-EPI 2020) 49 mL/min 60 12/18 L Specimen Type: SERUM No comment entered. Ordering Provider: ALTHEA KHAN Report Released Date/Time: December 10, 2024 08:19 AM Reporting Lab: [facility]ITALRL TRN [address] [address] Performing Lab: [facility]ITALRL TRN [facility] [address] [facility]OS[facility]ITALE LIVER FUNCTION PROTEIN [MASS/VOLUM E] IN SERUM OR PLASMA 6.7 g/dL 6.4 - 8.3 12/18 Specimen Type: SERUM No comment entered. Ordering Provider: ALTHEA KHAN Report Released Date/Time: December 10, 2024 08:19 AM Reporting Lab: [facility]PITALRL WSTRN [facility] [address] [facility] [address] Performing Lab: [facility]PITALRL TRN [facility]ITALUSEROCKEFELL[facility] [address] [facility] [address] [facility] LIVER FUNCTION ALBUMIN [MASS/VOLUM E] IN SERUM OR PLASMA BY BROMOCRESOL PURPLE (BCP) DYE BINDING METHOD 4.1 g/dL 3.2 - 4.6 12/18 Specimen Type: SERUM No comment entered. Ordering Provider: ALTHEA KHAN Report Released Date/Time: December 10, 2024 08:19 AM Reporting Lab: [facility]ITALRL WSTRN [facility]ITALUSEROCKE[facility] [address] [facility] [address] Performing Lab: [facility]PITALRL TRN [facility]USE[address] [address] [place] LIVER FUNCTION ALKALINE PHOSPHATASE [ENZYMATIC ACTIVITY/VO LUME] IN SERUM OR PLASMA 68 U/L 40 - 150 12/18 Specimen Type: SERUM No comment entered. Ordering Provider: ALTHEA KHAN Report Released Date/Time: December 10, 2024 08:19 AM Reporting Lab: [facility] [place] [address] [address] Performing Lab: [facility] [place] [facility] [address] [facility] [address] [place] LIVER FUNCTION ASPARTATE AMINOTRANSF ERASE [ENZYMATIC ACTIVITY/VO LUME] IN SERUM OR PLASMA BY WITH P-5'-P 16 U/L 5 - 34 12/18 Specimen Type: SERUM No comment entered. Ordering Provider: ALTHEA KHAN Report Released Date/Time: December 10, 2024 08:19 AM Reporting Lab: [facility] [place] [address] [address] Performing Lab: [facility] [place] [address] [address] [place] LIVER FUNCTION ALANINE AMINOTRANSF ERASE [ENZYMATIC ACTIVITY/VO LUME] IN SERUM OR PLASMA BY WITH P-5'-P 13 U/L 0 - 55 12/18 Specimen Type: SERUM No comment entered. Ordering Provider: ALTHEA KHAN Report Released Date/Time: December 10, 2024 08:19 AM Reporting Lab: [facility] [place] [address] [address] Performing Lab: [facility] [place] [address] [address] [place] LIVER FUNCTION BILIRUBIN.T OTAL [MASS/VOLUM E] IN SERUM OR PLASMA 0.6 mg/dL 0.2 - 1.2 12/18 Specimen Type: SERUM No comment entered. Ordering Provider: ALTHEA KHAN Report Released Date/Time: December 10, 2024 08:19 AM Reporting Lab: [facility] [place] [address] [address] Performing Lab: [facility] [place] [facility] [address] [facility] [address] [place] CBC AND DIFF (AUTO) LEUKOCYTES [#/VOLUME] IN BLOOD BY AUTOMATED COUNT 5.03 10*3/u L 4.50 - 11.00 12/18 Specimen Type: BLOOD No comment entered. Ordering Provider: ALTHEA KHAN Report Released Date/Time: December 10, 2024 08:19 AM Reporting Lab: [facility]ITALRATMORE COMMUN[facility] HOSPITALTRN [place] [facility] [address] [facility] [address] Performing Lab: [facility]PITALRATMORE COMMUNITY HOSPITALTRN [place] [address] [address] [place] CBC AND DIFF (AUTO) ERYTHROCYTE S [#/VOLUME] IN BLOOD BY AUTOMATED COUNT 3.76 10*6/u L 4.23 - 5.66 12/18 L Specimen Type: BLOOD No comment entered. Ordering Provider: ALTHEA KHAN Report Released Date/Time: December 10, 2024 08:19 AM Reporting Lab: [facility]ITALRATMORE COMM[facility] HOSPITALTRN [place] [address] [address] Performing Lab: [facility]ITALRATMORE [facility]PITALTRN [place] [address] [address] [place] CBC AND DIFF (AUTO) HEMOGLOBIN [MASS/VOLUM E] IN BLOOD 11.9 g/dL 12.8 - 17 12/18 L Specimen Type: BLOOD No comment entered. Ordering Provider: ALTHEA KHAN Report Released Date/Time: December 10, 2024 08:19 AM Reporting Lab: [facility] [place] [address] [address] Performing Lab: [facility] [place] [address] [address] [place] CBC AND DIFF (AUTO) HEMATOCRIT [VOLUME FRACTION] OF BLOOD BY AUTOMATED COUNT 34.4 39.2 - 50.4 12/18 L Specimen Type: BLOOD No comment entered. Ordering Provider: ALTHEA KHAN Report Released Date/Time: December 10, 2024 08:19 AM Reporting Lab: [facility] [place] [address] [address] Performing Lab: [facility] [place] [facility] [address] [facility] [address] [place] CBC AND DIFF (AUTO) MCV [ENTITIC VOLUME] BY AUTOMATED COUNT 91.5 fL 82 - 99 12/18 Specimen Type: BLOOD No comment entered. Ordering Provider: ALTHEA KHAN Report Released Date/Time: December 10, 2024 08:19 AM Reporting Lab: [facility] [place] [facility] [address] [facility] [address] Performing Lab: [facility] [place] [address] [address] [place] CBC AND DIFF (AUTO) MCHC [MASS/VOLUM E] BY AUTOMATED COUNT 34.6 g/dL 30.8 - 35.1 12/18 Specimen Type: BLOOD No comment entered. Ordering Provider: ALTHEA KHAN Report Released Date/Time: December 10, 2024 08:19 AM Reporting Lab: [facility] [place] [address] [address] Performing Lab: [facility] [place] [address] [address] [place] CBC AND DIFF (AUTO) PLATELETS [#/VOLUME] IN BLOOD BY AUTOMATED COUNT 207 10*3/u L 140 - 360 12/18 Specimen Type: BLOOD No comment entered. Ordering Provider: ALTHEA KHAN Report Released Date/Time: December 10, 2024 08:19 AM Reporting Lab: [facility] [place] [address] [address] Performing Lab: [facility] [place] [address] [address] [place] CBC AND DIFF (AUTO) PLATELET MEAN VOLUME [ENTITIC VOLUME] IN BLOOD BY AUTOMATED COUNT 10.3 fL 9.2 - 12.4 12/18 Specimen Type: BLOOD No comment entered. Ordering Provider: ALTHEA KHAN Report Released Date/Time: December 10, 2024 08:19 AM Reporting Lab: [facility] [place] [address] [address] Performing Lab: [facility] [place] [facility] [address] [facility] [address] [place] CBC AND DIFF (AUTO) ERYTHROCYTE DISTRIBUTIO N WIDTH [RATIO] BY AUTOMATED COUNT 12.9 12.0 - 16.0 12/18 Specimen Type: BLOOD No comment entered. Ordering Provider: ALTHEA KHAN Report Released Date/Time: December 10, 2024 08:19 AM Reporting Lab: [facility] [place] [address] [address] Performing Lab: [facility] [place] [address] [address] [place] CBC AND DIFF (AUTO) MONOCYTES [#/VOLUME] IN BLOOD BY AUTOMATED COUNT 0.32 10*3/u L 0.30 - 1.10 12/18 Specimen Type: BLOOD No comment entered. Ordering Provider: ALTHEA KHAN Report Released Date/Time: December 10, 2024 08:19 AM Reporting Lab: [facility] [place] [address] [address] Performing Lab: [facility] [place] [address] [address] [place] CBC AND DIFF (AUTO) MCH [ENTITIC MASS] BY AUTOMATED COUNT 31.6 pg 26.2 - 32.6 12/18 Specimen Type: BLOOD No comment entered. Ordering Provider: ALTHEA KHAN Report Released Date/Time: December 10, 2024 08:19 AM Reporting Lab: [facility] [place] [address] [address] Performing Lab: [facility] [place] [address] [address] [place] CBC AND DIFF (AUTO) NEUTROPHILS /100 LEUKOCYTES IN BLOOD BY AUTOMATED COUNT 59.6 43.7 - 75.8 12/18 Specimen Type: BLOOD No comment entered. Ordering Provider: ALTHEA KHAN Report Released Date/Time: December 10, 2024 08:19 AM Reporting Lab: [facility] [address] [address] Performing Lab: [facility] [place] [address] [address] [place] CBC AND DIFF (AUTO) LYMPHOCYTES /100 LEUKOCYTES IN BLOOD BY AUTOMATED COUNT 29.4 14.0 - 42.3 12/18 Specimen Type: BLOOD No comment entered. Ordering Provider: ALTHEA KHAN Report Released Date/Time: December 10, 2024 08:19 AM Reporting Lab: [facility] [place] [address] [address] Performing Lab: [facility] [address] [address] [place] CBC AND DIFF (AUTO) MONOCYTES/1 00 LEUKOCYTES IN BLOOD BY AUTOMATED COUNT 6.4 5.1 - 13.7 12/18 Specimen Type: BLOOD No comment entered. Ordering Provider: ALTHEA KHAN Report Released Date/Time: December 10, 2024 08:19 AM Reporting Lab: [facility] [address] [address] Performing Lab: [facility] [address] [address] [place] CBC AND DIFF (AUTO) EOSINOPHILS /100 LEUKOCYTES IN BLOOD BY AUTOMATED COUNT 3.8 0.4 - 6.8 12/18 Specimen Type: BLOOD No comment entered. Ordering Provider: ALTHEA KHAN Report Released Date/Time: December 10, 2024 08:19 AM Reporting Lab: [facility] [place] [address] [address] Performing Lab: [facility] [address] [address] [place] CBC AND DIFF (AUTO) BASOPHILS/1 00 LEUKOCYTES IN BLOOD BY AUTOMATED COUNT 0.4 0.1 - 2.0 12/18 Specimen Type: BLOOD No comment entered. Ordering Provider: ALTHEA KHAN Report Released Date/Time: December 10, 2024 08:19 AM Reporting Lab: [facility] [address] [address] Performing Lab: [facility]ITALRAT[facility]PITALTRN [facility]ITAL[facility] [address] [facility] [address] [place] CBC AND DIFF (AUTO) NEUTROPHILS [#/VOLUME] IN BLOOD BY AUTOMATED COUNT 3.00 10*3/u L 2.20 - 7.60 12/18 Specimen Type: BLOOD No comment entered. Ordering Provider: ALTHEA KHAN Report Released Date/Time: December 10, 2024 08:19 AM Reporting Lab: [facility]N [facility] [address] [facility] [address] Performing Lab: [facility]ITALRMOUNT[facility]IEW [facility]OSPITALN [address] [address] [place] CBC AND DIFF (AUTO) LYMPHOCYTES [#/VOLUME] IN BLOOD BY AUTOMATED COUNT 1.48 10*3/u L 1.00 - 3.20 12/18 Specimen Type: BLOOD No comment entered. Ordering Provider: ALTHEA KHAN Report Released Date/Time: December 10, 2024 08:19 AM Reporting Lab: [facility]USE[address] [address] Performing Lab: [facility]PITALRATMORE COMMUNITY HOSPITALTRN [facility]USE[address] [address] [place] CBC AND DIFF (AUTO) EOSINOPHILS [#/VOLUME] IN BLOOD BY AUTOMATED COUNT 0.19 10*3/u L 0.03 - 0.44 12/18 Specimen Type: BLOOD No comment entered. Ordering Provider: ALTHEA KHAN Report Released Date/Time: December 10, 2024 08:19 AM Reporting Lab: [facility] TRN [facility] [address] Performing Lab: [facility] HOSPITALRMOUNTAIN VIEW HOSPITALN [facility]ITALUSE[address] [address] [place] CBC AND DIFF (AUTO) BASOPHILS [#/VOLUME] IN BLOOD BY AUTOMATED COUNT 0.02 10*3/u L 0.01 - 0.13 12/18 Specimen Type: BLOOD No comment entered. Ordering Provider: ALTHEA KHAN Report Released Date/Time: December 10, 2024 08:19 AM Reporting Lab: [facility] [place] [facility] [address] [facility] [address] Performing Lab: [facility] [address] [facility] [address] [place] CBC AND DIFF (AUTO) IMMATURE GRANULOCYTE S/100 LEUKOCYTES IN BLOOD BY AUTOMATED COUNT 0.4 0.0 - 0.7 12/18 Specimen Type: BLOOD No comment entered. Ordering Provider: ALTHEA KHAN Report Released Date/Time: December 10, 2024 08:19 AM Reporting Lab: [facility] [place] [facility] [address] [facility] [address] Performing Lab: [facility]ITAL[facility] [address] [address] [place] CBC AND DIFF (AUTO) IMMATURE GRANULOCYTE S [#/VOLUME] IN BLOOD BY AUTOMATED COUNT 0.02 10*3/u L 0.00 - 0.06 12/18 Specimen Type: BLOOD No comment entered. Ordering Provider: ALTHEA KHAN Report Released Date/Time: December 10, 2024 08:19 AM Reporting Lab: [facility] [place] [address] [address] Performing Lab: [facility] [address] [address] [place] CBC AND DIFF (AUTO) NUCLEATED ERYTHROCYTE S/100 LEUKOCYTES [RATIO] IN BLOOD BY AUTOMATED COUNT 0.0 0.0 - 0.0 12/18 Specimen Type: BLOOD No comment entered. Ordering Provider: ALTHEA KHAN Report Released Date/Time: December 10, 2024 08:19 AM Reporting Lab: [facility] [place] [facility] [address] [facility] [address] Performing Lab: [facility]ITAL[facility] [address] [address] [place] CBC AND DIFF (AUTO) NUCLEATED ERYTHROCYTE S [#/VOLUME] IN BLOOD BY AUTOMATED COUNT 0.00 10*3/u L 0.00 - 0.00 12/18 Specimen Type: BLOOD No comment entered. Ordering Provider: ALTHEA KHAN Report Released Date/Time: December 10, 2024 08:19 AM Reporting Lab: [facility]ITALRATMORE COMMUNITY HOSPITALTRN [facility]ITALUSETS [address] [address] Performing Lab: [facility] HOSPITALRMOUNTAIN VIEW HOSPITALN [facility]PITALUSETS [address] [address] [place] LIPID PANEL FASTING CHOLESTEROL [MASS/VOLUM E] IN SERUM OR PLASMA 161 mg/dL 06/22 Specimen Type: SERUM No comment entered. Ordering Provider: YUMIKO HECK Report Released Date/Time: Mar 30, 2024 07:54 AM Reporting Lab: [facility] [address] [address] Performing Lab: [facility]ERN [facility]ITALUSE[address] [address] [place] LIPID PANEL FASTING TRIGLYCERID E [MASS/VOLUM E] IN SERUM OR PLASMA 74 mg/dL 0 - 150 06/22 Specimen Type: SERUM No comment entered. Ordering Provider: YUMIKO HECK Report Released Date/Time: Mar 30, 2024 07:54 AM Reporting Lab: [facility]PITALRMOUNTAIN VIEW HOSPITALN [address] [address] Performing Lab: [facility]PITALRMOUNTAIN VIEW HOSPITALN [facility]USE[address] [address] [place] LIPID PANEL FASTING CHOLESTEROL IN LDL [MASS/VOLUM E] IN SERUM OR PLASMA BY CALCULATION 101 mg/dL 0 - 129 06/22 Specimen Type: SERUM No comment entered. Ordering Provider: YUMIKO HECK Report Released Date/Time: Mar 30, 2024 07:54 AM Reporting Lab: [facility]PITALRMOUNTAIN VIEW HOSPITALN [address] [address] Performing Lab: [facility]ITALUSE[address] [address] [place] LIPID PANEL FASTING CHOLESTEROL .TOTAL/CHOL ESTEROL IN HDL [MASS RATIO] IN SERUM OR PLASMA 3.6 06/22 Specimen Type: SERUM No comment entered. Ordering Provider: YUMIKO HECK Report Released Date/Time: Mar 30, 2024 07:54 AM Reporting Lab: [facility] [place] [address] [address] Performing Lab: [facility]PITALRMOUNTAIN VIEW HOSPITALN [facility]ITALUSETS [address] [address] [place] LIPID PANEL FASTING CHOLESTEROL IN HDL [MASS/VOLUM E] IN SERUM OR PLASMA 45 mg/dL 40 - 60 06/22 Specimen Type: SERUM No comment entered. Ordering Provider: YUMIKO HECK Report Released Date/Time: Mar 30, 2024 07:54 AM Reporting Lab: [facility] [place] [address] [address] Performing Lab: [facility]OSPITALRMOUNTAIN VIEW HOSPITALN [facility]ITALUSE[address] [address] [place] HEMOGLOBI N A1C PANEL HEMOGLOBIN A1C/HEMOGLO BIN.TOTAL [...] 30, 2024 07:54 AM Reporting Lab: [facility]PITALRMOUNTAIN VIEW HOSPITALN [facility]USE[address] [address] Performing Lab: [facility]PITALRMOUNTAIN VIEW HOSPITALN [facility]ITALUSE[address] [address] [place] BASIC METABOLIC PANEL (fasting) UREA NITROGEN [MASS/VOLUM E] IN SERUM OR PLASMA 20 mg/dL 7 - 25 06/22 Specimen Type: SERUM No comment entered. Ordering Provider: YUMIKO HECK Report Released Date/Time: Mar 30, 2024 07:54 AM Reporting Lab: [facility]PITALRATMORE COMMUNITY HOSPITALTRN [facility]ITALUSE[address] [address] Performing Lab: [facility]ITALUSE[address] [address] [place] BASIC METABOLIC PANEL (fasting) GLUCOSE [MASS/VOLUM E] IN SERUM OR PLASMA 137 mg/dL 65 - 100 06/22 H Specimen Type: SERUM No comment entered. Ordering Provider: YUMIKO HECK Report Released Date/Time: Mar 30, 2024 07:54 AM Reporting Lab: [facility] [address] [address] Performing Lab: [facility] [address] [address] [place] BASIC METABOLIC PANEL (fasting) SODIUM [MOLES/VOLU ME] IN SERUM OR PLASMA 140 mmol/L 135 - 145 06/22 Specimen Type: SERUM No comment entered. Ordering Provider: YUMIKO HECK Report Released Date/Time: Mar 30, 2024 07:54 AM Reporting Lab: [address] [address] Performing Lab: [facility] [address] [address] [place] [facility] [place] BASIC METABOLIC PANEL (fasting) POTASSIUM [MOLES/VOLU ME] IN SERUM OR PLASMA 4.5 mmol/L 3.5 - 5.0 06/22 Specimen Type: SERUM No comment entered. Ordering Provider: YUMIKO HECK Report Released Date/Time: Mar 30, 2024 07:54 AM Reporting Lab: [facility] [address] [address] Performing Lab: [facility] [address] [address] [place] BASIC METABOLIC PANEL (fasting) CHLORIDE [MOLES/VOLU ME] IN SERUM OR PLASMA 106 mmol/L 100 - 110 06/22 Specimen Type: SERUM No comment entered. Ordering Provider: YUMIKO HECK Report Released Date/Time: Mar 30, 2024 07:54 AM Reporting Lab: [facility] [address] [address] Performing Lab: [facility] [address] [address] [place] BASIC METABOLIC PANEL (fasting) CARBON DIOXIDE, TOTAL [MOLES/VOLU ME] IN SERUM OR PLASMA 24 meq/L 20 - 30 06/22 Specimen Type: SERUM No comment entered. Ordering Provider: YUMIKO HECK Report Released Date/Time: Mar 30, 2024 07:54 AM Reporting Lab: [facility] [address] [address] Performing Lab: [facility]USE[address] [address] [place] BASIC METABOLIC PANEL (fasting) CREATININE [MASS/VOLUM E] IN SERUM OR PLASMA 1.41 mg/dL 0.50 - 1.40 06/22 H Specimen Type: SERUM No comment entered. Ordering Provider: YUMIKO HECK Report Released Date/Time: Mar 30, 2024 07:54 AM Reporting Lab: [facility] [address] [address] Performing Lab: [facility]ITALUSE[address] [address] [place] BASIC METABOLIC PANEL (fasting) GLOMERULAR FILTRATION RATE/1.73 SQ M.PREDICTED [VOLUME RATE/AREA] IN SERUM, PLASMA OR BLOOD BY CREATININE- BASED FORMULA (CKD-EPI 2020) 53 mL/min 60 06/22 L Specimen Type: SERUM No comment entered. Ordering Provider: YUMIKO HECK Report Released Date/Time: Mar 30, 2024 07:54 AM Reporting Lab: [facility]USE[address] [address] Performing Lab: [facility]ITALUSE[address] [address] [place] [place] LIVER FUNCTION PROTEIN [MASS/VOLUM E] IN SERUM OR PLASMA 6.6 g/dL 6.0 - 8.3 06/22 Specimen Type: SERUM No comment entered. Ordering Provider: YUMIKO HECK Report Released Date/Time: Mar 30, 2024 07:54 AM Reporting Lab: [facility] [address] [address] Performing Lab: [facility] [place] [facility] [address] [facility] [address] [place] LIVER FUNCTION ALBUMIN [MASS/VOLUM E] IN SERUM OR PLASMA 3.6 g/dL 3.5 - 5.0 06/22 Specimen Type: SERUM No comment entered. Ordering Provider: YUMIKO HECK Report Released Date/Time: Mar 30, 2024 07:54 AM Reporting Lab: [facility] [place] [facility] [address] [facility] [address] Performing Lab: [facility] [place] [address] [address] [place] LIVER FUNCTION ALKALINE PHOSPHATASE [ENZYMATIC ACTIVITY/VO LUME] IN SERUM OR PLASMA 78 U/L 40 - 150 06/22 Specimen Type: SERUM No comment entered. Ordering Provider: YUMIKO HECK Report Released Date/Time: Mar 30, 2024 07:54 AM Reporting Lab: [facility] [place] [facility] [address] [facility] [address] Performing Lab: [facility] [place] [address] [address] [place] LIVER FUNCTION ASPARTATE AMINOTRANSF ERASE [ENZYMATIC ACTIVITY/VO LUME] IN SERUM OR PLASMA 12 U/L 5 - 34 06/22 Specimen Type: SERUM No comment entered. Ordering Provider: YUMIKO HECK Report Released Date/Time: Mar 30, 2024 07:54 AM Reporting Lab: [facility] [place] [address] [address] Performing Lab: [facility] [place] [address] [address] [place] LIVER FUNCTION ALANINE AMINOTRANSF ERASE [ENZYMATIC ACTIVITY/VO LUME] IN SERUM OR PLASMA 15 U/L 06/22 Specimen Type: SERUM No comment entered. Ordering Provider: YUMIKO HECK Report Released Date/Time: Mar 30, 2024 07:54 AM Reporting Lab: [facility] [place] [address] [address] Performing Lab: [facility] [place] [facility] [address] [facility] [address] [facility] LIVER FUNCTION BILIRUBIN.T OTAL [MASS/VOLUM E] IN SERUM OR PLASMA 0.5 mg/dL 0.2 - 1.2 06/22 Specimen Type: SERUM No comment entered. Ordering Provider: YUMIKO HECK Report Released Date/Time: Mar 30, 2024 07:54 AM Reporting Lab: [facility] [address] [facility] [address] Performing Lab: [facility] [address] [facility] [address] [facility] Vital Signs Combined list of inpatient and outpatient Vital Signs from Department of Defense and Veterans Affairs, ranging from 12 months to all on record, depending upon the facility. Vital Sign Value Date Comments Source SYSTOLIC BLOOD PRESSURE 142 12/25/2024 09:34:07 [place] DIASTOLIC BLOOD PRESSURE 83 12/25/2024 09:34:07 [place] PULSE OXIMETRY 97 % 12/25/2024 09:34:07 [facility] WE[facility] 177 12/25/2024 09:34:07 [facility] BMI 29 kg/m2 12/25/2024 09:34:07 [place] PULSE 69 12/25/2024 09:34:07 [facility] SYSTOLIC BLOOD PRESSURE 139 06/26/2024 08:39:11 [place] DIASTOLIC BLOOD PRESSURE 70 06/26/2024 08:39:11 [place] PULSE OXIMETRY 98 06/26/2024 08:39:11 [place] WEIGHT 173.2 06/26/2024 08:39:11 [place] BMI 28 kg/m2 06/26/2024 08:39:11 [place] PAIN 0 06/26/2024 08:39:11 [place] HEIGHT 66 06/26/2024 08:39:11 [place] TEMPERATURE 97.6 06/26/2024 08:39:11 [place] PULSE 67 06/26/2024 08:39:11 [place] RESPIRATION 20 06/26/2024 08:39:11 [place] Encounters Combined list of: 1) Encounters from Department of Veterans Affairs facilities going backup to the last 18 months, not all VA inpatient encounters are included; 2) Encounters from the Department of Defense facilities going backup to 280 months. Location Location Details Encounter Type Encounter Number Reason For Visit Attending Provider ADM Date DC Date Status Disposition Source [facility] En[facility] [id number] 10/02 [facility] [id number] 10/12 [facility] [id number] 10/18 [facility] [id number] 10/29 [facility] [id number] 10/30 [facility] En[facility] [id number] 11/03 [facility] OFFICE O/P EST MOD 30 MIN [id number] Diagnos is: ICD-10- CM I10 Essenti al (primar y) hyperte nsion STELEA,CAR MEN F 11/03 [place] [facility] En[facility] [id number] 11/09 [facility] [id number] 11/12 [facility] [id number] 11/14 [facility] [id number] 11/20 [facility] [id number] 11/21 [facility] [id number] 11/24 [facility] En[facility] [id number] 11/24 [facility] [place] OFF/OP EST NOVEMBER X REQ PHY/QHP [id number] Diagnos is: ICD-10- CM E11.9 Type 2 diabete s mellitu s without complic ations MARTINEZWHITNEY DANIKA [place] OFF/OP EST NOVEMBER X REQ PHY/QHP [id number] Diagnos is: ICD-10- CM Z91.81 History of falling VIELKA-IRAJ VEGA 11/26 [place] [facility] En[facility] [id number] 11/26 [facility] [place] OFFICE O/P EST MOD 30 MIN [id number] Diagnos is: ICD-10- CM T14.8XX A Other injury of unspeci fied body region, initial encount ELENA Becerra 11/26 [place] [facility] En[facility] [id number] Juhi BUCKLEY 11/26 [facility] En[facility] [id number] 12/01 [facility] En[facility] [id number] 12/01 [facility] En[facility] [id number] 12/09 [facility] En[facility] [id number] 12/09 [facility] En[facility] [id number] 12/23 [facility]counter [id number] 12/30 [facility]counter [id number] 12/30 [facility]counter [id number] 01/15 [facility] En[facility] [id number] 01/23 [facility] OFFICE O/P EST MOD 30 MIN [id number] Diagnos is: ICD-10- CM E78.5 Hyperli pidemia , unspeci fied STELEA,CAR MEN F 01/27 [place] [facility] Encounter [id number] 01/27 [facility] QNHP OL DIG ASSMT&MGMT 5-10 [id number] Diagnos is: ICD-10- CM Z04.89 Encount er for examina tion and observa tion for oth reasons KARLO LOPEZ IYA 01/30 [facility] En[facility] [id number] 02/03 [facility] [id number] 03/30 [facility] [id number] 04/22 [facility]counter [id number] [facility] [id number] 05/05 [facility] [id number] [facility] Encounter [id number] 06/19 [facility] OFFICE O/P EST MOD 30 MIN [id number] 1BY. 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 ELENA Dubois 06/26 [facility] [place] [facility] Encounter [id number] 07/17 [facility] [id number] 07/18 [facility] [id number] 07/21 [facility] [id number] 09/17 [facility] En[facility] [id number] 09/23 [facility] OFFICE O/P EST MOD 30 MIN [id number] Diagnos is: ICD-10- CM E11.9 Type 2 diabete s mellitu s without complic ations RANDELLTN DARIUS 09/28 [facility] [facility] [id number] 11/02 [facility]counter [id number] 11/02 [facility] [id number] 11/03 [facility] Encounter [id number] 11/30 [facility] [place] [facility] O/P EST MOD 30 MIN [id number] Diagnos is: ICD-10- CM N18.30 Chronic kidney disease , stage 3 unspeci fied Karina KHAN 12/25 [place] [facility] Encounter [id number] 12/25 [facility] [id number] 12/31 [facility] [id number] 01/05 [facility] [id number] 01/05 [facility] [id number] 01/18 [facility] [id number] 01/25 [facility] Outpatient Encounter [id number] 01/29 [place] [facility]counter [id number] 01/29 [facility] [id number] 02/05 [facility]counter [id number] 02/05 [facility] [id number] 02/15 [facility] Outpatient [facility]counter [id number] 02/15 [facility] Social History Combined list of available smoking, tobacco, and other social history from Department of Defense and Veterans Affairs facilities. Social History Type Response Date Comment Source Tobacco smoking status NHIS VA-TOBACCO USE FORMER CIGARETTES 12/25/20[facility] History of tobacco use VA-TOBACCO NEVER USED OTHER TYPE 12/25/2024 [facility] History of tobacco use MS-TOBACCO FORMER USER 11/04/2023 [place] History of tobacco use MS-TOBACCO FORMER USER 11/30/2022 [place] History of tobacco use MS-TOBACCO QUIT 15 YRS OR MORE 08/24/2021 [place] History of tobacco use VA-TOBACCO FORMER USER 08/23/2020 [place] History of tobacco use MS-TOBACCO QUIT 15 YRS OR MORE 02/02/2019 [place] History of tobacco use VA-TOBACCO FORMER USER 06/16/2018 [place] History of tobacco use QUIT TOBACCO USE > 7 YEARS AGO 01/23/2017 reports quitting 25/30 years ago [place] History of tobacco use QUIT TOBACCO USE > 7 YEARS AGO 01/19/2016 [place] History of tobacco use QUIT TOBACCO USE > 7 YEARS AGO 04/14/2010 stopped tobacco 30 years ago [place] Plan of Care List of future care activities from Department of Veterans Affairs facilities. Additional future care activities may be listed in the Assessment and Plan section. Date/Time Care Activity Care Activity Detail Facili ty 06/25/2025 AMBULATORY - MEDICINE AMBULATORY - MEDICI [place] Advance Directives List of completed, amended, or rescinded Advance Directives on record at Department of Veterans Affairs facilities. An actual copy of the Directive is not included. Date Advance Directive Provider Source 11/19/2017 ADVANCE DIRECTIVE CRYSTAL BYERS
--- NOTE | 2025-03-18 10:07 | HO.NEPHOV ---
Vital Signs 03/18/25 10:14 Height 5 ft 7 in Weight 174 lb 6 oz BMI 27.3 BP 124/80 Blood Pressure Location Lt brachial Position Sitting Pulse 61 Pulse Source Pulse Oximeter Pulse Oximetry (%) 98 Oxygen Delivery Method Room Air Intake Visit Reasons: 6 mon follow up-[facility] Restaurant Assistant Required: No Accompanied by: Self / Same As Patient Allergies No Known Allergies Allergy (Verified 03/18/25 10:13) HPI Comments Details: Thomas was seen for follow up of his chronic kidney disease and nephrolithiasis. His blood sugar control is optimal. He follows up with Urology for his renal stone disease. He denies any nausea, vomiting, diarrhea hematuria, chest pain, shortness of, pedal edema or orthostatic symptoms. [facility] He maintains good hydration and avoids nonsteroidal anti-inflammatories. There were no new active issues at the time ON [facility] OF [facility] Medical History (Updated 12/10/23 @ 14:32 by Rmay Diaz MD) Essential (primary) hypertension Chronic kidney disease, stage 3a Renal stone Surgical History H/O hemorrhoidectomy H/O colonoscopy Family History Mother Cancer Father Heart disease Brother Heart disease Social History Alcohol intake: never Patient Tobacco Use Status: Former Tobacco user Review of Systems Const All systems reviewed & are unremarkable except as noted in HPI and below Physical Exam Const General: comfortable and no acute distress Orientation/consciousness: patient oriented x3 HEENT Head: Yes normocephalic Mouth: Normal oral and palatal mucosa present Eyes EOM: EOMs intact bilaterally Neck Neck: Yes supple Resp Auscultation: clear to auscultation bilaterally Cardio Jugular venous distension: no JVD Rate: regular rate GI Palpation (GI): Soft to palpation Auscultation: normal bowel sounds General: Yes no CVA tenderness Back/Spine/Pelvis Back: no CVA tenderness Skin General skin exam: no rashes or lesions noted Neuro General: patient oriented x3 and moves all extremities Extrem General: Yes no pedal edema Results Reviewed Nephrology Results: Hgb, (14.0-18.0) 12.5 g/dl L 03/25/24 WBC, (4.8-10.8) 5.2 X10*3/uL 03/25/24 Plt Count, (160-400) 211 X10*3/uL 03/25/24 Sodium, (135-145) 141 mmol/L 03/16/25 Potassium, (3.3-5.1) 3.8 mmol/L 03/16/25 Chloride, (96-108) 106 mmol/L 03/16/25 Carbon Dioxide, (22-29) 25 mmol/L 03/16/25 BUN, (9-16) 20 mg/dL H 03/16/25 Creatinine, (0.5-1.4) 1.65 mg/dL H 03/16/25 Calcium, (8.4-10.2) 9.2 mg/dL 03/25/24 Urine Creatinine 367.26 mg/dL 03/16/25 Protein/Creatinin Ratio, (<0.2) 0.08 03/16/25 Assessment & Plan Assessment & Plan (1) Chronic kidney disease, stage 3a: Code(s): N18.31 - Chronic kidney disease, stage 3a Category: Medical (2) Renal stone: Code(s): N20.0 - Calculus of kidney Category: Medical (3) Essential (primary) hypertension: Code(s): I10 - Essential (primary) hypertension Category: Medical Plan Thomas has CKD stage 3 at baseline. His renal functions is fairly stable. He avoids nonsteroidal anti-inflammatories. His blood pressure has been at goal. He should maintain better blood sugar control. He was encouraged to maintain good hydration and avoid nonsteroidal anti-inflammatories. I did not make any medication changes today but rather ordered follow-up blood work . Answered all questions. Follow-up appointment given. Orders: Orders Creatinine 3 Months I10 - Essential (primary) hypertension, N18.31 - Chronic kidney disease, stage 3a, N20.0 - Calculus of kidney Blood Urea Nitrogen 3 Months I10 - Essential (primary) hypertension, N18.31 - Chronic kidney disease, stage 3a, N20.0 - Calculus of kidney Electrolytes 3 Months I10 - Essential (primary) hypertension, N18.31 - Chronic kidney disease, stage 3a, N20.0 - Calculus of kidney Calcium 3 Months I10 - Essential (primary) hypertension, N18.31 - Chronic kidney disease, stage 3a, N20.0 - Calculus of kidney Coding Level of Care Code Est Pt Level 4 (83660) Diagnoses Chronic kidney disease, stage 3a N18.31 Renal stone N20.0 Essential (primary) hypertension I10
[2025-03-18 10:14] VITALS: BP 124/80; PULSE 61; O2SAT 98; BMI 27.3
--- OUTSIDE RECORDS SUMMARY | 2025-03-18 11:08 | XMS_ITS | Clinical Summary ---
Author Organization [email or web address] Address [address] [facility] [address] [place] [address] Care Team Providers Care Medical Instructor Name Role Phone Unavailable Primary Care Provider [...]
--- OUTSIDE RECORDS SUMMARY | 2025-03-18 11:08 | XMS_ITS | Encounter Summary ---
Author Organization [facility] Address [address] [facility] [address] [place] [address] Care Team Providers Care Assistant Professor Of Anthropology Name Role Phone Unavailable Primary Care Provider Unavailabl e Encounter Details Date Type Department Care Team (Latest Contact Info) Description 05/30/2021 Abstract [facility] CONVERSIONS Dental, Provider, DDS Social History [...]
--- OUTSIDE RECORDS SUMMARY | 2025-03-18 11:08 | XMS_ITS | Clinical Summary ---
Author Organization [facility] Address [address] [facility] [address] [place] [address] Phone Care Team Providers Care Family Resource Management Professor Name Role Phone Sonali Arnett MD Primary Care Provider [phone] Allergies No known active allergies Medications metFORMIN [...] k/uL PVNMA 10/27/2019 us Rtama Conversion LAB [id number] LICITED RESULTS Final Result PVNMA from Last 3 Months or Most Recently Relevant to Health Maintenance Insurance Regions 1,2,3 (VACCN) [employer] 1,2,3 (VACCN) Care Teams Family Resource Management Professor Relationship Specialty Start Date End Date Sonali Arnett MD [address] [facility] [place] PCP - General 08/01/20
== END 2025-03-18 10:27 | disposition home or self-care (01) ==
LOC: HO.HKAS 09:57
PROVIDERS: Visit Provider Internal Medicine Nephrology
DX: N18.31 Chronic kidney disease, stage 3a (principal); N20.0 Calculus of kidney; I10 Essential (primary) hypertension
CPT/HCPCS: 99214

== ENCOUNTER → 2025-03-18 09:56 | Outpatient (BNVA) | payer OTHER, SELFPAY | PROVIDERS: Visit Provider Internal Medicine Nephrology | DX: N18.31 Chronic kidney disease, stage 3a (principal); I10 Essential (primary) hypertension; N20.0 Calculus of kidney | CPT/HCPCS: 99212 ==

== ENCOUNTER 2025-07-02 11:37 | Outpatient (REF) | payer OTHER, SELFPAY ==
[2025-07-02 14:28] LABS: Anion Gap 15 (12-20); Blood Urea Nitrogen 18 mg/dL (9-16); Calcium 8.9 mg/dL (8.4-10.2); Carbon Dioxide 24 mmol/L (22-29); Chloride 106 mmol/L (96-108); Estimated Glomerular Filt Rate 46; Potassium 4.0 mmol/L (3.3-5.1); Sodium 141 mmol/L (135-145)
== END 2025-07-02 11:38 | disposition home or self-care (01) ==
LOC: HO.HKASLDS 11:37
PROVIDERS: Visit Provider Internal Medicine Nephrology
DX: I12.9 Hypertensive chronic kidney disease with stage 1 through stage 4 chronic kidney disease, or unspecified chronic kidney disease (principal); N18.31 Chronic kidney disease, stage 3a; N20.0 Calculus of kidney
CPT/HCPCS: 36415; 80051; 82310; 82565; 84520

== ENCOUNTER 2025-07-06 09:01 | Outpatient (AMB) | payer OTHER, SELFPAY ==
--- NOTE | 2025-07-06 09:28 | HO.NEPHOV ---
Vital Signs 07/06/25 09:29 Height 5 ft 7 in Weight 172 lb 8 oz BMI 27.0 BP 130/70 Blood Pressure Location Rt brachial Position Sitting Pulse 64 Pulse Source Pulse Oximeter Pulse Oximetry (%) 99 Oxygen Delivery Method Room Air Intake Visit Reasons: 3mon f/u w/labs-LVM Surgical Technician Required: No Accompanied by: Self / Same As Patient Allergies No Known Allergies Allergy (Verified 07/06/25 09:29) HPI Comments Details: Thomas was seen for follow up of his chronic kidney disease and nephrolithiasis. His blood sugar control is optimal. He follows up with Urology for his renal stone disease. He denies any nausea, vomiting, diarrhea hematuria, chest pain, shortness of, pedal edema or orthostatic symptoms. [facility] He maintains good hydration and avoids nonsteroidal anti-inflammatories. There were no new active issues at the time [facility] Medical History (Updated 12/10/23 @ 14:32 by Ramy Diaz MD) Essential (primary) hypertension Chronic kidney disease, stage 3a Renal stone Surgical History H/O hemorrhoidectomy H/O colonoscopy Family History Mother Cancer Father Heart disease Brother Heart disease Social History Alcohol intake: never Patient Tobacco Use Status: Former Tobacco user Review of Systems Const All systems reviewed & are unremarkable except as noted in HPI and below Physical Exam Const General: comfortable and no acute distress Orientation/consciousness: patient oriented x3 HEENT Head: Yes normocephalic Mouth: Normal oral and palatal mucosa present Eyes EOM: EOMs intact bilaterally Neck Neck: Yes supple Resp Auscultation: clear to auscultation bilaterally Cardio Jugular venous distension: no JVD Rate: regular rate GI Palpation (GI): Soft to palpation Auscultation: normal bowel sounds General: Yes no CVA tenderness Back/Spine/Pelvis Back: no CVA tenderness Skin General skin exam: no rashes or lesions noted Neuro General: patient oriented x3 and moves all extremities Extrem General: Yes no pedal edema Results Reviewed Nephrology Results: Hgb, (14.0-18.0) 12.5 g/dl L 03/25/24 WBC, (4.8-10.8) 5.2 X10*3/uL 03/25/24 Plt Count, (160-400) 211 X10*3/uL 03/25/24 Sodium, (135-145) 141 mmol/L 07/02/25 Potassium, (3.3-5.1) 4.0 mmol/L 07/02/25 Chloride, (96-108) 106 mmol/L 07/02/25 Carbon Dioxide, (22-29) 24 mmol/L 07/02/25 BUN, (9-16) 18 mg/dL H 07/02/25 Creatinine, (0.5-1.4) 1.49 mg/dL H 07/02/25 Calcium, (8.4-10.2) 8.9 mg/dL 07/02/25 Urine Creatinine 367.26 mg/dL 03/16/25 Protein/Creatinin Ratio, (<0.2) 0.08 03/16/25 Assessment & Plan Assessment & Plan (1) Chronic kidney disease, stage 3a: Code(s): N18.31 - Chronic kidney disease, stage 3a Category: Medical (2) Essential (primary) hypertension: Code(s): I10 - Essential (primary) hypertension Category: Medical (3) Renal stone: Code(s): N20.0 - Calculus of kidney Category: Medical Plan Thomas has CKD stage 3 at baseline. His renal functions is fairly stable. He avoids nonsteroidal anti-inflammatories. His blood pressure has been at goal. He should maintain better blood sugar control. He is great candidate for SGLT2 i. He was encouraged to maintain good hydration and avoid nonsteroidal anti-inflammatories. I did not make any medication changes today but rather ordered follow-up blood work . Answered all questions. Follow-up appointment given. Orders: Orders Electrolytes 6 Months I10 - Essential (primary) hypertension, N18.31 - Chronic kidney disease, stage 3a, N20.0 - Calculus of kidney Blood Urea Nitrogen 6 Months I10 - Essential (primary) hypertension, N18.31 - Chronic kidney disease, stage 3a, N20.0 - Calculus of kidney Creatinine 6 Months I10 - Essential (primary) hypertension, N18.31 - Chronic kidney disease, stage 3a, N20.0 - Calculus of kidney Coding Level of Care Code Est Pt Level 4 (71242) Diagnoses Chronic kidney disease, stage 3a N18.31 Essential (primary) hypertension I10 Renal stone N20.0
[2025-07-06 09:29] VITALS: BP 130/70; PULSE 64; O2SAT 99; BMI 27.0
--- OUTSIDE RECORDS SUMMARY | 2025-07-06 10:12 | XMS_ITS | Clinical Summary ---
Author Organization [employer] Address [address] [facility] [address] [place] [address] Care Team Providers Care Plastics Technician Name Role Phone Unavailable Primary Care Provider [...] of 2) 2001 COVID-19 Vaccine ( - 2024-2 6 season) 2025 Influenza Vaccine (#1) 2025 RSV Patients and [...]
--- OUTSIDE RECORDS SUMMARY | 2025-07-06 10:12 | XMS_ITS | Encounter Summary ---
Author Organization [employer] Address [address] [facility] [address] [place] [address] Care Team Providers Care Meteorology Faculty Member Name Role Phone Unavailable Primary Care Provider Unavailabl e Encounter Details Date Type Department Care Team (Latest Contact Info) Description 05/30/2021 Abstract [facility] CONVERSIONS Dental, Provider, DDS Social History [...]
== END 2025-07-06 09:46 | disposition home or self-care (01) ==
LOC: HO.HKAS 09:02
PROVIDERS: Visit Provider Internal Medicine Nephrology
DX: N18.31 Chronic kidney disease, stage 3a (principal); I10 Essential (primary) hypertension; N20.0 Calculus of kidney
CPT/HCPCS: 99214

== ENCOUNTER → 2025-07-06 09:01 | Outpatient (BNVA) | payer OTHER, SELFPAY | PROVIDERS: Visit Provider Internal Medicine Nephrology | DX: I12.9 Hypertensive chronic kidney disease with stage 1 through stage 4 chronic kidney disease, or unspecified chronic kidney disease (principal); N18.31 Chronic kidney disease, stage 3a; N20.0 Calculus of kidney; Z87.891 Personal history of nicotine dependence | CPT/HCPCS: 99212 ==